=== PATIENT | male | born 1950 | race Caucasian/White ===

== ENCOUNTER → 2017-10-11 | Outpatient (CLI) | payer MEDICARE, OTHER ==
[2017-10-11 10:46] LABS: Basophils % (A) 0 %; Eosinophils # (A) 0.3 k/uL (0-0.7); Eosinophils % (A) 3 %; HCT 44.2 % (39.0-53.0); HGB 15.1 gm/dL (13.0-17.5); Lymphocytes # (A) 2.3 k/uL (1.0-4.8); Lymphocytes % (A) 25 %; MCH 33.8 pg (25.0-35.0); MCHC 34.1 g/dL (31.0-37.0); MCV 99.2 fL (80.0-100.0); Mean Platelet Volume 7.1; Monocytes # (A) 0.8 k/uL (0-1.0); Monocytes % (A) 9 %; Neutrophils # (A) 5.5 k/uL (1.3-7.7); Neutrophils % (A) 59 %; Platelet Count 243 k/uL (150-450); RBC 4.46 m/uL (4.30-5.90); RDW 13.4 % (11.5-15.5); WBC 9.3 k/uL (3.8-10.6)
[2017-10-11 11:55] LABS: Albumin 4.2 g/dL (3.5-5.0); Potassium 5.1 mmol/L (3.5-5.1); Total Protein 7.3 g/dL (6.3-8.2)
[2017-10-11 12:11] LABS: T4, Free (Free Thyroxine) 0.85 ng/dL (0.78-2.19)
[2017-10-11 12:25] LABS: PSA Annual Screen 0.86 ng/mL (0.00-4.00)
== END | disposition home or self-care (01) ==
LOC: LABWHC1 10:05
PROVIDERS: ATTEND Internal Medicine
DX: I10 Essential (primary) hypertension (principal); E78.5 Hyperlipidemia, unspecified
CPT/HCPCS: 84439; 80061; 80053; 84443; 85025; 36415; G0103

== ENCOUNTER 2020-06-27 09:07 | Emergency (ER) | payer MEDICARE, OTHER ==
[2020-06-27 09:24] VITALS: TEMP 99.4
--- NOTE | 2020-06-27 09:53 | ED ---
General Adult HPI - General Chief complaint: Fever Stated complaint: Fever,Weakness Time Seen by Provider: 06/27/20 09:20 Source: patient, RN notes reviewed, old records reviewed Mode of arrival: ambulatory Limitations: no limitations - History of Present Illness Initial comments: This is a 70-year-old male who presents emergency Department with a past medical history significant for COPD. Patient states he comes to the emergency department today because he has had a low-grade fever for 4 days and feeling very weak. Patient denies any shortness of breath more than normal. Patient denies a cough. Patient denies chest pain palpitations. Patient denies headache patient with numbness weakness. Patient denies lightheadedness or dizziness. Patient denies abdominal pain. Patient denies any nausea vomiting but does have diarrhea. Patient denies any swelling to the legs or calf tenderness. - Related Data Home Medications Medication Instructions Recorded Confirmed ALPRAZolam [Xanax] 0.25 tab PO DAILY PRN 02/19/14 06/27/20 Acetaminophen [Tylenol] 325 mg PO QID 02/19/14 06/27/20 Acetaminophen/Diphenhydramine 2 tab PO HS 02/19/14 06/27/20 [Tylenol Pm] Budesonide-Formot 160-4.5 Mcg 2 puff INHALATION RT-BID 02/19/14 06/27/20 [Symbicort 160-4.5 Mcg Inhaler] Cholecalciferol [Vitamin D3] 1,000 unit PO DAILY 02/19/14 06/27/20 Clopidogrel Bisulfate [Clopidogrel] 75 mg PO HS 02/19/14 06/27/20 Levalbuterol Hfa Inhaler [Xopenex 1 puff INHALATION RT-Q6H PRN 02/19/14 06/27/20 Hfa Inhaler] Multivitamin [Men's Multi-Vitamin] 1 tab PO BID 02/19/14 06/27/20 Nitroglycerin Sl Tabs [Nitrostat] 0.4 mg SUBLINGUAL Q5M PRN 02/19/14 06/27/20 Omeprazole 20 mg PO HS 02/19/14 06/27/20 Vitamin B Complex 1 cap PO DAILY 02/19/14 06/27/20 Fish Oil/Flaxseed Oil/Borage Oil 800 mg PO BID 11/16/16 12/26/20 Magnesium Oxide [Mag-Ox] 400 mg PO HS 05/18/16 06/27/20 Metoprolol Tartrate [Lopressor] 25 mg PO BID 05/18/16 06/27/20 Otc Prostate Supplement 700 mg PO TID 05/18/16 06/27/20 Simvastatin [Zocor] 20 mg PO HS 05/18/16 06/27/20 Tongkat Ali Supplement 900 mg PO TID 05/18/16 06/27/20 Ubidecarenone [Co Q-10] 200 mg PO BID 05/18/16 06/27/20 lisinopriL [Zestril] 5 mg PO HS 05/18/16 06/27/20 Previous Rx's Medication Instructions Recorded Dexamethasone [Decadron] 6 mg PO DAILY #10 tablet 06/27/20 Allergies Allergy/AdvReac Type Severity Reaction Status Date / Time No Known Allergies Allergy Verified 06/27/20 10:46 Review of Systems ROS Statement: Those systems with pertinent positive or pertinent negative responses have been documented in the HPI. ROS Other: All systems not noted in ROS Statement are negative. Past Medical History Past Medical History: Asthma, COPD, Hyperlipidemia, Hypertension, Myocardial Infarction ([place]) Additional Past Medical History / Comment(s): AAA History of Any Multi-Drug Resistant Organisms: None Reported Past Surgical History: Coronary Bypass/CABG, Heart Catheterization With Stent Additional Past Surgical History / Comment(s): carotid stent Past Psychological History: No Psychological Hx Reported Smoking Status: Former smoker Past Alcohol Use History: Daily Past Drug Use History: None Reported General Exam - General Exam Comments Initial Comments: GENERAL: Patient is well-developed and well-nourished. Patient is nontoxic and well- hydrated and is in mild distress. ENT: Neck is soft and supple. No significant lymphadenopathy is noted. Oropharynx is clear. Moist mucous membranes. Neck has full range of motion without eliciting any pain. EYES: The sclera were anicteric and conjunctiva were pink and moist. Extraocular movements were intact and pupils were equal round and reactive to light. Eyelids were unremarkable. PULMONARY: Unlabored respirations. Good breath sounds bilaterally. No audible rales rhonchi or wheezing was noted. CARDIOVASCULAR: There is a regular rate and rhythm without any murmurs gallops or rubs. ABDOMEN: Soft and nontender with normal bowel sounds. SKIN: Skin is clear with no lesions or rashes and otherwise unremarkable. NEUROLOGIC: Patient is alert and oriented x3. Cranial nerves II through XII are grossly intact. Motor and sensory are also intact. Normal speech, volume and content. Symmetrical smile. MUSCULOSKELETAL: Normal extremities with adequate strength and full range of motion. LYMPHATICS: No significant lymphadenopathy is noted PSYCHIATRIC: Normal psychiatric evaluation. Limitations: no limitations Course Vital Signs 06/27/20 09:20 Temperature 99.4 F Pulse Rate 102 H Respiratory 18 Rate Blood Pressure 143/80 O2 Sat by Pulse 94 L Oximetry Medical Decision Making - Medical Decision Making EKG shows normal sinus rhythm at [address] interval is on a 42 QRS is under 20 QT interval 348 QTC is 444. Patient's EKG shows no ST segment elevation or depression. Patient has some patchy infiltrates bilaterally. I went back into the room to reevaluate the patient he stated he did not feel any more short of breath. Patient did not want to stay in the hospital he wanted to go home and stated he would come back if he had any shortness of breath or worsening symptoms. - Lab Data Result diagrams: 06/27/20 09:57 06/27/20 09:57 Lab Results 06/27/20 06/27/20 06/27/20 Range/Units 09:57 09:57 09:57 WBC 7.1 (3.8-10.6) k/uL RBC 4.63 (4.30-5.90) m/uL Hgb 16.1 (13.0-17.5) gm/dL Hct 46.5 (39.0-53.0) % MCV 100.4 H (80.0-100.0) fL MCH 34.9 (25.0-35.0) pg MCHC 34.7 (31.0-37.0) g/dL RDW 13.5 (11.5-15.5) % Plt Count 143 L (150-450) k/uL MPV 7.6 Neutrophils % 71 % Lymphocytes % 13 % Monocytes % 9 % Eosinophils % 0 % Basophils % 3 % Neutrophils # 5.0 (1.3-7.7) k/uL Lymphocytes # 1.0 (1.0-4.8) k/uL Monocytes # 0.6 (0-1.0) k/uL Eosinophils # 0.0 (0-0.7) k/uL Basophils # 0.2 (0-0.2) k/uL PT 10.2 (9.0-12.0) sec INR 1.0 (<1.2) APTT 29.8 (22.0-30.0) sec D-Dimer 0.90 H (<0.60) mg/L FEU Sodium 134 L (137-145) mmol/L Potassium 4.5 (3.5-5.1) mmol/L Chloride 103 (98-107) mmol/L Carbon Dioxide 22 (22-30) mmol/L Anion Gap 9 mmol/L BUN 19 (9-20) mg/dL Creatinine 0.94 (0.66-1.25) mg/dL Est GFR (CKD-EPI)AfAm >90 (>60 ml/min/1.73 sqM) Est GFR (CKD-EPI)NonAf 81 (>60 ml/min/1.73 sqM) Glucose 119 H (74-99) mg/dL Plasma Lactic Acid Frederick (0.7-2.0) mmol/L Calcium 9.5 (8.4-10.2) mg/dL Magnesium 2.0 (1.6-2.3) mg/dL Total Bilirubin 0.7 (0.2-1.3) mg/dL AST 57 (17-59) U/L ALT 48 (4-49) U/L Alkaline Phosphatase 87 (38-126) U/L Lactate Dehydrogenase 643 H (313-618) U/L C-Reactive Protein 19.3 H (<10.0) mg/L Total Protein 7.5 (6.3-8.2) g/dL Albumin 4.1 (3.5-5.0) g/dL Urine Color Urine Appearance (Clear) Urine pH (5.0-8.0) Ur Specific [place] (1.001-1.035) Urine Protein (Negative) Urine Glucose (UA) (Negative) Urine Ketones (Negative) Urine Blood (Negative) Urine Nitrite (Negative) Urine Bilirubin (Negative) Urine Urobilinogen (<2.0) mg/dL Ur Leukocyte Esterase (Negative) Urine RBC (0-5) /hpf Urine WBC (0-5) /hpf Hyaline Casts (0-2) /lpf Urine Mucus (None) /hpf Coronavirus (PCR) (Not Detectd) 06/27/20 06/27/20 06/27/20 Range/Units 09:57 09:57 10:17 WBC (3.8-10.6) k/uL RBC (4.30-5.90) m/uL Hgb (13.0-17.5) gm/dL Hct (39.0-53.0) % MCV (80.0-100.0) fL MCH (25.0-35.0) pg MCHC (31.0-37.0) g/dL RDW (11.5-15.5) % Plt Count (150-450) k/uL MPV Neutrophils % % Lymphocytes % % Monocytes % % Eosinophils % % Basophils % % Neutrophils # (1.3-7.7) k/uL Lymphocytes # (1.0-4.8) k/uL Monocytes # (0-1.0) k/uL Eosinophils # (0-0.7) k/uL Basophils # (0-0.2) k/uL PT (9.0-12.0) sec INR (<1.2) APTT (22.0-30.0) sec D-Dimer (<0.60) mg/L FEU Sodium (137-145) mmol/L Potassium (3.5-5.1) mmol/L Chloride (98-107) mmol/L Carbon Dioxide (22-30) mmol/L Anion Gap mmol/L BUN (9-20) mg/dL Creatinine (0.66-1.25) mg/dL Est GFR (CKD-EPI)AfAm (>60 ml/min/1.73 sqM) Est GFR (CKD-EPI)NonAf (>60 ml/min/1.73 sqM) Glucose (74-99) mg/dL Plasma Lactic Acid Frederick 1.1 (0.7-2.0) mmol/L Calcium (8.4-10.2) mg/dL Magnesium (1.6-2.3) mg/dL Total Bilirubin (0.2-1.3) mg/dL AST (17-59) U/L ALT (4-49) U/L Alkaline Phosphatase (38-126) U/L Lactate Dehydrogenase (313-618) U/L C-Reactive Protein (<10.0) mg/L Total Protein (6.3-8.2) g/dL Albumin (3.5-5.0) g/dL Urine Color Yellow Urine Appearance Clear (Clear) Urine pH 6.0 (5.0-8.0) Ur Specific [place] 1.025 (1.001-1.035) Urine Protein 2+ H (Negative) Urine Glucose (UA) Negative (Negative) Urine Ketones 1+ H (Negative) Urine Blood Negative (Negative) Urine Nitrite Negative (Negative) Urine Bilirubin Negative (Negative) Urine Urobilinogen <2.0 (<2.0) mg/dL Ur Leukocyte Esterase Negative (Negative) Urine RBC 1 (0-5) /hpf Urine WBC 1 (0-5) /hpf Hyaline Casts 3 H (0-2) /lpf Urine Mucus Few H (None) /hpf Coronavirus (PCR) Detected A (Not Detectd) Disposition Clinical Impression: Pneumonia due to COVID-19 virus Disposition: HOME SELF-CARE Condition: Good Instructions (If sedation given, give patient instructions): Viral Pneumonia (ED) Prescriptions: Dexamethasone [Decadron] 6 mg PO DAILY #10 tablet Is patient prescribed a controlled substance at d/c from ED?: No Referrals: Alex Ty MD [Primary Care Provider] - 1-2 days Time of Disposition: 12:20
[2020-06-27 10:07] LABS: Basophils # (A) 0.2 k/uL (0-0.2); Basophils % (A) 3 %; Eosinophils % (A) 0 %; HCT 46.5 % (39.0-53.0); HGB 16.1 gm/dL (13.0-17.5); Lymphocytes % (A) 13 %; MCH 34.9 pg (25.0-35.0); MCHC 34.7 g/dL (31.0-37.0); MCV 100.4 fL (80.0-100.0); Mean Platelet Volume 7.6; Monocytes # (A) 0.6 k/uL (0-1.0); Monocytes % (A) 9 %; Neutrophils % (A) 71 %; Platelet Count 143 k/uL (150-450); RBC 4.63 m/uL (4.30-5.90); RDW 13.5 % (11.5-15.5); WBC 7.1 k/uL (3.8-10.6)
--- NOTE | 2020-06-27 10:12 | XR ---
EXAMINATION TYPE: XR chest 1V portable DATE OF EXAM: 06/27/2020 Comparison: 09/28/2011 Clinical History: 70-year-old male cough, Suspected COVID-19 pneumonia Findings: Median sternotomy wires and post-CABG clips. Heart borderline enlarged. Mild interstitial prominence. Patchy peripheral lung opacities on both sides. No sizable effusion. Impression: Patchy peripheral opacities on both sides. COVID pneumonia not excluded.
[2020-06-27 10:19] LABS: ALT 48 U/L (4-49); AST 57 U/L (17-59); African American GFR (CKD) >90 (>60 ml/min/1.73 sqM); Albumin 4.1 g/dL (3.5-5.0); Alkaline Phosphatase 87 U/L (38-126); Anion Gap 9 mmol/L; Blood Urea Nitrogen 19 mg/dL (9-20); C Reactive Protein 19.3 mg/L (<10.0); Calcium 9.5 mg/dL (8.4-10.2); Carbon Dioxide 22 mmol/L (22-30); Chloride 103 mmol/L (98-107); Glucose 119 mg/dL (74-99); LDH 643 U/L (313-618); Non-African American GFR(CKD) 81 (>60 ml/min/1.73 sqM); Potassium 4.5 mmol/L (3.5-5.1); Sodium 134 mmol/L (137-145); Total Bilirubin 0.7 mg/dL (0.2-1.3); Total Protein 7.5 g/dL (6.3-8.2)
[2020-06-27 10:21] LABS: Partial Thromboplastin Time 29.8 sec (22.0-30.0); Prothrombin Time 10.2 sec (9.0-12.0)
[2020-06-27] MEDS ORDERED: dexAMETHasone 2 MG TAB PO STA (10:21)
[2020-06-27 10:26] LABS: D-Dimer 0.9 mg/L FEU (<0.60)
[2020-06-27 10:31] LABS: Appearance,Urine Clear (Clear); Bilirubin,Urine Negative (Negative); Blood,Urine Negative (Negative); Color,Urine Yellow; Glucose,Urine (UA) Negative (Negative); Hyaline Casts,Urine 3 /lpf (0-2); Ketones,Urine 1+ (Negative); Leukocyte Esterase,Urine Negative (Negative); Mucus,Urine Few /hpf; Nitrite,Urine Negative (Negative); Protein,Urine 2+ (Negative); RBC,Urine 1 /hpf (0-5); Specific Gravity,Urine 1.025 (1.001-1.035); Urobilinogen,Urine <2.0 mg/dL (<2.0); WBC,Urine 1 /hpf (0-5)
[2020-06-27 12:35] VITALS: BP 144/70; PULSE 88; RESP 16
[2020-06-27 17:06] LABS: Ferritin 704.9 ng/mL (22.0-322.0)
== END 2020-06-27 12:34 | disposition home or self-care (01) ==
LOC: EC 09:07
DX: U07.1 COVID-19 (principal); J12.89 Other viral pneumonia; J44.9 Chronic obstructive pulmonary disease, unspecified; I10 Essential (primary) hypertension; E78.5 Hyperlipidemia, unspecified; I25.2 Old myocardial infarction; Z79.51 Long term (current) use of inhaled steroids; Z79.02 Long term (current) use of antithrombotics/antiplatelets; Z79.899 Other long term (current) drug therapy; Z95.1 Presence of aortocoronary bypass graft; Z95.5 Presence of coronary angioplasty implant and graft; Z87.891 Personal history of nicotine dependence
CPT/HCPCS: 36415; 93005; 85379; 80053; 82728; 83605; 83615; 83735; 85025; 85610; 85730; 86140; 81001; 87040; 84145; 87635; 71045; 99284; J8540

== ENCOUNTER 2020-10-02 09:02 | Inpatient (IN) | payer MEDICARE, OTHER ==
[2020-10-02] MEDS ORDERED: SODIUM CHLORIDE 0.9% 500 ML 500 ML IV STA (09:42)
--- NOTE | 2020-10-02 09:54 | ED ---
General Adult HPI - General Chief complaint: Shortness of Breath Stated complaint: Covid pneumonia Time Seen by Provider: 10/02/20 09:20 Source: patient, RN notes reviewed, old records reviewed Limitations: no limitations - History of Present Illness Initial comments: This is a 70-year-old male with past medical history significant for bypass surgery congestive heart failure and more recently in June COVID. Patient states since he had COVID he has had increasing weakness and today he was so weak he was finding it difficult to ambulate. Patient states that she generali zed weakness is not focal weakness. Patient denies any fever chills. Patient states he only coughs occasionally at night. Patient denies any shortness of breath or chest pain. Patient denies any palpitations. Patient denies abdominal pain patient denies nausea vomiting or diarrhea. Patient denies any recent injury or trauma. Patient has swelling to the legs or calf tenderness. - Related Data Home Medications Medication Instructions Recorded Confirmed Acetaminophen [Tylenol] 650 mg PO Q4H PRN 02/19/14 10/02/20 Acetaminophen/Diphenhydramine 1 tab PO HS 02/19/14 10/02/20 [Tylenol Pm] Nitroglycerin Sl Tabs [Nitrostat] 0.4 mg SUBLINGUAL Q5M PRN 02/19/14 10/02/20 Vitamin B Complex 1 cap PO DAILY 02/19/14 10/02/20 Metoprolol Tartrate [Lopressor] 25 mg PO BID 05/18/16 10/02/20 Otc Prostate Supplement 1 tab PO TID 05/18/16 10/02/20 Simvastatin [Zocor] 20 mg PO HS 05/18/16 10/02/20 Apixaban [Eliquis] 5 mg PO BID 10/02/20 10/02/20 Aspirin EC [Ecotrin Low Dose] 81 mg PO W/SUPPER 10/02/20 10/02/20 Ergocalciferol (Vitamin D2) 50 mcg PO DAILY 10/02/20 10/02/20 [Vitamin D2 (2000 Iu)] L.acidoph,Paracasei, B.lactis 1 cap PO DAILY 10/02/20 10/02/20 [Probiotic] Magnesium Unknown Dose 2 tab PO W/SUPPER 10/02/20 10/02/20 Allergies Allergy/AdvReac Type Severity Reaction Status Date / Time No Known Allergies Allergy Verified 10/02/20 10:55 Review of Systems ROS Statement: Those systems with pertinent positive or pertinent negative responses have been documented in the HPI. ROS Other: All systems not noted in ROS Statement are negative. Past Medical History Past Medical History: Asthma, COPD, Hyperlipidemia, Hypertension, Myocardial Infarction ([place]) Additional Past Medical History / Comment(s): AAA History of Any Multi-Drug Resistant Organisms: None Reported Past Surgical History: Coronary Bypass/CABG, Heart Catheterization With Stent Additional Past Surgical History / Comment(s): carotid stent Past Psychological History: No Psychological Hx Reported Smoking Status: Former smoker Past Alcohol Use History: None Reported, Daily Past Drug Use History: None Reported General Exam - General Exam Comments Initial Comments: GENERAL: Patient is well-developed and well-nourished. Patient is nontoxic and well- hydrated and is in mild distress. ENT: Neck is soft and supple. No significant lymphadenopathy is noted. Oropharynx is clear. Moist mucous membranes. Neck has full range of motion without sonya citing any pain. EYES: The sclera were anicteric and conjunctiva were pink and moist. Extraocular movements were intact and pupils were equal round and reactive to light. Eyelids were unremarkable. PULMONARY: Unlabored respirations. Good breath sounds bilaterally. No audible rales rhonchi or wheezing was noted. CARDIOVASCULAR: There is a regular rate and rhythm without any murmurs gallops or rubs. ABDOMEN: Soft and nontender with normal bowel sounds. SKIN: Skin is clear with no lesions or rashes and otherwise unremarkable. NEUROLOGIC: Patient is alert and oriented x3. Cranial nerves II through XII are grossly intact. Motor and sensory are also intact. Normal speech, volume and content. Symmetrical smile. MUSCULOSKELETAL: Normal extremities with adequate strength and full range of motion. LYMPHATICS: No significant lymphadenopathy is noted PSYCHIATRIC: Normal psychiatric evaluation. Limitations: no limitations Course Vital Signs 10/02/20 10/02/20 09:19 11:58 Temperature 98.6 F Pulse Rate 122 H 110 H Respiratory 18 20 Rate Blood Pressure 100/63 109/66 O2 Sat by Pulse 95 94 L Oximetry Medical Decision Making - Medical Decision Making EKG shows sinus tachycardia with occasional PVC at a rate of 118 beats a minute. Intervals 166 QRS is 118 QT interval is 328 QTC is 459. EKG shows no significant ST segment elevation. Patient's x-ray showed an infiltrate that had improved since last x-ray. Started the patient on Rocephin. I spoke with Dr. Brannon about the patient he agreed to admit the patient admitted the patient wrote admitting orders - Lab Data Result diagrams: 10/02/20 10:09 10/02/20 10:09 Lab Results 10/02/20 10/02/20 10/02/20 Range/Units 10:09 10:09 10:09 WBC 39.2 H (3.8-10.6) k/uL RBC 4.17 L (4.30-5.90) m/uL Hgb 13.9 (13.0-17.5) gm/dL Hct 40.8 (39.0-53.0) % MCV 97.9 (80.0-100.0) fL MCH 33.3 (25.0-35.0) pg MCHC 34.0 (31.0-37.0) g/dL RDW 13.4 (11.5-15.5) % Plt Count 263 (150-450) k/uL MPV 7.7 Neutrophils % (Manual) 78 % Band Neuts % (Manual) 12 % Lymphocytes % (Manual) 2 % Monocytes % (Manual) 7 % Eosinophils % (Manual) 1 % Neutrophils # (Manual) 35.20 H (1.3-7.7) k/uL Lymphocytes # (Manual) 0.78 L (1.0-4.8) k/uL Monocytes # (Manual) 2.74 H (0-1.0) k/uL Eosinophils # (Manual) 0.39 (0-0.7) k/uL Nucleated RBCs 0 (0-0) /100 WBC Manual Slide Review Performed Toxic Granulation Present Toxic Vacuolation Present PT 11.8 (9.0-12.0) sec INR 1.1 (<1.2) APTT 23.7 (22.0-30.0) sec Sodium 136 L (137-145) mmol/L Potassium 4.4 (3.5-5.1) mmol/L Chloride 102 (98-107) mmol/L Carbon Dioxide 25 (22-30) mmol/L Anion Gap 9 mmol/L BUN 19 (9-20) mg/dL Creatinine 0.91 (0.66-1.25) mg/dL Est GFR (CKD-EPI)AfAm >90 (>60 ml/min/1.73 sqM) Est GFR (CKD-EPI)NonAf 84 (>60 ml/min/1.73 sqM) Glucose 118 H (74-99) mg/dL Plasma Lactic Acid Frederick (0.7-2.0) mmol/L Calcium 12.4 H (8.4-10.2) mg/dL Magnesium 2.0 (1.6-2.3) mg/dL Total Bilirubin 1.0 (0.2-1.3) mg/dL AST 42 (17-59) U/L ALT 34 (4-49) U/L Alkaline Phosphatase 301 H (38-126) U/L Troponin I (0.000-0.034) ng/mL Total Protein 6.6 (6.3-8.2) g/dL Albumin 3.3 L (3.5-5.0) g/dL Urine Color Urine Appearance (Clear) Urine pH (5.0-8.0) Ur Specific [place] (1.001-1.035) Urine Protein (Negative) Urine Glucose (UA) (Negative) Urine Ketones (Negative) Urine Blood (Negative) Urine Nitrite (Negative) Urine Bilirubin (Negative) Urine Urobilinogen (<2.0) mg/dL Ur Leukocyte Esterase (Negative) 10/02/20 10/02/20 10/02/20 Range/Units 10:09 10:09 12:32 WBC (3.8-10.6) k/uL RBC (4.30-5.90) m/uL Hgb (13.0-17.5) gm/dL Hct (39.0-53.0) % MCV (80.0-100.0) fL MCH (25.0-35.0) pg MCHC (31.0-37.0) g/dL RDW (11.5-15.5) % Plt Count (150-450) k/uL MPV Neutrophils % (Manual) % Band Neuts % (Manual) % Lymphocytes % (Manual) % Monocytes % (Manual) % Eosinophils % (Manual) % Neutrophils # (Manual) (1.3-7.7) k/uL Lymphocytes # (Manual) (1.0-4.8) k/uL Monocytes # (Manual) (0-1.0) k/uL Eosinophils # (Manual) (0-0.7) k/uL Nucleated RBCs (0-0) /100 WBC Manual Slide Review Toxic Granulation Toxic Vacuolation PT (9.0-12.0) sec INR (<1.2) APTT (22.0-30.0) sec Sodium (137-145) mmol/L Potassium (3.5-5.1) mmol/L Chloride (98-107) mmol/L Carbon Dioxide (22-30) mmol/L Anion Gap mmol/L BUN (9-20) mg/dL Creatinine (0.66-1.25) mg/dL Est GFR (CKD-EPI)AfAm (>60 ml/min/1.73 sqM) Est GFR (CKD-EPI)NonAf (>60 ml/min/1.73 sqM) Glucose (74-99) mg/dL Plasma Lactic Acid Frederick 1.5 (0.7-2.0) mmol/L Calcium (8.4-10.2) mg/dL Magnesium (1.6-2.3) mg/dL Total Bilirubin (0.2-1.3) mg/dL AST (17-59) U/L ALT (4-49) U/L Alkaline Phosphatase (38-126) U/L Troponin I 0.109 H* (0.000-0.034) ng/mL Total Protein (6.3-8.2) g/dL Albumin (3.5-5.0) g/dL Urine Color Yellow Urine Appearance Clear (Clear) Urine pH 6.0 (5.0-8.0) Ur Specific [place] 1.014 (1.001-1.035) Urine Protein Trace H (Negative) Urine Glucose (UA) Negative (Negative) Urine Ketones Negative (Negative) Urine Blood Negative (Negative) Urine Nitrite Negative (Negative) Urine Bilirubin Negative (Negative) Urine Urobilinogen <2.0 (<2.0) mg/dL Ur Leukocyte Esterase Negative (Negative) Disposition Clinical Impression: Generalized weakness, Leukocytosis, Elevated troponin, Pneumonia Disposition: ADMITTED IP TO THIS [facility] Referrals: Alex Ty MD [Primary Care Provider] - 1-2 days Time of Disposition: 13:14
[2020-10-02 10:34] LABS: ALT 34 U/L (4-49); AST 42 U/L (17-59); African American GFR (CKD) >90 (>60 ml/min/1.73 sqM); Albumin 3.3 g/dL (3.5-5.0); Alkaline Phosphatase 301 U/L (38-126); Anion Gap 9 mmol/L; Blood Urea Nitrogen 19 mg/dL (9-20); Calcium 12.4 mg/dL (8.4-10.2); Carbon Dioxide 25 mmol/L (22-30); Chloride 102 mmol/L (98-107); Glucose 118 mg/dL (74-99); Non-African American GFR(CKD) 84 (>60 ml/min/1.73 sqM); Potassium 4.4 mmol/L (3.5-5.1); Sodium 136 mmol/L (137-145); Total Protein 6.6 g/dL (6.3-8.2)
[2020-10-02 10:35] LABS: HCT 40.8 % (39.0-53.0); HGB 13.9 gm/dL (13.0-17.5); MCH 33.3 pg (25.0-35.0); MCV 97.9 fL (80.0-100.0); Mean Platelet Volume 7.7; Platelet Count 263 k/uL (150-450); RBC 4.17 m/uL (4.30-5.90); RDW 13.4 % (11.5-15.5); WBC 39.2 k/uL (3.8-10.6)
[2020-10-02 10:46] LABS: INR 1.1 (<1.2); Partial Thromboplastin Time 23.7 sec (22.0-30.0); Prothrombin Time 11.8 sec (9.0-12.0)
[2020-10-02 10:49] LABS: Band Neutrophils % 12 %; Eosinophils # (M) 0.39 k/uL (0-0.7); Lymphocytes # (M) 0.78 k/uL (1.0-4.8); Monocytes # (M) 2.74 k/uL (0-1.0); Neutrophils % (M) 78 %; Nucleated Red Blood Cells 0 /100 WBC (0-0); Total Cells Counted 100
[2020-10-02 10:50] LABS: Toxic Granulation Present; Toxic Vacuolation Present
--- NOTE | 2020-10-02 11:01 | XR ---
EXAMINATION TYPE: XR chest 2V DATE OF EXAM: 10/02/2020 COMPARISON: 06/27/2020 HISTORY: 70-year-old male with weakness TECHNIQUE: AP and lateral views FINDINGS: Heart borderline in size. Median sternotomy wires and post-CABG clips. Some mild patchy peripheral de nsities on the right are similar. Some subtle underlying nodularity peripheral left mid to lower lung not clearly seen previously. Underlying edematous change. No pleural effusion. IMPRESSION: The densities previously seen appear better. Patchy change continues in the periphery of the right up per to midlung and may in part be chronic. Subtle infiltrate difficult to exclude. Underlying COPD. N odularity left mid to lower lung not as well-seen previously. There may be an underlying pulmonary no dule.
[2020-10-02] MEDS ORDERED: cefTRIAXone IN SWFI 1,000 MG/10 ML SYRINGE IVP STA ×2 (12:10→13:19)
[2020-10-02 12:43] LABS: Appearance,Urine Clear (Clear); Bilirubin,Urine Negative (Negative); Blood,Urine Negative (Negative); Color,Urine Yellow; Glucose,Urine (UA) Negative (Negative); Ketones,Urine Negative (Negative); Leukocyte Esterase,Urine Negative (Negative); Nitrite,Urine Negative (Negative); Protein,Urine Trace (Negative); Specific Gravity,Urine 1.014 (1.001-1.035); Urobilinogen,Urine <2.0 mg/dL (<2.0)
[2020-10-02] MEDS ORDERED: AZITHROMYCIN 500 MG in SODIUM CHLORIDE 0.9% 250 ML IVPB STA (13:19)
--- NOTE | 2020-10-02 15:10 | CT ---
CT CHEST FOR PULMONARY EMBOLISM. EXAMINATION TYPE: CT angio chest DATE OF EXAM: 10/02/2020 INDICATION: elevated dimer CT DLP: 557.8 mGycm, Automated exposure control for dose reduction was used. CONTRAST: Patient injected with 100 mL of Isovue 370. COMPARISON: 05/18/2016 TECHNIQUE: CT of the chest is performed on a spiral scan at 2 mm thick sections. Study is performed with intravenous contrast timed for evaluation for pulmonary embolism. This will limit additional po rtions of the evaluation. 3-D MIP images reconstructed by the technologist are reviewed on the compu ter in the coronal and sagittal planes. FINDINGS: No persistent filling defects are evident to suggest an acute pulmonary embolism. Marked enlargement of multiple lymph nodes are present through the mediastinum is included superior m ediastinum pretracheal space, right peribronchial, subcarinal regions and infrahilar regions. The ascending aorta diameter at the level of the main pulmonary artery is 3.8 cm. The main pulmonary artery diameter at the bifurcation is 2.7 cm. There appears to be some stable apical scarring. There is a small nodule in the posterior lateral rig ht lung base measuring 0.7 cm. Series 401 image 108.r there is masslike pleural-based density in the posterior right lung base measuring 2.3 x 1.5 cm. Series 401 image 94. There is an irregular masslike area within the right upper lobe measuring 1.7 x 2.5 cm. Series 401 image 33. There appears to be a cavitary area within the posterior medial right lung. This could be related to the extensive emphysematous blebs and bulla are also present through the bilateral lung coe. Limited CT section through the upper abdomen. There are multiple rounded hypodensities with periphera l enhancement within the liver compatible with multiple metastatic lesions. The largest is in the lat eral right superior lobe measuring 2.7 cm. Multiple additional lesions measure closer to 1.8 cm. IMPRESSIONS: 1. Right apical and posterior right lower lobe masses. Primary or metastatic disease could be conside red. 2. Extensive enlargement of multiple lymph nodes throughout the mediastinum and right hilar regions c ompatible with metastatic disease. 3. Multiple hypodense peripherally enhancing lesions within the liver compatible with metastasis. 4. No acute pulmonary embolism. Recommendations: 1. Recommend workup for primary neoplasm source.
[2020-10-02] MEDS ORDERED: IOPAMIDOL CONTRAST (ORAL USE) VIAL PO PRN (17:10)
[2020-10-02] MEDS ORDERED: IPRATROPIUM-ALBUTEROL 3 ML NEB INHALATION PRN (17:12)
[2020-10-02] MEDS ORDERED: NON FORMULARY DRUG (Aspirin Ec 81 MG Tablet.Dr) PO SCH (17:30)
[2020-10-02] MEDS ORDERED: [UNRECOGNIZED DRUG - OTHER] PO SCH (17:30)
[2020-10-02] MEDS: HYDROmorphone 0.5 MG/0.5 ML SYRINGE IVP PRN (18:12)
--- NOTE | 2020-10-02 18:27 | US ---
EXAMINATION TYPE: US venous doppler duplex LE DATE OF EXAM: 10/02/2020 6:03 PM COMPARISON: NONE CLINICAL HISTORY: dvt. R/O DVT. Patient is on eliquis. SIDE PERFORMED: Bilateral TECHNIQUE: The lower extremity deep venous system is examined utilizing real time linear array sonog ginger with graded compression, doppler sonography and color-flow sonography. VESSELS IMAGED: Common Femoral Vein Deep Femoral Vein Greater Saphenous Vein * Femoral Vein Popliteal Vein Small Saphenous Vein * Proximal Calf Veins (* superficial vessels) Right Leg: No evidence of DVT in veins imaged at this time from prox calf veins to CFV/GSV. Left Leg: Thrombus seen in calf veins at ankle level. These veins do not compress or show color mario w. Noncompressible vessel with no color flow seen posterior knee, superficial to the popliteal vein. IMPRESSION: There is limited deep vein thrombosis in the left lower leg. No evidence of deep vein thrombosis in the right leg.
[2020-10-02 18:43] LABS: ALT 32 U/L (4-49); AST 42 U/L (17-59); African American GFR (CKD) >90 (>60 ml/min/1.73 sqM); Albumin 3.2 g/dL (3.5-5.0); Alkaline Phosphatase 280 U/L (38-126); Anion Gap 8 mmol/L; Blood Urea Nitrogen 17 mg/dL (9-20); Calcium 11.9 mg/dL (8.4-10.2); Carbon Dioxide 25 mmol/L (22-30); Chloride 102 mmol/L (98-107); Glucose 101 mg/dL (74-99); LDH 1127 U/L (313-618); Non-African American GFR(CKD) >90 (>60 ml/min/1.73 sqM); Potassium 4.4 mmol/L (3.5-5.1); Sodium 135 mmol/L (137-145); Total Bilirubin 0.7 mg/dL (0.2-1.3); Total Protein 6.2 g/dL (6.3-8.2)
[2020-10-02 18:56] LABS: C Reactive Protein 263.5 mg/L (<10.0)
--- NOTE | 2020-10-02 19:53 | HP ---
HISTORY AND PHYSICAL DATE OF SERVICE: 10/02/2020 CHIEF COMPLAINT: Shortness of breath. HISTORY OF PRESENT ILLNESS: This 70-year-old gentleman with a past medical history of asthma, COPD, hypertension, hyperlipidemia, history of myocardial function, history of CAD, CABG, being followed by Dr. Ty in the outpatient setting, was complaining of shortness of breath. The patient apparently had COVID-19 in June 2019, and the patient had a slow recovery. Patient also had episodes of COVID pneumonia which were treated in the outpatient setting. Patient was never admitted. Currently the patient has multiple complaints, including shortness of breath and generalized weakness. The patient came to [facility] and was admitted for evaluation and treatment. Chest x-ray, report of which was reviewed at length, showed right apical and posterior right lower lobe masses; primary metastatic disease could not be ruled out; and extensive enlargement of multiple lymph nodes throughout the mediastinum and right hilar region also noted with multiple hypodensities in the liver also noted. Primary malignancy has to be ruled out. There is no history of fever or rigors. No history of headache, loss of consciousness, seizures at this time. PAST MEDICAL HISTORY: History of asthma, COPD, hypertension, hyperlipidemia, recent COVID infection, myocardial infarction, abdominal aortic aneurysm. MEDICATIONS: Vitamin B complex, Zocor, Nitrostat, Lopressor, vitamin D, aspirin, Eliquis, Tylenol. Doses are reviewed. ALLERGIES: NONE. FAMILY HISTORY: No history of heart disease or strokes in the family. SOCIAL HISTORY: Previous history of smoking. Occasional alcohol intake. REVIEW OF SYSTEMS: ENT: No diminished hearing. No diminished vision. CARDIOVASCULAR SYSTEM: As mentioned earlier. RESPIRATORY SYSTEM: As mentioned earlier. GI: No nausea, vomiting. : No dysuria or retention. NERVOUS SYSTEM: As mentioned earlier. ALLERGY/IMMUNOLOGY: No asthma, hayfever. MUSCULOSKELETAL: As mentioned earlier. HEMATOLOGY/ONCOLOGY: No history of anemia. ENDOCRINE: No history of diabetes, hypothyroidism. CONSTITUTIONAL: As mentioned earlier. DERMATOLOGY: Negative. RHEUMATOLOGY: Negative. PSYCHIATRY: As mentioned earlier. PHYSICAL EXAMINATION: Patient alert and oriented x3. Pulse is 110, blood pressure 109/66, respiration 20, temperature 98.6, pulse ox 94% on room air. HEENT: Conjunctivae normal. NECK: No jugular venous distention. CARDIOVASCULAR SYSTEM: S1, S2 muffled. RESPIRATORY SYSTEM: Breath sounds diminished at the bases. A few scattered rhonchi. ABDOMEN: Soft, obese, non-tender. NERVOUS SYSTEM: Higher functions as mentioned earlier. Moves all 4 limbs. No focal motor or sensory deficit. LYMPHATICS: No lymph node palpable in neck, axillae or groin. SKIN: No ulcer, rash, bleeding. JOINTS: No active deforming arthropathy. LABS: WBC 13.2 and D-dimer is 13.97. Sodium is 136. Troponin 0.109. ASSESSMENT: 1. Shortness of breath and weakness for evaluation. Rule out multiple pulmonary metastases or primary malignancy. 2. Right apical and posterior right lower lobe lung masses with extensive enlargement of multiple lymph nodes throughout the mediastinum and right hilar regions. 3. Multiple hypodense areas peripherally in the liver. 4. Recent COVID-19 infection. 5. Increased white count. 6. Increased D-dimer without any evidence of acute pulmonary embolism. 7. Hyponatremia. 8. Hypercalcemia. 9. Troponin 0.109. Rule out acute bwq-TI-siqbvao-elevation myocardial infarction. 10.Increased alkaline phosphatase. 11.Tachycardia and premature ventricular contractions. 12.History of asthma and chronic obstructive pulmonary disease. 13.Hypertension. 14.Hyperlipidemia. 15.Myocardial infarction. 16.History of abdominal aortic aneurysm. 17.History of coronary artery disease, coronary artery bypass grafting, stent. 18.Remote history of nicotine dependence. 19.Obesity with body mass index of 31.7. RECOMMENDATIONS AND DISCUSSION: In this 70-year-old gentleman who presented with multiple complex medical issues, we will monitor the patient closely, continue the current medical management, continue symptomatic treatment. I recommend CT scan of the abdomen and pelvis as well as CT of the brain to complete the workup. I would also recommend pulmonary consultation and hematology/oncology consultation as well. The patient might need either a fine-needle aspiration biopsy or bronchoscopic biopsy. Prognosis extremely guarded because of multiple complex medical issues. I would also recommend a 2D echo with Doppler and a cardiology evaluation to complete the workup. The home medications will be reconciled. Symptomatic treatment also will be provided. Further recommendations to follow. A copy of this dictation is being forwarded to Dr. Ty, who is the primary physician. MMODL / IJN: [id number] /
[2020-10-02] MEDS: IPRATROPIUM-ALBUTEROL 3 ML NEB INHALATION SCH (20:33)
--- NOTE | 2020-10-02 20:46 | CT ---
EXAMINATION TYPE: CT brain wo con DATE OF EXAM: 10/02/2020 COMPARISON: None HISTORY: weakness for 2+ months CT DLP: 1221.4 mGycm Automated exposure control for dose reduction was used. Images obtained of the brain without contrast. There is cerebral cortical atrophy. There is no mass effect or midline shift. There is no sign of int racranial hemorrhage. Calvarium is intact. Skull base is intact. There is normal aeration of the mast oid sinuses. IMPRESSION: Cerebral atrophy. No acute intracranial abnormality.
--- NOTE | 2020-10-02 20:59 | CT ---
EXAMINATION TYPE: CT abdomen pelvis wo con DATE OF EXAM: 10/02/2020 COMPARISON: 05/18/2016 HISTORY: Abnormal CTA chest. CT DLP: 1104.4 mGycm Automated exposure control for dose reduction was used. Images obtained without contrast from the diaphragm to the floor the pelvis. There are numerous variable-sized hypodense foci throughout the liver suggestive of metastatic diseas e. Heart size is normal. There is a 3 cm rounded infiltrate in the subpleural posterior right lower l obe. There is no pleural effusion. There is mild subsegmental atelectasis right lung base. Spleen is intact. There is no evidence of pancreatic mass. Gallbladder appears normal. The bile ducts are not dilated. The stomach is intact. There is deformed small left kidney with significant cortical thinning in the upper pole. There is co ntrast in the renal collecting systems from previous CT scan today. There is 2 cm cortical cyst later al right kidney. There is no retroperitoneal adenopathy. There is aortoiliac stent noted. There is 4 cm aneurysm of the lower abdominal aorta. Bladder distends smoothly without contrast. There is no ing uinal hernia. There is no free fluid in the pelvis. There is no evidence of a pelvic mass. There is no mesenteric edema. There is no ascites or free air. There is no bowel obstruction. Appendi x is not definitely seen. There is no sign of thickened appendix. IMPRESSION: Numerous liver lesions suggestive of metastatic disease. This appears new compared to old exam. Small left kidney similar to old exam. Abdominal aortic aneurysm is smaller than old exam. Rounded infiltrate in the subpleural posterior right lower lobe. Tumor not excluded.
[2020-10-02] MEDS: METOPROLOL TARTRATE 25 MG TAB PO SCH (22:02)
[2020-10-02] MEDS: ATORVASTATIN 10 MG TAB PO SCH (22:03)
[2020-10-02] MEDS: HYDROcodone/APAP 5-325MG 1 EACH TAB PO PRN (22:03)
[2020-10-02] MEDS ORDERED: HEPARIN SODIUM 1,000 UN/ML (10ML VL) IV PRN (23:57)
[2020-10-02] MEDS ORDERED: HEPARIN SODIUM 1,000 UN/ML (10ML VL) IV ONE (23:57)
[2020-10-03] MEDS: NON FORMULARY DRUG (Acetaminophen/Diphenhydramine [Tylenol Pm 500-25mg] 1 EACH Tablet) PO SCH ×2 (00:23→20:59)
[2020-10-03] MEDS: TEMAZEPAM 15 MG CAP PO PRN ×2 (00:28→21:18)
[2020-10-03] MEDS: HEPARIN SOD,PORK IN 0.45% NACL 25,000 UNIT in 0.45% NACL 1 250ML.BAG IV SCH ×2 (00:28→21:21)
[2020-10-03 03:45] LABS: Ferritin 1700.3 ng/mL (22.0-322.0)
[2020-10-03] MEDS: ACETAMINOPHEN TAB 325 MG TAB PO PRN (05:32)
--- NOTE | 2020-10-03 08:47 | ECHOF ---
Referral Reason:Elevated troponin MEASUREMENTS -------- HEIGHT: 185.4 cm WEIGHT: 108.9 kg BP: 109/66 RVIDd: 3.6 cm (< 3.3) IVSd: 1.4 cm (0.6 - 1.1) LVIDd: 5.4 cm (3.9 - 5.3) LVPWd: 1.3 cm (0.6 - 1.1) IVSs: 2.1 cm LVIDs: 4.1 cm LVPWs: 2.1 cm LA Diam: 4.5 cm (2.7 - 3.8) LAESV Index (A-L): 18.01 ml/m Ao Diam: 3.5 cm (2.0 - 3.7) AV Cusp: 2.4 cm (1.5 - 2.6) MV EXCURSION: 20.824 mm (> 18.000) MV EF SLOPE: 124 mm/s (70 - 150) EPSS: 1.0 cm MV E Archie: 0.91 m/s MV DecT: 149 ms MV A Archie: 1.03 m/s MV E/A Ratio: 0.89 FINDINGS -------- Resting tachycardia (HR>100bpm). Suboptimal image quality - poor subcostal views. The left ventricular size is normal. There is moderate concentric left ventricular hypertrophy. O verall left ventricular systolic function is low-normal with, an EF between 50 - 55 %. Basal inferi or LV wall motion is hypokinetic. Basal inferoseptal LV wall motion is hypokinetic. The right ventricle is mildly enlarged. The left atrium is normal in size. The right atrium is normal in size. 5.0mg of Lumason was utilized for enhancement of images The aortic valve is trileaflet and appears structurally normal. There is trace to mild mitral regurgitation. The tricuspid valve appears structurally normal. Unable to estimate RVSP due to inadequate TR jet s pectral doppler profile. There is no pulmonic regurgitation present. The aortic root size is normal. Normal inferior vena cava with normal inspiratory collapse consistent with estimated right atrial pre ssure of 5 mmHg. There is no pericardial effusion. CONCLUSIONS -------- 1. Resting tachycardia (HR>100bpm). 2. Suboptimal image quality - poor subcostal views. 3. The left ventricular size is normal. 4. There is moderate concentric left ventricular hypertrophy. 5. Basal inferior LV wall motion is hypokinetic. 6. Basal inferoseptal LV wall motion is hypokinetic. 7. The right ventricle is mildly enlarged. 8. 5.0mg of Lumason was utilized for enhancement of images 9. There is trace to mild mitral regurgitation. 10. There is no pericardial effusion. COMM[employer]CIAL LENDER: Caty De Los Santos RDCS
[2020-10-03] MEDS ORDERED: ASPIRIN 325 MG TAB PO SCH (09:00)
[2020-10-03] MEDS ORDERED: cefTRIAXone 1,000 MG VIAL (IM USE) IM SCH (09:00)
[2020-10-03] MEDS: IPRATROPIUM-ALBUTEROL 3 ML NEB INHALATION SCH ×3 (09:02→19:42)
[2020-10-03] MEDS: ASPIRIN 81 MG PO SCH (09:50)
[2020-10-03] MEDS: PANTOPRAZOLE 40 MG/10 ML VIAL IVP SCH (09:50)
[2020-10-03] MEDS: LACTOBACILLUS ACIDOPH & BULGAR 1 EACH PACKET PO SCH (09:51)
[2020-10-03] MEDS: AZITHROMYCIN 500 MG in SODIUM CHLORIDE 0.9% 250 ML IVPB SCH (09:51)
[2020-10-03] MEDS: METOPROLOL TARTRATE 25 MG TAB PO SCH ×2 (09:51→21:18)
[2020-10-03] MEDS: ERGOCALCIFEROL 1,250 MCG (50,000 IU) CAPSULE PO SCH (09:52)
[2020-10-03 10:14] LABS: HCT 40.8 % (39.0-53.0); HGB 13.6 gm/dL (13.0-17.5); MCH 33.1 pg (25.0-35.0); MCHC 33.3 g/dL (31.0-37.0); MCV 99.6 fL (80.0-100.0); Mean Platelet Volume 8.1; Platelet Count 262 k/uL (150-450); RDW 13.5 % (11.5-15.5)
[2020-10-03 10:18] LABS: Cholesterol 127 mg/dL (<200); HDL Cholesterol 36 mg/dL (40-60); LDL Cholesterol,Calculated 61 mg/dL (0-99); Triglycerides 150 mg/dL (<150)
[2020-10-03 10:27] LABS: WBC 44.4 k/uL (3.8-10.6)
--- NOTE | 2020-10-03 12:37 | P.CRDCN ---
History of Present Illness Consult date: 10/03/20 History of present illness: HISTORY OF PRESENT ILLNESS: This is a 70-year-old male with a past medical history significant for COPD, hypertension, hyperlipidemia, AAA, coronary artery disease with previous CABG and stenting, and former nicotine dependence. Patient follows in the office with Dr. Esteves. We have been asked to see the patient in consultation for elevated troponins. Patient examined at the bedside. Patient presented to the hospital secondary to increasing fatigue. Patient states him and his both had Covid in June 2020. He reports that she improved and got better but he states he has not. He reports extreme weakness and states his has been helping to take care of him at home. The patient currently denies any chest pain or pressure. He does report shortness of breath with exertion. He states he used to smoke 2 packs per day and quit in 2014. EKG reveals sinus mechanism with no signs of acute ischemia Chest xray patchy changes continuing the periphery of the right upper to mid lung and may be part and chronic. Subtle infiltrate difficult excluded. Underlying COPD. Chest CTA: Negative for pulmonary embolism. A right apical and posterior right lower lung mass. Abdomen CT and pelvis: Numerous liver lesions suggestive of metastatic disease. Laboratory data: WBC 44.4. Hemoglobin 13.6. Platelet count 262. Sodium 135. Potassium 4.4. BUN 17. Creatinine 0.76. Troponin 0.109. 0.115. 0.122. Current home cardiac medications include simvastatin 20 mg daily, metoprolol tartrate 25 mg twice a day, aspirin 81 mg daily, Eliquis 5 mg twice a day Most recent echocardiogram obtained reveals ejection fraction 50-55%. Basal inferior LV wall hypokinesis REVIEW OF SYSTEMS: At the time of my exam: CONSTITUTIONAL: Denies fever or chills. Reports weakness. HEENT: Denies blurred vision, vision changes, or eye pain. Denies hemoptysis CARDIOVASCULAR: Denies chest pain. Denies orthopnea. Denies PND. Denies palpitations RESPIRATORY: Denies shortness of breath. GASTROINTESTINAL: Denies abdominal pain. Denies nausea or vomiting. HEMATOLOGIC: Denies bleeding disorders. GENITOURINARY: Denies any blood in urine. SKIN: Denies pruitis. Denies rash. PHYSICAL EXAM: VITAL SIGNS: Reviewed. GENERAL: Well-developed in no acute distress. HEENT: Head is normocephalic. Pupils are equal, round. Sclerae anicteric. Mucous membranes of the mouth are moist. Neck supple. No JVD or thyromegaly LUNGS: Respirations even and unlabored. Lungs diminished bilaterally. HEART: Regular rate and rhythm. S1 and S2 heard. Soft systolic murmur noted. ABDOMEN: Soft. Nondistended. Nontender. EXTREMITIES: Normal range of motion. No clubbing or cyanosis. Peripheral pulses intact. No lower extremity edema NEUROLOGIC: Awake and alert. Oriented x 3. ASSESSMENT: Generalized weakness Right apical and posterior right lower lobe lung mass, per CTA Numerous liver lesions, suggestive of metastatic disease per CT History of CovJune 2020 Abnormal troponins, not indicative of myocardial injury Coronary artery disease with previous stenting and CABG 2011 Paroxysmal atrial fibrillation, on anticoagulation with Eliquis History of AAA, status post endovascular repair Hypertension Hyperlipidemia History of nicotine dependence, patient smoked 2 packs per day and quit in 2014 PLAN: Resume home cardiac medications Echo obtained and reviewed. LV wall hypokinesis likely secondary to previous NM. Pulmonary consulted for evaluation of lung masses Will continue IV heparin until patient is evaluated by pulmonary. If no plans for any procedures to be performed by pulmonary service, will discontinue IV hep justice and transition patient back to his Eliquis Further recommendations pending patient's course Nurse practitioner note has been reviewed by physician. Signing provider agrees with the documented findings, assessment, and plan of care. Past Medical History Past Medical History: Asthma, COPD, Hyperlipidemia, Hypertension, Myocardial Infarction (NM) Additional Past Medical History / Comment(s): AAA Last Myocardial Infarction Date:: 12/25/2006 History of Any Multi-Drug Resistant Organisms: None Reported Past Surgical History: Coronary Bypass/CABG, Heart Catheterization With Stent Additional Past Surgical History / Comment(s): carotid stent Past Anesthesia/Blood Transfusion Reactions: No Reported Reaction Date of Last Stent Placement:: 12/2006 Past Psychological History: No Psychological Hx Reported Smoking Status: Former smoker Past Alcohol Use History: None Reported, Daily Past Drug Use History: None Reported Medications and Allergies Home Medications Medication Instructions Recorded Confirmed Type Acetaminophen [Tylenol] 650 mg PO Q4H PRN 02/19/14 10/02/20 History Acetaminophen/Diphenhydramine 1 tab PO HS 02/19/14 10/02/20 History [Tylenol Pm] Nitroglycerin Sl Tabs [Nitrostat] 0.4 mg SUBLINGUAL Q5M PRN 02/19/14 10/02/20 History Vitamin B Complex 1 cap PO DAILY 02/19/14 10/02/20 History Metoprolol Tartrate [Lopressor] 25 mg PO BID 05/18/16 10/02/20 History Otc Prostate Supplement 1 tab PO TID 05/18/16 10/02/20 History Simvastatin [Zocor] 20 mg PO HS 05/18/16 10/02/20 History Apixaban [Eliquis] 5 mg PO BID 10/02/20 10/02/20 History Aspirin EC [Ecotrin Low Dose] 81 mg PO W/SUPPER 10/02/20 10/02/20 History Ergocalciferol (Vitamin D2) 50 mcg PO DAILY 10/02/20 10/02/20 History [Vitamin D2 (2000 Iu)] L.acidoph,Paracasei, B.lactis 1 cap PO DAILY 10/02/20 10/02/20 History [Probiotic] Magnesium Unknown Dose 2 tab PO W/SUPPER 10/02/20 10/02/20 History Allergies Allergy/AdvReac Type Severity Reaction Status Date / Time No Known Allergies Allergy Verified 10/02/20 10:55 Physical Exam Vitals: Vital Signs Temp Pulse Pulse Resp BP BP Pulse Ox 10/03/20 09:53 97.9 F 105 H 20 142/74 94 L 10/03/20 09:12 80 10/03/20 09:04 86 10/03/20 04:00 97 18 125/80 97 10/03/20 01:03 108 H 18 10/02/20 22:07 97.6 F 108 H 18 121/68 96 10/02/20 22:00 108 H 18 10/02/20 20:43 97.4 F L 115 H 18 135/79 97 10/02/20 18:13 102 H 18 109/66 99 10/02/20 11:58 110 H 20 109/66 94 L Intake and Output 10/02/20 10/03/20 10/03/20 22:59 06:59 14:59 Intake Total 660 450 540 Output Total 100 Balance 560 450 540 Intake: Oral 660 450 540 Output: Urine 100 Other: # Voids 1 Weight 108.862 kg 103 kg Results 10/03/20 09:09 10/02/20 18:06 Cardiac Enzymes 10/02/20 10/02/20 10/02/20 Range/Units 13:31 17:05 18:06 AST 42 (17-59) U/L Lactate Dehydrogenase 1127 H (313-618) U/L Troponin I 0.115 H* 0.122 H* (0.000-0.034) ng/mL Coagulation 10/03/20 Range/Units 09:09 APTT 36.8 H (22.0-30.0) sec Lipids 10/03/20 Range/Units 09:09 Triglycerides 150 H (<150) mg/dL Cholesterol 127 (<200) mg/dL HDL Cholesterol 36 L (40-60) mg/dL CBC 10/03/20 Range/Units 09:09 WBC 44.4 H (3.8-10.6) k/uL RBC 4.10 L (4.30-5.90) m/uL Hgb 13.6 (13.0-17.5) gm/dL Hct 40.8 (39.0-53.0) % Plt Count 262 (150-450) k/uL Comprehensive Metabolic Panel 10/02/20 Range/Units 18:06 Sodium 135 L (137-145) mmol/L Potassium 4.4 (3.5-5.1) mmol/L Chloride 102 (98-107) mmol/L Carbon Dioxide 25 (22-30) mmol/L BUN 17 (9-20) mg/dL Creatinine 0.76 (0.66-1.25) mg/dL Glucose 101 H (74-99) mg/dL Calcium 11.9 H (8.4-10.2) mg/dL AST 42 (17-59) U/L ALT 32 (4-49) U/L Alkaline Phosphatase 280 H (38-126) U/L Total Protein 6.2 L (6.3-8.2) g/dL Albumin 3.2 L (3.5-5.0) g/dL Current Medications Generic Name Dose Route Start Last Admin Trade Name Freq PRN Reason Stop Dose Admin Acetaminophen 650 mg 10/02/20 17:08 10/03/20 05:32 Acetaminophen Tab 325 Mg Tab PO 650 mg Q4H PRN Administration Pain or Fever > 100.5 Hydrocodone Bitart/Acetaminophen 1 each 10/02/20 17:13 10/02/20 22:03 Hydrocodone/Apap 5-325mg 1 Each Tab PO 1 each Q6HR PRN Administration Pain Albuterol/Ipratropium 3 ml 10/02/20 20:00 10/03/20 09:02 Ipratropium-Albuterol 3 Ml Neb INHALATION 3 ml RT-TID ARMANDO Administration Albuterol/Ipratropium 3 ml 10/02/20 17:12 Ipratropium-Albuterol 3 Ml Neb INHALATION RT-TID PRN Shortness Of Breath Or Wheezing Alprazolam 0.25 mg 10/02/20 17:13 Alprazolam 0.25 Mg Tab PO TID PRN Anxiety Aspirin 81 mg 10/03/20 09:00 10/03/20 09:50 Aspirin 81 Mg PO 81 mg DAILY ARMANDO Administration Atorvastatin Calcium 10 mg 10/02/20 21:00 10/02/20 22:03 Atorvastatin 10 Mg Tab PO 10 mg HS ARMANDO Administration Ergocalciferol 1,250 mcg 10/03/20 09:00 10/03/20 09:52 Ergocalciferol 1,250 Mcg (50,000 Iu) Capsule PO 1,250 mcg DAILY ARMANDO Administration Heparin Sodium (Porcine) 0 unit 10/02/20 23:57 Heparin Sodium 1,000 Un/Ml (10ml Vl) IV PER PROTOCOL PRN Low PTT Protocol Hydromorphone HCl 0.5 mg 10/02/20 17:13 10/02/20 18:12 Hydromorphone 0.5 Mg/0.5 Ml Syringe IVP 0.5 mg Q6HR PRN Administration Severe Pain Azithromycin 500 mg/ Sodium 250 mls @ 250 mls/hr 10/03/20 09:00 10/03/20 09:51 Chloride IVPB 250 mls/hr DAILY ARMANDO Administration Ceftriaxone Sodium 1 gm/ 50 mls @ 100 mls/hr 10/03/20 09:00 10/03/20 09:52 Sodium Chloride IVPB 100 mls/hr Q24HR ARMANDO Administration Heparin Sodium/Sodium Chloride 250 mls @ 10.004 mls/hr 10/02/20 23:45 10/03/20 00:28 25,000 unit/ Sodium Chloride IV 9.19 units/kg/hr .Q24H ARMANDO 10.004 mls/hr Administration Protocol 9.19 UNITS/KG/HR Iopamidol 30 ml 10/02/20 17:10 Iopamidol Contrast (Oral Use) Vial PO 10/03/20 17:[address] Scan Lactobacillus Acidoph/Bulgaricus 1 each 10/03/20 09:00 10/03/20 09:51 Lactobacillus Acidoph & Bulgar 1 Each Packet PO 1 each DAILY ARMANDO Administration Metoprolol Tartrate 25 mg 10/02/20 21:00 10/03/20 09:51 Metoprolol Tartrate 25 Mg Tab PO 25 mg BID ARMANDO Administration Nitroglycerin 0.4 mg 10/02/20 13:14 Nitroglycerin Sl Tabs 0.4 Mg Tab SUBLINGUAL Q5M PRN Chest Pain Non-Formulary Medication 1 cap 10/03/20 09:00 Vitamin B Complex [Vitamin B Complex] PO DAILY ARMANDO Non-Formulary Medication 1 tab 10/02/20 21:00 10/03/20 00:23 Acetaminophen/Diphenhydramine [Tylenol Pm 500-25mg] PO Not Given HS ARMANDO Pantoprazole Sodium 40 mg 10/03/20 09:00 10/03/20 09:50 Pantoprazole 40 Mg/10 Ml Vial IVP 40 mg DAILY ARMANDO Administration Temazepam 15 mg 10/02/20 17:13 10/03/20 00:28 Temazepam 15 Mg Cap PO 15 mg HS PRN Administration Insomnia Intake and Output 10/02/20 10/03/20 10/03/20 22:59 06:59 14:59 Intake Total 660 450 540 Output Total 100 Balance 560 450 540 Intake: Oral 660 450 540 Output: Urine 100 Other: # Voids 1 Weight 108.862 kg 103 kg 10/03/20 09:09 10/02/20 18:06
[2020-10-03] MEDS: HYDROmorphone 0.5 MG/0.5 ML SYRINGE IVP PRN (13:05)
[2020-10-03 13:25] LABS: Band Neutrophils % 4 %; Eosinophils # (M) 0.44 k/uL (0-0.7); Lymphocytes # (M) 2.66 k/uL (1.0-4.8); Metamyelocytes # (M) 0.44 k/uL (0); Metamyelocytes % 1 %; Monocytes # (M) 1.33 k/uL (0-1.0); Myelocytes # (M) 0.44 k/uL (0); Myelocytes % 1 %; Neutrophils % (M) 87 %; Nucleated Red Blood Cells 0 /100 WBC (0-0); Total Cells Counted 200
[2020-10-03 14:40] LABS: ALT 32 U/L (4-49); AST 44 U/L (17-59); African American GFR (CKD) >90 (>60 ml/min/1.73 sqM); Albumin 3.2 g/dL (3.5-5.0); Alkaline Phosphatase 300 U/L (38-126); Anion Gap 8 mmol/L; Blood Urea Nitrogen 18 mg/dL (9-20); Calcium 12.6 mg/dL (8.4-10.2); Carbon Dioxide 27 mmol/L (22-30); Chloride 102 mmol/L (98-107); Glucose 110 mg/dL (74-99); Non-African American GFR(CKD) 85 (>60 ml/min/1.73 sqM); Potassium 5.1 mmol/L (3.5-5.1); Sodium 137 mmol/L (137-145); Total Bilirubin 0.7 mg/dL (0.2-1.3); Total Protein 6.5 g/dL (6.3-8.2)
--- NOTE | 2020-10-03 15:17 | PN ---
PROGRESS NOTE DATE OF SERVICE: 10/03/2020 This 70-year-old gentleman who was admitted with shortness of breath is being evaluated for the possibility of multiple metastases. There are metastatic lesions of the lung and liver also. Interventional radiology biopsy is being arranged at this time. The patient also had abdominal and pelvis CT scan and brain CT scan which was reviewed personally by me. CT scan of the brain showed some cerebral atrophy. The CT abdomen showed multiple metastatic lesions. The patient is also being evaluated for CHF. A 2D echo with Doppler which was done yesterday showed ejection fraction about 50-55% and LV wall motion is hypokinetic. Cardiology has seen the patient. Recommend continue IV heparin. Pulmonary consultation ongoing at this time. The inflammatory markers are still elevated including D-dimer. Troponin 0.122. PAST MEDICAL HISTORY: Reviewed. REVIEW OF SYSTEM: CARDIOVASCULAR As mentioned earlier. RESPIRATORY As mentioned earlier. GI As mentioned earlier. No dysuria. NERVOUS SYSTEM No numbness or weakness. CURRENT MEDICATIONS: Reviewed include Tylenol, [place], DuoNeb, Xanax, aspirin. Doses reviewed. PHYSICAL EXAM: Patient is alert, oriented x2. Pulse 92, blood pressure 120/60, respirations 16, temperature 97.2, pulse ox 94% on room air. HEENT: Conjunctivae normal. Oral mucosa moist. NECK: No jugular venous distention. No lymph node enlargement. CARDIOVASCULAR: S1, S2, muffled. No S3, no S4, RESPIRATORY: Diminished breath sounds at the bases. Scattered rhonchi and crackles. ABDOMEN: Soft, nontender. LEGS: No edema, no swelling. NERVOUS SYSTEM: No focal motor or sensory deficits. LAB STUDIES: WBC 44.4, monocytes: 1.33. The procalcitonin is not available yet. COVID-19 is negative. ASSESSMENT: 1. Shortness of breath and weakness possibly secondary to multiple lung metastases and pulmonary malignancy. 2. Right apical and posterior right lower lobe lung masses with extensive enlargement of the multiple lymph nodes throughout the mediastinum and right hilar region. 3. Multiple hypodensities peripherally in the liver. 4. Limited deep venous thrombosis in the left lower leg. 5. Recent COVID-19 infection. 6. Troponin 0.10. Rule out acute kxj-CS-iwgajvt-elevation myocardial infarction. 7. Increased WBC. 8. Increased D-dimer without any evidence of acute pulmonary embolism. 9. Hyponatremia. 10.Hypercalcemia. 11.Increased alkaline phosphatase. 12.Tachycardia with PVCs. 13.History of asthma, chronic obstructive pulmonary disease. 14.Hypertension. 15.Hyperlipidemia. 16.History of myocardial infarction. 17.History of abdominal aortic aneurysm. 18.History of coronary artery disease, coronary artery bypass graft, stent. 19.Remote history of nicotine dependence. 20.Obesity with body mass index of 31.7. RECOMMENDATIONS: Recommend to continue current management and symptomatic treatment. The patient will require further workup to rule out the possibility of malignancy. Interventional Radiology biopsy is an option. Follow closely with multiple consultants. Overall prognosis is extremely guarded. The WBCs are also elevated. I would also recommend course of empiric antibiotics also. Cultures are being requested. The repeat labs will be ordered. Closely follow with multiple consultants. Guarded prognosis. Further recommendations to follow. Hematology/Oncology consultation is also pending. Venous Doppler was done which showed thrombus in calf and the left ankle level. Overall prognosis is extremely guarded because of multiple complex medical issues as suggested above and further recommendations to follow. MMODL / IJN: [id number] /
--- NOTE | 2020-10-03 15:41 | P.CNPUL ---
History of Present Illness Consult date: 10/03/20 Requesting physician: Dane Brannon Reason for consult: other (Abnormal CT of the chest) Chief complaint: Weakness and weight loss. History of present illness: This is a 70-year-old white male familiar to my service. with history of multiple medical problems including coronary artery disease and previous CABG and stent placement. History of abdominal aortic aneurysm and previous stent placement, history of hypertension, mild asymptomatic COPD, remote smoking history quit smoking over 20 years ago. Patient normally sees me on a regular basis in the office, and I saw this patient basically about a month ago. Patient was recovering from Covid 19 infection which she had in June, and d id not require any hospitalization. When I saw him about a month ago, follow-up chest x-ray was done in the office, and it was basically unremarkable. The chest x-ray was dated 09/03/2020, and it showed peripheral increased lung markings, chronic changes stable and it was compared to the chest x-ray that was done on 06/27/2020. On that specific chest x-ray, there was no suspicion of any findings to suggest malignancy. On 10/02/2020, patient was seen in the ER, and he had multiple constitutional symptoms including weakness, unable to ambulate, patient has been losing weight over the last month or so. A chest x-ray was done questioned some nodularity in the left lung, and after I reviewed the chest x-ray I recommended a CT angiogram of the chest. This came back quite abnormal showing extensive enlargement of lymph nodes throughout the mediastinum and right hilar region it also showed right apical and posterior right lower nodules. It also showed extensive multiple hypodense lesions within the liver compatible with metastasis. Patient had no previous history of malignancy. And over the years he declined having colonoscopy. Patient smoked until about 20 years ago, and he had family history of lung cancer./Father. Considering the findings on the CT of the chest and on the chest x-ray, I was asked to see this patient on consultation. Venous Doppler on this admission showed limited deep vein thromboses in the left lower extremity. CT of the abdomen and pelvis showed mostly numerous liver lesions suggestive of metastatic disease. Review of Systems CONSTITUTIONAL: Chronic weakness, fatigue, and weight loss. HEENT: Denies blurred vision, vision changes, or eye pain. Denies hemoptysis SKIN: Denies pruitis. Denies rash. Psychiatric: Denies any symptoms of depression. Hematologic: Denies any clotting bleeding or bruising Neurologic: Denies any headache blurred vision or dizziness. Skin: Denies any rashes. Genitourinary: Denies any dysuria hematuria or frequency or urgency. GI: Denies any nausea vomiting abdominal pain melena or hematemesis. Pulmonary: Denies any significant shortness of breath cough or wheezing. Cardiovascular denies chest pain or orthopnea PND. Past Medical History Past Medical History: Asthma, COPD, Hyperlipidemia, Hypertension, Myocardial Infarction ([place]) Additional Past Medical History / Comment(s): AAA Last Myocardial Infarction Date:: 12/25/2006 History of Any Multi-Drug Resistant Organisms: None Reported Past Surgical History: Coronary Bypass/CABG, Heart Catheterization With Stent Additional Past Surgical History / Comment(s): carotid stent Past Anesthesia/Blood Transfusion Reactions: No Reported Reaction Date of Last Stent Placement:: 12/2006 Past Psychological History: No Psychological Hx Reported Smoking Status: Former smoker Past Alcohol Use History: None Reported, Daily Past Drug Use History: None Reported Medications and Allergies Home Medications Medication Instructions Recorded Confirmed Type Acetaminophen [Tylenol] 650 mg PO Q4H PRN 02/19/14 10/02/20 History Acetaminophen/Diphenhydramine 1 tab PO HS 02/19/14 10/02/20 History [Tylenol Pm] Nitroglycerin Sl Tabs [Nitrostat] 0.4 mg SUBLINGUAL Q5M PRN 02/19/14 10/02/20 History Vitamin B Complex 1 cap PO DAILY 02/19/14 10/02/20 History Metoprolol Tartrate [Lopressor] 25 mg PO BID 05/18/16 10/02/20 History Otc Prostate Supplement 1 tab PO TID 05/18/16 10/02/20 History Simvastatin [Zocor] 20 mg PO HS 05/18/16 10/02/20 History Apixaban [Eliquis] 5 mg PO BID 10/02/20 10/02/20 History Aspirin EC [Ecotrin Low Dose] 81 mg PO W/SUPPER 10/02/20 10/02/20 History Ergocalciferol (Vitamin D2) 50 mcg PO DAILY 10/02/20 10/02/20 History [Vitamin D2 (2000 Iu)] L.acidoph,Paracasei, B.lactis 1 cap PO DAILY 10/02/20 10/02/20 History [Probiotic] Magnesium Unknown Dose 2 tab PO W/SUPPER 10/02/20 10/02/20 History Allergies Allergy/AdvReac Type Severity Reaction Status Date / Time No Known Allergies Allergy Verified 10/02/20 10:55 Physical Exam Vitals: Vital Signs Temp Pulse Pulse Resp BP BP Pulse Ox 10/03/20 12:45 76 10/03/20 12:36 76 10/03/20 12:00 97.6 F 92 16 124/63 95 10/03/20 09:53 97.9 F 105 H 20 142/74 94 L 10/03/20 09:12 80 10/03/20 09:04 86 10/03/20 04:00 97 18 125/80 97 10/03/20 01:03 108 H 18 10/02/20 22:07 97.6 F 108 H 18 121/68 96 10/02/20 22:00 108 H 18 10/02/20 20:43 97.4 F L 115 H 18 135/79 97 10/02/20 18:13 102 H 18 109/66 99 Intake and Output 10/03/20 10/03/20 10/03/20 06:59 14:59 22:59 Intake Total 450 660.215 Output Total 150 Balance 450 510.215 Intake: Intake, IV Titration 120.215 Amount Heparin Sod,Pork in 0.45% 120.215 NaCl 25,000 unit In 0.45 % NaCl 1 250ml.bag @ 9.19 UNITS/KG/HR 10.004 mls/ hr IV .Q24H [facility] Rx#: [id number] Oral 450 540 Output: Urine 150 Other: Weight 103 kg Physical Exam: Revealed 70-year-old white male, pleasant, in no distress. Head: Atraumatic, normocephalic. HEENT:[Neck is supple.] [No neck masses.] [No thyromegaly.] [No JVD.] Chest: [Clear throughout, no crackles, no rhonchi, no wheezes.] Cardiac Exam: [Normal S1 and S2, no S3 gallop, no murmur.] Abdomen: [Soft, nontender, no megaly, no rebound, no guarding, normal bowel sounds.] Extremities: [No clubbing, no edema, no cyanosis.] Neurological Exam: [No focal neurologic deficit.] Alert and oriented 3. Psychiatric: Normal mood affect and normal mental status examination. Skin: No rashes. Results - Laboratory Findings CBC and BMP: 10/03/20 09:09 10/03/20 09:09 PT/INR, D-dimer PT 11.8 sec (9.0-12.0) 10/02/20 10:09 INR 1.1 (<1.2) 10/02/20 10:09 D-Dimer 13.97 mg/L FEU (<0.60) H 10/02/20 10:09 Abnormal lab findings: Abnormal Labs 10/02/20 10/02/20 10/02/20 10:09 10:09 10:09 WBC 39.2 H RBC 4.17 L Neutrophils # (Manual) 35.20 H Lymphocytes # (Manual) 0.78 L Monocytes # (Manual) 2.74 H Metamyelocytes # (Man) Myelocytes # (Manual) ESR APTT D-Dimer Sodium 136 L Glucose 118 H Calcium 12.4 H Ferritin Alkaline Phosphatase 301 H Lactate Dehydrogenase Troponin I 0.109 H* C-Reactive Protein Total Protein Albumin 3.3 L Triglycerides HDL Cholesterol Urine Protein 10/02/20 10/02/20 10/02/20 10:09 12:32 13:31 WBC RBC Neutrophils # (Manual) Lymphocytes # (Manual) Monocytes # (Manual) Metamyelocytes # (Man) Myelocytes # (Manual) ESR APTT D-Dimer 13.97 H Sodium Glucose Calcium Ferritin Alkaline Phosphatase Lactate Dehydrogenase Troponin I 0.115 H* C-Reactive Protein Total Protein Albumin Triglycerides HDL Cholesterol Urine Protein Trace H 10/02/20 10/02/20 10/02/20 17:05 18:06 18:06 WBC RBC Neutrophils # (Manual) Lymphocytes # (Manual) Monocytes # (Manual) Metamyelocytes # (Man) Myelocytes # (Manual) ESR 62 H APTT D-Dimer Sodium 135 L Glucose 101 H Calcium 11.9 H Ferritin 1700.3 H Alkaline Phosphatase 280 H Lactate Dehydrogenase 1127 H Troponin I 0.122 H* C-Reactive Protein 263.5 H Total Protein 6.2 L Albumin 3.2 L Triglycerides HDL Cholesterol Urine Protein 10/03/20 10/03/20 10/03/20 09:09 09:09 09:09 WBC 44.4 H RBC 4.10 L Neutrophils # (Manual) 40.40 H Lymphocytes # (Manual) Monocytes # (Manual) 1.33 H Metamyelocytes # (Man) 0.44 H Myelocytes # (Manual) 0.44 H ESR APTT 36.8 H D-Dimer Sodium Glucose Calcium Ferritin Alkaline Phosphatase Lactate Dehydrogenase Troponin I C-Reactive Protein Total Protein Albumin Triglycerides 150 H HDL Cholesterol 36 L Urine Protein 10/03/20 09:09 WBC RBC Neutrophils # (Manual) Lymphocytes # (Manual) Monocytes # (Manual) Metamyelocytes # (Man) Myelocytes # (Manual) ESR APTT D-Dimer Sodium Glucose 110 H Calcium 12.6 H Ferritin Alkaline Phosphatase 300 H Lactate Dehydrogenase Troponin I C-Reactive Protein Total Protein Albumin 3.2 L Triglycerides HDL Cholesterol Urine Protein - Diagnostic Findings Chest x-ray: image reviewed (As noted in HPI.) CT scan - chest: image reviewed Assessment and Plan Assessment: Impression: Multiple constitutional symptoms mostly likely secondary to metastatic disease, strongly suspect small cell lung cancer, however other primary sources of ma lignancy would have to be considered. 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 Limited the vein thromboses in the left lower extremity. History of covid 19 infection in June. History of COPD. Ex-smoker. History of coronary artery disease and previous CABG and stent. History of abdominal aortic aneurysm. History of cardiac arrest in my office requiring brief CPR. Elevated sed rate most likely secondary to malignancy. Hypercalcemia most likely secondary to underlying malignancy. Recommendation: Continue present supportive care measures. Resume home meds. We will arrange for ultrasound or CT-guided needle biopsy of the liver lesions however if nondiagnostic, we'll consider bronchoscopy and trans-carinal biopsy. Continue anticoagulation therapy with heparin and could hold the heparin hours before the liver biopsy. Hydration and correct hypercalcemia. May consider steroids. Had a long discussion with the patient regarding his differential diagnoses, and we'll continue to follow Prognosis is definitely guarded. Time with Patient: Greater than 30
[2020-10-03] MEDS: methylPREDNISolone SOD SUCCI 40 MG/ML 1 ML VIAL IV SCH ×2 (16:31→23:59)
[2020-10-03] MEDS: SODIUM CHLORIDE 0.9% 1,000 ML IV SCH ×2 (16:32→21:22)
[2020-10-03] MEDS: NON FORMULARY DRUG (Vitamin B Complex [Vitamin B Complex] 1 EACH Capsule) PO SCH (18:59)
--- NOTE | 2020-10-03 21:06 | P.CONS ---
History of Present Illness - Reason for Consult Consult date: 10/03/20 Malignancy Requesting physician: Dane Brannon - Chief Complaint Fatigue - History of Present Illness Mr. Guan is a 70 year old male patient who was recovering from COVID infection and just not feeling well. He presented to emergency and CT Chest revealed multiple liver lesions concerning for a metastatic presentation. There was also a 3cm mass Lower lobe right lung identified. Calcium is 12.6, LDH increased, WBC increased, ALk phos increased. Review of Systems All systems: negative Constitutional: Reports as per HPI Past Medical History Past Medical History: Asthma, COPD, Hyperlipidemia, Hypertension, Myocardial Infarction ([place]) Additional Past Medical History / Comment(s): AAA Last Myocardial Infarction Date:: 12/25/2006 History of Any Multi-Drug Resistant Organisms: None Reported Past Surgical History: Coronary Bypass/CABG, Heart Catheterization With Stent Additional Past Surgical History / Comment(s): carotid stent Past Anesthesia/Blood Transfusion Reactions: No Reported Reaction Date of Last Stent Placement:: 12/2006 Past Psychological History: No Psychological Hx Reported Smoking Status: Former smoker Past Alcohol Use History: None Reported, Daily Past Drug Use History: None Reported Medications and Allergies Home Medications Medication Instructions Recorded Confirmed Type Acetaminophen [Tylenol] 650 mg PO Q4H PRN 02/19/14 10/02/20 History Acetaminophen/Diphenhydramine 1 tab PO HS 02/19/14 10/02/20 History [Tylenol Pm] Nitroglycerin Sl Tabs [Nitrostat] 0.4 mg SUBLINGUAL Q5M PRN 02/19/14 10/02/20 History Vitamin B Complex 1 cap PO DAILY 02/19/14 10/02/20 History Metoprolol Tartrate [Lopressor] 25 mg PO BID 05/18/16 10/02/20 History Otc Prostate Supplement 1 tab PO TID 05/18/16 10/02/20 History Simvastatin [Zocor] 20 mg PO HS 05/18/16 10/02/20 History Apixaban [Eliquis] 5 mg PO BID 10/02/20 10/02/20 History Aspirin EC [Ecotrin Low Dose] 81 mg PO W/SUPPER 10/02/20 10/02/20 History Ergocalciferol (Vitamin D2) 50 mcg PO DAILY 10/02/20 10/02/20 History [Vitamin D2 (2000 Iu)] L.acidoph,Paracasei, B.lactis 1 cap PO DAILY 10/02/20 10/02/20 History [Probiotic] Magnesium Unknown Dose 2 tab PO W/SUPPER 10/02/20 10/02/20 History Allergies Allergy/AdvReac Type Severity Reaction Status Date / Time No Known Allergies Allergy Verified 10/02/20 10:55 Physical Exam Vitals: Vital Signs Temp Pulse Pulse Resp BP BP Pulse Ox 10/03/20 12:45 76 10/03/20 12:36 76 10/03/20 12:00 97.6 F 92 16 124/63 95 10/03/20 09:53 97.9 F 105 H 20 142/74 94 L 10/03/20 09:12 80 10/03/20 09:04 86 10/03/20 04:00 97 18 125/80 97 10/03/20 01:03 108 H 18 10/02/20 22:07 97.6 F 108 H 18 121/68 96 10/02/20 22:00 108 H 18 10/02/20 20:43 97.4 F L 115 H 18 135/79 97 10/02/20 18:13 102 H 18 109/66 99 Intake and Output 10/02/20 10/03/20 10/03/20 22:59 06:59 14:59 Intake Total 660 450 660.215 Output Total 100 Balance 560 450 660.215 Intake: Intake, IV Titration 120.215 Amount Heparin Sod,Pork in 0.45% 120.215 NaCl 25,000 unit In 0.45 % NaCl 1 250ml.bag @ 9.19 UNITS/KG/HR 10.004 mls/ hr IV .Q24H [facility] Rx#: [id number] Oral 660 450 540 Output: Urine 100 Other: # Voids 1 Weight 108.862 kg 103 kg - Constitutional General appearance: cooperative, no acute distress - EENT Eyes: EOMI, PERRLA ENT: hard of hearing, NA/AT - Neck Neck: normal ROM - Respiratory Respiratory: bilateral: diminished - Cardiovascular Rhythm: regularly irregular - Gastrointestinal General gastrointestinal: soft, tenderness - Integumentary Integumentary: pale - Neurologic Neurologic: CNII-XII intact - Musculoskeletal Musculoskeletal: generalized weakness - Psychiatric Psychiatric: A&O x's 3 Results CBC & Chem 7: 10/03/20 09:09 10/03/20 09:09 Labs: Abnormal Lab Results - Last 24 Hours (Table) 10/02/20 10/02/20 10/02/20 Range/Units 10:09 13:31 17:05 WBC (3.8-10.6) k/uL RBC (4.30-5.90) m/uL ESR (0-15) mm/hr APTT (22.0-30.0) sec D-Dimer 13.97 H (<0.60) mg/L FEU Sodium (137-145) mmol/L Glucose (74-99) mg/dL Calcium (8.4-10.2) mg/dL Ferritin (22.0-322.0) ng/mL Alkaline Phosphatase (38-126) U/L Lactate Dehydrogenase (313-618) U/L Troponin I 0.115 H* 0.122 H* (0.000-0.034) ng/mL C-Reactive Protein (<10.0) mg/L Total Protein (6.3-8.2) g/dL Albumin (3.5-5.0) g/dL Triglycerides (<150) mg/dL HDL Cholesterol (40-60) mg/dL 10/02/20 10/02/20 10/03/20 Range/Units 18:06 18:06 09:09 WBC 44.4 H (3.8-10.6) k/uL RBC 4.10 L (4.30-5.90) m/uL ESR 62 H (0-15) mm/hr APTT (22.0-30.0) sec D-Dimer (<0.60) mg/L FEU Sodium 135 L (137-145) mmol/L Glucose 101 H (74-99) mg/dL Calcium 11.9 H (8.4-10.2) mg/dL Ferritin 1700.3 H (22.0-322.0) ng/mL Alkaline Phosphatase 280 H (38-126) U/L Lactate Dehydrogenase 1127 H (313-618) U/L Troponin I (0.000-0.034) ng/mL C-Reactive Protein 263.5 H (<10.0) mg/L Total Protein 6.2 L (6.3-8.2) g/dL Albumin 3.2 L (3.5-5.0) g/dL Triglycerides (<150) mg/dL HDL Cholesterol (40-60) mg/dL 10/03/20 10/03/20 Range/Units 09:09 09:09 WBC (3.8-10.6) k/uL RBC (4.30-5.90) m/uL ESR (0-15) mm/hr APTT 36.8 H (22.0-30.0) sec D-Dimer (<0.60) mg/L FEU Sodium (137-145) mmol/L Glucose (74-99) mg/dL Calcium (8.4-10.2) mg/dL Ferritin (22.0-322.0) ng/mL Alkaline Phosphatase (38-126) U/L Lactate Dehydrogenase (313-618) U/L Troponin I (0.000-0.034) ng/mL C-Reactive Protein (<10.0) mg/L Total Protein (6.3-8.2) g/dL Albumin (3.5-5.0) g/dL Triglycerides 150 H (<150) mg/dL HDL Cholesterol 36 L (40-60) mg/dL CT scan - abdomen: report reviewed CT scan - chest: report reviewed CT Scan - head: report reviewed CT scan - pelvis: report reviewed Venous US: report reviewed Assessment and Plan Plan: Assessment and Recommendations: Leukocytosis: - Reactive Hypercalcemia: - Ionized, Uric, Phos, Mag, PTH - POssibly related to tumor burden versus further disease Liver Masses: - Biopsy IR ordered - Await path Pulmonary Nodules: RLL - Extensive adenopathy Hilar and Mediastinal
[2020-10-03] MEDS: ATORVASTATIN 10 MG TAB PO SCH (21:18)
[2020-10-03 22:26] LABS: Magnesium 2.1 mg/dL (1.6-2.3); Phosphorus 3.4 mg/dL (2.5-4.5); Uric Acid 7.6 mg/dL (3.5-8.5)
[2020-10-03 23:02] LABS: Ionized Calcium 6.7 mg/dL (4.5-5.3)
[2020-10-04] MEDS: SODIUM CHLORIDE 0.9% 1,000 ML IV SCH ×3 (07:08→18:30)
[2020-10-04 08:17] LABS: ALT 26 U/L (4-49); AST 36 U/L (17-59); African American GFR (CKD) >90 (>60 ml/min/1.73 sqM); Albumin 2.8 g/dL (3.5-5.0); Alkaline Phosphatase 273 U/L (38-126); Anion Gap 5 mmol/L; Blood Urea Nitrogen 18 mg/dL (9-20); Calcium 11.2 mg/dL (8.4-10.2); Carbon Dioxide 25 mmol/L (22-30); Chloride 107 mmol/L (98-107); Glucose 140 mg/dL (74-99); Magnesium 2.1 mg/dL (1.6-2.3); Non-African American GFR(CKD) >90 (>60 ml/min/1.73 sqM); Phosphorus 3.7 mg/dL (2.5-4.5); Potassium 4.2 mmol/L (3.5-5.1); Sodium 137 mmol/L (137-145); Total Bilirubin 0.4 mg/dL (0.2-1.3); Total Protein 5.9 g/dL (6.3-8.2)
[2020-10-04] MEDS: PANTOPRAZOLE 40 MG/10 ML VIAL IVP SCH (08:23)
[2020-10-04] MEDS: methylPREDNISolone SOD SUCCI 40 MG/ML 1 ML VIAL IV SCH ×3 (08:23→23:43)
[2020-10-04] MEDS: ERGOCALCIFEROL 1,250 MCG (50,000 IU) CAPSULE PO SCH (08:23)
[2020-10-04] MEDS: METOPROLOL TARTRATE 25 MG TAB PO SCH ×2 (08:24→20:19)
[2020-10-04] MEDS: AZITHROMYCIN 500 MG in SODIUM CHLORIDE 0.9% 250 ML IVPB SCH (08:24)
[2020-10-04] MEDS: LACTOBACILLUS ACIDOPH & BULGAR 1 EACH PACKET PO SCH (08:24)
[2020-10-04] MEDS: ASPIRIN 81 MG PO SCH (08:24)
[2020-10-04 08:28] LABS: HCT 38.4 % (39.0-53.0); HGB 12.1 gm/dL (13.0-17.5); MCH 31.6 pg (25.0-35.0); MCHC 31.6 g/dL (31.0-37.0); MCV 99.9 fL (80.0-100.0); Mean Platelet Volume 8.2; Platelet Count 267 k/uL (150-450); RBC 3.84 m/uL (4.30-5.90); RDW 13.9 % (11.5-15.5)
[2020-10-04] MEDS: HYDROmorphone 0.5 MG/0.5 ML SYRINGE IVP PRN ×2 (08:29→20:21)
[2020-10-04 08:36] LABS: WBC 48.2 k/uL (3.8-10.6)
[2020-10-04] MEDS: IPRATROPIUM-ALBUTEROL 3 ML NEB INHALATION SCH ×3 (08:55→19:49)
[2020-10-04] MEDS: NON FORMULARY DRUG (Vitamin B Complex [Vitamin B Complex] 1 EACH Capsule) PO SCH (10:09)
--- NOTE | 2020-10-04 11:39 | P.PN ---
Subjective Progress Note Date: 10/04/20 HISTORY OF PRESENT ILLNESS: 10/03/2020 This is a 70-year-old male with a past medical history significant for COPD, hypertension, hyperlipidemia, AAA, coronary artery disease with previous CABG and stenting, and former nicotine dependence. Patient follows in the office with Dr. Esteves. We have been asked to see the patient in consultation for elevated troponins. Patient examined at the bedside. Patient presented to the hospital secondary to increasing fatigue. Patient states him and his both had Covid in June 2020. He reports that she improved and got better but he states he has not. He reports extreme weakness and states his has been helping to take care of him at home. The patient currently denies any chest pain or pressure. He does report shortness of breath with exertion. He states he used to smoke 2 packs per day and quit in 2014. EKG reveals sinus mechanism with no signs of acute ischemia Chest xray patchy changes continuing the periphery of the right upper to mid lung and may be part and chronic. Subtle infiltrate difficult excluded. Under lying COPD. Chest CTA: Negative for pulmonary embolism. A right apical and posterior right lower lung mass. Abdomen CT and pelvis: Numerous liver lesions suggestive of metastatic disease. Laboratory data: WBC 44.4. Hemoglobin 13.6. Platelet count 262. Sodium 135. Potassium 4.4. BUN 17. Creatinine 0.76. Troponin 0.109. 0.115. 0.122. Current home cardiac medications include simvastatin 20 mg daily, metoprolol tartrate 25 mg twice a day, aspirin 81 mg daily, Eliquis 5 mg twice a day Most recent echocardiogram obtained reveals ejection fraction 50-55%. Basal inferior LV wall hypokinesis 10/04/2020 Patient examined this morning at the bedside. Patient denies chest pain or pressure. He reports minimal shortness of breath. He continues to feel weak. He remains on IV heparin. Blood pressure 122/59. Heart rate in the 80s. PHYSICAL EXAM: VITAL SIGNS: Reviewed. GENERAL: Well-developed in no acute distress. HEENT: Head is normocephalic. Pupils are equal, round. Sclerae anicteric. Mucous membranes of the mouth are moist. Neck supple. No JVD or thyromegaly LUNGS: Respirations even and unlabored. Lungs diminished bilaterally. HEART: Regular rate and rhythm. S1 and S2 heard. Soft systolic murmur noted. ABDOMEN: Soft. Nondistended. Nontender. EXTREMITIES: Normal range of motion. No clubbing or cyanosis. Peripheral pulses intact. No lower extremity edema NEUROLOGIC: Awake and alert. Oriented x 3. ASSESSMENT: Generalized weakness Right apical and posterior right lower lobe lung mass, per CTA Numerous liver lesions, suggestive of metastatic disease per CT History of CovidJune 2020 Abnormal troponins, not indicative of myocardial injury Coronary artery disease with previous stenting and CABG 2011 Paroxysmal atrial fibrillation, on anticoagulation with Eliquis History of AAA, status post endovascular repair Hypertension Hyperlipidemia History of nicotine dependence, patient smoked 2 packs per day and quit in 2014 PLAN: Continue current cardiac medications Continue telemetry monitoring Patient scheduled for liver biopsy tomorrow. Continue IV heparin. May transition back to [facility] after biopsy is completed if okay with pulmonary. Further recommendations pending patient's course Nurse practitioner note has been reviewed by physician. Signing provider agrees with the documented findings, assessment, and plan of care. Objective - Vital Signs Vital signs: Vital Signs Temp 97 F L 10/04/20 11:30 Pulse 82 10/04/20 11:30 Resp 20 10/04/20 11:30 BP 122/59 10/04/20 11:30 Pulse Ox 94 L 10/04/20 11:30 Intake & Output 10/03/20 10/04/20 10/04/20 18:59 06:59 18:59 Intake Total 999.498 8486.014 115 Output Total 150 200 Balance 979.853 6479.014 115 Weight 104 kg Intake: Intake, IV Titration 142.292 3544.014 Amount Heparin Sod,Pork in 0.45% 120.215 108.014 NaCl 25,000 unit In 0.45 % NaCl 1 250ml.bag @ 9.19 UNITS/KG/HR 10.004 mls/ hr IV .Q24H [facility] Rx#: [id number] Sodium Chloride 0.9% 1, 1500 000 ml @ 150 mls/hr IV . Q6H40M [facility] Rx#:[id number] Oral 780 115 Output: Urine 150 200 Other: # Voids 1 - Labs CBC & Chem 7: 10/04/20 07:18 10/04/20 07:18 Labs: Abnormal Lab Results - Last 24 Hours (Table) 10/03/20 10/03/20 10/03/20 Range/Units 09:09 09:09 09:09 RBC (4.30-5.90) m/uL Hgb (13.0-17.5) gm/dL Hct (39.0-53.0) % Neutrophils # (Manual) 40.40 H (1.3-7.7) k/uL Monocytes # (Manual) 1.33 H (0-1.0) k/uL Metamyelocytes # (Man) 0.44 H (0) k/uL Myelocytes # (Manual) 0.44 H (0) k/uL APTT (22.0-30.0) sec Glucose 110 H (74-99) mg/dL Calcium 12.6 H (8.4-10.2) mg/dL Ionized Calcium Derick (4.5-5.3) mg/dL Alkaline Phosphatase 300 H (38-126) U/L Total Protein (6.3-8.2) g/dL Albumin 3.2 L (3.5-5.0) g/dL Vitamin D 25-Hydroxy (30.0-100.0) ng/mL Procalcitonin 0.55 H (0.02-0.09) ng/mL 10/03/20 10/03/20 10/04/20 Range/Units 18:22 21:59 07:18 RBC 3.84 L (4.30-5.90) m/uL Hgb 12.1 L (13.0-17.5) gm/dL Hct 38.4 L (39.0-53.0) % Neutrophils # (Manual) (1.3-7.7) k/uL Monocytes # (Manual) (0-1.0) k/uL Metamyelocytes # (Man) (0) k/uL Myelocytes # (Manual) (0) k/uL APTT 49.2 H (22.0-30.0) sec Glucose (74-99) mg/dL Calcium (8.4-10.2) mg/dL Ionized Calcium Derick 6.7 H* (4.5-5.3) mg/dL Alkaline Phosphatase (38-126) U/L Total Protein (6.3-8.2) g/dL Albumin (3.5-5.0) g/dL Vitamin D 25-Hydroxy 121.7 H (30.0-100.0) ng/mL Procalcitonin (0.02-0.09) ng/mL 10/04/20 10/04/20 Range/Units 07:18 07:18 RBC (4.30-5.90) m/uL Hgb (13.0-17.5) gm/dL Hct (39.0-53.0) % Neutrophils # (Manual) (1.3-7.7) k/uL Monocytes # (Manual) (0-1.0) k/uL Metamyelocytes # (Man) (0) k/uL Myelocytes # (Manual) (0) k/uL APTT 53.9 H (22.0-30.0) sec Glucose 140 H (74-99) mg/dL Calcium 11.2 H (8.4-10.2) mg/dL Ionized Calcium Derick (4.5-5.3) mg/dL Alkaline Phosphatase 273 H (38-126) U/L Total Protein 5.9 L (6.3-8.2) g/dL Albumin 2.8 L (3.5-5.0) g/dL Vitamin D 25-Hydroxy (30.0-100.0) ng/mL Procalcitonin (0.02-0.09) ng/mL Microbiology - Last 24 Hours (Table) 10/03/20 17:05 Gram Stain - Preliminary Sputum Sputum Culture - Preliminary 10/02/20 18:06 Blood Culture - Preliminary Blood No Growth after 24 hours
[2020-10-04 12:06] LABS: Band Neutrophils % 4 %; Lymphocytes # (M) 2.41 k/uL (1.0-4.8); Monocytes # (M) 0.96 k/uL (0-1.0); Myelocytes # (M) 0.48 k/uL (0); Myelocytes % 1 %; Neutrophils % (M) 90 %; Nucleated Red Blood Cells 0 /100 WBC (0-0); Total Cells Counted 200
--- NOTE | 2020-10-04 15:53 | PN ---
PROGRESS NOTE DATE OF SERVICE: 10/04/2020 This 70-year-old gentleman with a prolonged Covid 19 infection, has shortness of breath, thought to be multifactorial possibly secondary to pulmonary malignancy. The possibility of pneumonia is also a possibility with early sepsis. Patient started on broad spectrum IV antibiotics. Liver biopsy is being planned tomorrow. Multiple consultants are following the patient closely. The patient has complained of generalized weakness and tiredness. The patient has significant difficulties even getting to the bedside commode. Patient was sick for the last several months, according to the family. Dr. Ty and multiple consultants are following the patient closely. PAST MEDICAL HISTORY: Reviewed. REVIEW OF SYSTEMS: CARDIOVASCULAR SYSTEM: No angina or palpitations. RESPIRATION as mentioned earlier. GI: As mentioned earlier. : As mentioned earlier. Nervous system: Mild diffuse weakness. CURRENT MEDICATIONS: Reviewed and include: Tylenol. [place]. DuoNeb, Xanax, aspirin, Zithromax, doses and other medications reviewed. PHYSICAL EXAM: Patient is alert, oriented x3. Pulse is 82, blood pressure 122/59, respiration 20, temperature 97 degrees, pulse ox 94% on 2 L. HEENT: Conjunctivae normal. NECK: No JVD. CARDIOVASCULAR: S1, S2 muffled. RESPIRATIONS: Breath sounds diminished in the bases. A few scattered rhonchi. ABDOMEN: Soft, nontender. LEGS: No edema. No swelling. NERVOUS SYSTEM: Diffusely weak. LAB STUDIES: WBC 14.8, hemoglobin 12.1 and APTT 53.9 and calcium is 11.2 and ionized calcium 6.7, and the procalcitonin 0.52. Vitamin D is high. Intact PTH is low. ASSESSMENT: 1. Shortness of breath and weakness, possibly secondary to multiple lung metastasis and pulmonary malignancy. 2. Right apical posterior right lower lobe masses with extensive enlargement of the mediastinal lymph nodes and the right hilar region. 3. Possible pneumonia with early sepsis, present on admission. 4. Mild hypodensities in the periphery in the liver. 5. Limited DVT of the left lower leg. 6. Recent Covid 19 infection. 7. Gait dysfunction. 8. Troponin 0.10, rule out acute gzg-EL-hslbrio-elevation myocardial infarction. 9. Increased WBC. 10.Increased D-dimer without any evidence of acute pulmonary embolism. 11.Hyponatremia. 12.Hypercalcemia. 13.Increased alkaline phosphatase. 14.Tachycardia with PVCs. 15.History of asthma, chronic obstructive pulmonary disease. 16.Hypertension. 17.Hyperlipidemia. 18.History of myocardial infarction. 19.History of abdominal aortic aneurysm. 20.History of coronary artery disease, coronary artery bypass grafting/stent. 21.Remote history of nicotine dependence. 22.Obesity with body mass index of 31.7. RECOMMENDATIONS AND DISCUSSION: Recommend to continue current medications, monitor and symptomatic treatment. Otherwise, at this time, I recommend continue the broad-spectrum IV antibiotics. Continue the rest of the medications and follow closely with multiple consultants. PT/OT evaluation, possible ECF rehab and I would also recommend intervention radiology consultation. Guarded prognosis. Discussed with the patient's at length. Further recommendations to follow. MMNIRALIL / IJN: [id number] /
--- NOTE | 2020-10-04 15:59 | P.PN ---
Subjective Progress Note Date: 10/04/20 Principal diagnosis: Suspect metastatic disease This is a 70-year-old white male familiar to my service. with history of multiple medical problems including coronary artery disease and previous CABG and stent placement. History of abdominal aortic aneurysm and previous stent p lacement, history of hypertension, mild asymptomatic COPD, remote smoking history quit smoking over 20 years ago. Patient normally sees me on a regular basis in the office, and I saw this patient basically about a month ago. Patient was recovering from Covid 19 infection which she had in June, and did not require any hospitalization. When I saw him about a month ago, follow- up chest x-ray was done in the office, and it was basically unremarkable. The chest x-ray was dated 09/03/2020, and it showed peripheral increased lung markings, chronic changes stable and it was compared to the chest x-ray that was done on 06/27/2020. On that specific chest x-ray, there was no suspicion of any findings to suggest malignancy. On 10/02/2020, patient was seen in the ER, and he had multiple constitutional symptoms including weakness, unable to ambulate, patient has been losing weight over the last month or so. A chest x-ray was done questioned some nodularity in the left lung, and after I reviewed the chest x-ray I recommended a CT angiogram of the chest. This came back quite abnormal showing extensive enlargement of lymph nodes throughout the mediastinum and right hilar region it also showed right apical and posterior right lower nodules. It also showed extensive multiple hypodense lesions within the liver compatible with metastasis. Patient had no previous history of malignancy. And over the years he declined having colonoscopy. Patient smoked until about 20 years ago, and he had family history of lung cancer./Father. Considering the findings on the CT of the chest and on the chest x-ray, I was asked to see this patient on consultation. Venous Doppler on this admission showed limited deep vein thromboses in the left lower extremity. CT of the abdomen and pelvis showed mostly numerous liver lesions suggestive of metastatic disease. Reevaluated today on 10/04/2020, patient continues to feel weakness. Denies any cough, no fever, no chills, no hemoptysis. Continues to have leukocytosis with WBC count of 48.2 hemoglobin is 12.1. Remains on heparin for his deep vein t hrombosis, calcium is down to 11.2 from 12.6 yesterday. Ionized calcium yesterday was 6.7. Pro-calcitonin is 0.55, patient remains empirically on antibiotics in the form of Rocephin and Zithromax. Blood cultures and sputum cultures are negative so far since admission. Patient is supposedly scheduled to have CT guided liver biopsy or ultrasound guided liver biopsy tomorrow however he is on heparin and that has to be put on hold for 2 hours prior to the procedure. today is at bedside, and I discussed his condition with the at bedside. And explained to her that we are working him up for possible metastatic disease. Primary remains unknown, but I'm suspecting that we may be dealing with small cell lung cancer. Objective - Vital Signs Vital signs: Vital Signs Temp 97 F L 10/04/20 11:30 Pulse 88 10/04/20 12:12 Resp 20 10/04/20 11:30 BP 122/59 10/04/20 11:30 Pulse Ox 94 L 10/04/20 11:30 Intake & Output 10/03/20 10/04/20 10/04/20 18:59 06:59 18:59 Intake Total 481.303 7338.014 1265 Output Total 150 200 Balance 208.743 2342.014 1265 Weight 104 kg Intake: Intake, IV Titration 475.823 2636.014 800 Amount Azithromycin 500 mg In 250 Sodium Chloride 0.9% 250 ml @ 250 mls/hr IVPB DAILY [facility] Rx#:[id number] Heparin Sod,Pork in 0.45% 120.215 108.014 NaCl 25,000 unit In 0.45 % NaCl 1 250ml.bag @ 9.19 UNITS/KG/HR 10.004 mls/ hr IV .Q24H [facility] Rx#: [id number] Sodium Chloride 0.9% 1, 1500 500 000 ml @ 150 mls/hr IV . Q6H40M [facility] Rx#:[id number] cefTRIAXone 1 gm In 50 Sodium Chloride 0.9% 50 ml @ 100 mls/hr IVPB Q24HR [facility] Rx#:[id number] Oral 780 465 Output: Urine 150 200 Other: # Voids 1 1 - Exam Physical Exam: Revealed 70-year-old white male, pleasant, in no distress. Head: Atraumatic, normocephalic. HEENT:[Neck is supple.] [No neck masses.] [No thyromegaly.] [No JVD.] Chest: [Clear throughout, no crackles, no rhonchi, no wheezes.] Cardiac Exam: [Normal S1 and S2, no S3 gallop, no murmur.] Abdomen: [Soft, nontender, no megaly, no rebound, no guarding, normal bowel sounds.] Extremities: [No clubbing, no edema, no cyanosis.] Neurological Exam: [No focal neurologic deficit.] Alert and oriented 3. Psychiatric: Normal mood affect and normal mental status examination. Skin: No rashes. - Labs CBC & Chem 7: 10/04/20 07:18 10/04/20 07:18 Labs: Abnormal Lab Results - Last 24 Hours (Table) 10/03/20 10/03/20 10/03/20 Range/Units 09:09 18:22 21:59 WBC (3.8-10.6) k/uL RBC (4.30-5.90) m/uL Hgb (13.0-17.5) gm/dL Hct (39.0-53.0) % Neutrophils # (Manual) (1.3-7.7) k/uL Myelocytes # (Manual) (0) k/uL APTT 49.2 H (22.0-30.0) sec Glucose (74-99) mg/dL Calcium (8.4-10.2) mg/dL Ionized Calcium Derick 6.7 H* (4.5-5.3) mg/dL Alkaline Phosphatase (38-126) U/L Total Protein (6.3-8.2) g/dL Albumin (3.5-5.0) g/dL Vitamin D 25-Hydroxy 121.7 H (30.0-100.0) ng/mL Procalcitonin 0.55 H (0.02-0.09) ng/mL PTH Intact (14.0-72.0) pg/mL 10/04/20 10/04/20 10/04/20 Range/Units 07:18 07:18 07:18 WBC 48.2 H (3.8-10.6) k/uL RBC 3.84 L (4.30-5.90) m/uL Hgb 12.1 L (13.0-17.5) gm/dL Hct 38.4 L (39.0-53.0) % Neutrophils # (Manual) 45.30 H (1.3-7.7) k/uL Myelocytes # (Manual) 0.48 H (0) k/uL APTT (22.0-30.0) sec Glucose 140 H (74-99) mg/dL Calcium 11.2 H (8.4-10.2) mg/dL Ionized Calcium Derick (4.5-5.3) mg/dL Alkaline Phosphatase 273 H (38-126) U/L Total Protein 5.9 L (6.3-8.2) g/dL Albumin 2.8 L (3.5-5.0) g/dL Vitamin D 25-Hydroxy (30.0-100.0) ng/mL Procalcitonin (0.02-0.09) ng/mL PTH Intact 6.1 L (14.0-72.0) pg/mL 10/04/20 Range/Units 07:18 WBC (3.8-10.6) k/uL RBC (4.30-5.90) m/uL Hgb (13.0-17.5) gm/dL Hct (39.0-53.0) % Neutrophils # (Manual) (1.3-7.7) k/uL Myelocytes # (Manual) (0) k/uL APTT 53.9 H (22.0-30.0) sec Glucose (74-99) mg/dL Calcium (8.4-10.2) mg/dL Ionized Calcium Derick (4.5-5.3) mg/dL Alkaline Phosphatase (38-126) U/L Total Protein (6.3-8.2) g/dL Albumin (3.5-5.0) g/dL Vitamin D 25-Hydroxy (30.0-100.0) ng/mL Procalcitonin (0.02-0.09) ng/mL PTH Intact (14.0-72.0) pg/mL Microbiology - Last 24 Hours (Table) 10/03/20 17:05 Gram Stain - Preliminary Sputum Sputum Culture - Preliminary 10/02/20 18:06 Blood Culture - Preliminary Blood No Growth after 24 hours Assessment and Plan Assessment: Impression: Multiple constitutional symptoms mostly likely secondary to metastatic disease, strongly suspect small cell lung cancer, however other primary sources of malignancy would have to be considered. 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 Limited the vein thromboses in the left lower extremity. History of covid 19 infection in June. History of COPD. Ex-smoker. History of coronary artery disease and previous CABG and stent. History of abdominal aortic aneurysm. History of cardiac arrest in my office requiring brief CPR. Elevated sed rate most likely secondary to malignancy. Hypercalcemia most likely secondary to underlying malignancy. Recommendation: Continue empiric antibiotics, cultures remain negative so far. Continue present supportive care measures. ultrasound or CT-guided needle biopsy of the liver lesions however if nondiagnostic, we'll consider bronchoscopy and trans-carinal biopsy. Continue anticoagulation therapy with heparin and could hold the heparin hours before the liver biopsy. Hydration and correct hypercalcemia. Continue methylprednisolone Discussed his condition again with his at bedside, and explained to her that we may be dealing with some underlying malignancy hopefully the liver biopsy would give us more information in the next couple of days. Prognosis is definitely guarded. Time with Patient: Less than 30
[2020-10-04] MEDS: HEPARIN SOD,PORK IN 0.45% NACL 25,000 UNIT in 0.45% NACL 1 250ML.BAG IV SCH (16:24)
[2020-10-04] MEDS: ACETAMINOPHEN TAB 325 MG TAB PO PRN ×2 (17:12→23:43)
[2020-10-04] MEDS: ALPRAZolam 0.25 MG TAB PO PRN (17:12)
[2020-10-04] MEDS: NON FORMULARY DRUG (Acetaminophen/Diphenhydramine [Tylenol Pm 500-25mg] 1 EACH Tablet) PO SCH (20:12)
[2020-10-04] MEDS: ATORVASTATIN 10 MG TAB PO SCH (20:19)
[2020-10-04] MEDS: TEMAZEPAM 15 MG CAP PO PRN (23:43)
[2020-10-05] MEDS: SODIUM CHLORIDE 0.9% 1,000 ML IV SCH ×4 (05:57→20:05)
[2020-10-05] MEDS: HYDROmorphone 0.5 MG/0.5 ML SYRINGE IVP PRN ×2 (06:05→12:37)
[2020-10-05] MEDS: IPRATROPIUM-ALBUTEROL 3 ML NEB INHALATION SCH ×3 (07:47→20:39)
[2020-10-05 08:35] LABS: INR 1.1 (<1.2); Partial Thromboplastin Time 44.2 sec (22.0-30.0); Prothrombin Time 11.7 sec (9.0-12.0)
[2020-10-05] MEDS: ASPIRIN 81 MG PO SCH (08:43)
[2020-10-05] MEDS: methylPREDNISolone SOD SUCCI 40 MG/ML 1 ML VIAL IV SCH ×3 (08:51→23:22)
[2020-10-05] MEDS: PANTOPRAZOLE 40 MG/10 ML VIAL IVP SCH (08:53)
[2020-10-05] MEDS: LACTOBACILLUS ACIDOPH & BULGAR 1 EACH PACKET PO SCH (08:54)
[2020-10-05] MEDS: METOPROLOL TARTRATE 25 MG TAB PO SCH ×2 (08:54→20:04)
[2020-10-05] MEDS: NON FORMULARY DRUG (Vitamin B Complex [Vitamin B Complex] 1 EACH Capsule) PO SCH (08:54)
[2020-10-05] MEDS: ERGOCALCIFEROL 1,250 MCG (50,000 IU) CAPSULE PO SCH (08:54)
[2020-10-05] MEDS: AZITHROMYCIN 500 MG in SODIUM CHLORIDE 0.9% 250 ML IVPB SCH (09:52)
[2020-10-05] MEDS ORDERED: SODIUM CHLORIDE 0.9% 250 ML with PAMIDRONATE 30 MG IV ONE ×2 (11:03)
--- NOTE | 2020-10-05 14:00 | P.PN ---
Subjective Progress Note Date: 10/05/20 Principal diagnosis: Liver lesions, hilar and mediastinal lymphadenopathy In follow-up today patient's is at the bedside. Patient is mild to moderately confused. Over the last 2 weeks his activity level has decreased substantially. He has pain on his back from the bed. In general he is agitated Objective - Vital Signs Vital signs: Vital Signs Temp 97.6 F 10/05/20 11:26 Pulse 83 10/05/20 11:26 Resp 20 10/05/20 11:26 BP 152/79 10/05/20 11:26 Pulse Ox 93 L 10/05/20 11:26 Intake & Output 10/04/20 10/05/20 10/05/20 18:59 06:59 18:59 Intake Total 1757.067 Output Total 300 Balance 1757.067 -300 Weight 104 kg 107 kg Intake: Intake, IV Titration 1032.067 Amount Azithromycin 500 mg In 250 Sodium Chloride 0.9% 250 ml @ 250 mls/hr IVPB DAILY [facility] Rx#:[id number] Heparin Sod,Pork in 0.45% 232.067 NaCl 25,000 unit In 0.45 % NaCl 1 250ml.bag @ 9.19 UNITS/KG/HR 10.004 mls/ hr IV .Q24H [facility] Rx#: [id number] Sodium Chloride 0.9% 1, 500 000 ml @ 150 mls/hr IV . Q6H40M [facility] Rx#:[id number] cefTRIAXone 1 gm In 50 Sodium Chloride 0.9% 50 ml @ 100 mls/hr IVPB Q24HR [facility] Rx#:[id number] Oral 725 Output: Urine 300 Other: Voiding Method Urinal # Voids 1 0 - Constitutional General appearance: Present: cooperative, mild distress, obese - EENT Eyes: Present: anicteric sclerae, EOMI ENT: Present: hearing grossly normal, thrush - Respiratory Respiratory: bilateral: CTA, diminished - Cardiovascular Rhythm: regular Heart sounds: normal: S1, S2 Abnormal Heart Sounds: Absent: systolic murmur, diastolic murmur, rub, S3 Gallop, S4 Gallop, click, other - Peripheral edema leg Peripheral Edema: bilateral: Trace - Gastrointestinal General gastrointestinal: Present: normal bowel sounds, soft - Integumentary Integumentary: Present: pale - Neurologic Neurologic: Present: CNII-XII intact - Musculoskeletal Musculoskeletal: Present: generalized weakness - Psychiatric Psychiatric Comment(s): A&O 2 Psychiatric: Present: appropriate affect - Labs CBC & Chem 7: 10/04/20 07:18 10/04/20 07:18 Labs: Abnormal Lab Results - Last 24 Hours (Table) 10/05/20 Range/Units 07:36 APTT 44.2 H (22.0-30.0) sec Microbiology - Last 24 Hours (Table) 10/03/20 17:05 Gram Stain - Final Sputum Sputum Culture - Final Kayla albicans 10/02/20 18:06 Blood Culture - Preliminary Blood No Growth after 48 hours - Imaging and Cardiology CT scan - abdomen: report reviewed CT scan - chest: report reviewed CT scan - pelvis: report reviewed Assessment and Plan (1) Hypercalcemia Narrative/Plan: Calcium noted to be down slightly today. Single dose of Aredia ordered. Calcium level in the a.m. Nuclear medicine bone scan today. Did let patient and his know that symptoms of hypercalcemia can be confusion, muscle cramping and constipation. Hopefully, some of patient's confusion will subside/decrease with treatment Current Visit: Yes Status: Acute Priority: High Code(s): E83.52 - HYPERCALCEMIA SNOMED Code(s): 21777144 (2) Liver lesion Current Visit: Yes Status: Acute Priority: High Code(s): K76.9 - LIVER DISEASE, UNSPECIFIED SNOMED Code(s): 904189769 (3) Pulmonary nodule Current Visit: Yes Status: Acute Priority: High Code(s): R91.1 - SOLITARY PULMONARY NODULE SNOMED Code(s): 601592289 (4) Thrush Narrative/Plan: Likely from respiratory treatments and possibly to a degree immune system from recent infection. Treatment ordered. Current Visit: Yes Status: Acute Priority: Medium Code(s): B37.0 - CANDIDAL STOMATITIS SNOMED Code(s): 10268187 Plan: Patient received aspirin for/3. This is on hold. Plan is for outpatient liver biopsy. I explained to patient and his that follow-up with Oncology would be 5-7 days after biopsy for diagnosis based on pathology results. Also, Oncologist would be able to offer prognosis and treatment options. After discussion with patient and his , patient has had progressively declining performance status over the last 2-3 weeks. They unable to recall any recent scans that the pt may have had which, I was hoping, may be available to compare. Not sure f findings are related to recent Covid diagnosis or not. We'll follow through with liver biopsy and pathology results. All of the patient and his 's questions were answered to the best of my ability.
--- NOTE | 2020-10-05 14:11 | P.PN ---
Subjective HISTORY OF PRESENT ILLNESS: 10/03/2020 This is a 70-year-old male with a past medical history significant for COPD, hypertension, hyperlipidemia, AAA, coronary artery disease with previous CABG and stenting, and former nicotine dependence. Patient follows in the office with Dr. Esteves. We have been asked to see the patient in consultation for elevated troponins. Patient examined at the bedside. Patient presented to the hospital secondary to increasing fatigue. Patient states him and his both had Covid in June 2020. He reports that she improved and got better but he states he has not. He reports extreme weakness and states his has been helping to take care of him at home. The patient currently denies any chest pain or pressure. He does report shortness of breath with exertion. He states he used to smoke 2 packs per day and quit in 2014. EKG reveals sinus mechanism with no signs of acute ischemia. Chest xray patchy changes continuing the periphery of the right upper to mid lung and may be part and chronic. Subtle infiltrate difficult excluded. Underlying COPD. Chest CTA: Negative for pulmonary emboli sm. A right apical and posterior right lower lung mass. Abdomen CT and pelvis: Numerous liver lesions suggestive of metastatic disease. Laboratory data: WBC 44.4. Hemoglobin 13.6. Platelet count 262. Sodium 135. Potassium 4.4. BUN 17. Creatinine 0.76. Troponin 0.109. 0.115. 0.122. Current home cardiac medications include simvastatin 20 mg daily, metoprolol tartrate 25 mg twice a day, aspirin 81 mg daily, Eliquis 5 mg twice a day Most recent echocardiogram obtained reveals ejection fraction 50-55%. Basal inferior LV wall hypokinesis 10/05/2020 Patient examined this morning at the bedside. Patient denies chest pain or pressure. He reports minimal shortness of breath. States he has had shortness of breath for a year and this is not new to him. He continues to feel weak. Blood pressure 152/79, HR 70s, afebrile, on 2L nasal cannula. States his plan is to have a liver biopsy today. Currently being maintained on IV heparin, atorvastatin 10 mg daily, metoprolol tartrate 25 mg twice a day. Laboratory data reviewed, WBC 48.2, hemoglobin 12.1, platelets 267, sodium 137, potassium 4.2, serum creatinine 0.76, AST 36, ALT 26, alk phos 273, TSH 0.7. Telemetry reviewed patient in sinus mechanism HR 80s-100. PHYSICAL EXAM: VITAL SIGNS: Reviewed. GENERAL: No acute distress HEENT: Head is normocephalic. Pupils are equal, round. Sclerae anicteric. Mucous membranes of the mouth are moist. Neck supple. No JVD or thyromegaly LUNGS: Respirations even and unlabored. Lungs diminished bilaterally. HEART: Regular rate and rhythm. S1 and S2 heard. Soft systolic murmur noted. ABDOMEN: Soft. Nondistended. Nontender. EXTREMITIES: Normal range of motion. No clubbing or cyanosis. Peripheral pulses intact. No lower extremity edema NEUROLOGIC: Awake and alert. Oriented x 3. ASSESSMENT: Generalized weakness Right apical and posterior right lower lobe lung mass, per CTA Numerous liver lesions, suggestive of metastatic disease per CT History of CovidJune 2020 Abnormal troponins, not indicative of myocardial injury Coronary artery disease with previous stenting and CABG 2011 Paroxysmal atrial fibrillation, on anticoagulation with Eliquis History of AAA, status post endovascular repair Hypertension Hyperlipidemia History of nicotine dependence, patient smoked 2 packs per day and quit in 2014 PLAN: Due to patient being on aspirin, liver biopsy is now on hold, plan is for outpatient liver biopsy in about 7 days Recommend transition back to [facility] when okay with pulmonary. Further recommendations pending patient's course Nurse practitioner note has been reviewed by physician. Signing provider agrees with the documented findings, assessment, and plan of care. Objective - Vital Signs Vital signs: Vital Signs Temp 97.5 F L 10/05/20 04:00 Pulse 76 10/05/20 07:58 Resp 18 10/05/20 04:00 BP 135/79 10/05/20 04:00 Pulse Ox 95 10/05/20 04:00 Intake & Output 10/04/20 10/05/20 10/05/20 18:59 06:59 18:59 Intake Total 1757.067 Output Total 300 Balance 1757.067 -300 Weight 104 kg 107 kg Intake: Intake, IV Titration 1032.067 Amount Azithromycin 500 mg In 250 Sodium Chloride 0.9% 250 ml @ 250 mls/hr IVPB DAILY [facility] Rx#:[id number] Heparin Sod,Pork in 0.45% 232.067 NaCl 25,000 unit In 0.45 % NaCl 1 250ml.bag @ 9.19 UNITS/KG/HR 10.004 mls/ hr IV .Q24H [facility] Rx#: [id number] Sodium Chloride 0.9% 1, 500 000 ml @ 150 mls/hr IV . Q6H40M [facility] Rx#:[id number] cefTRIAXone 1 gm In 50 Sodium Chloride 0.9% 50 ml @ 100 mls/hr IVPB Q24HR [facility] Rx#:[id number] Oral 725 Output: Urine 300 Other: # Voids 1 0 - Labs CBC & Chem 7: 10/04/20 07:18 10/04/20 07:18 Labs: Abnormal Lab Results - Last 24 Hours (Table) 10/03/20 10/04/20 10/04/20 Range/Units 21:59 07:18 07:18 WBC 48.2 H (3.8-10.6) k/uL Neutrophils # (Manual) 45.30 H (1.3-7.7) k/uL Myelocytes # (Manual) 0.48 H (0) k/uL APTT (22.0-30.0) sec Vitamin D 25-Hydroxy 121.7 H (30.0-100.0) ng/mL PTH Intact 6.1 L (14.0-72.0) pg/mL 10/05/20 Range/Units 07:36 WBC (3.8-10.6) k/uL Neutrophils # (Manual) (1.3-7.7) k/uL Myelocytes # (Manual) (0) k/uL APTT 44.2 H (22.0-30.0) sec Vitamin D 25-Hydroxy (30.0-100.0) ng/mL PTH Intact (14.0-72.0) pg/mL Microbiology - Last 24 Hours (Table) 10/03/20 17:05 Gram Stain - Final Sputum Sputum Culture - Final Kayla albicans 10/02/20 18:06 Blood Culture - Preliminary Blood No Growth after 48 hours
--- NOTE | 2020-10-05 14:33 | NM ---
EXAMINATION TYPE: NM bone scan whole body DATE OF EXAM: 10/05/2020 COMPARISON: Correlation CT 10/02/2020 HISTORY: 70-year-old male hypercalcemia. Technique: Delayed whole-body scanning was performed following the injection of 25.4 mCi Tc 99m MDP. Anterior and posterior whole-body images acquired 4 hours post injection. FINDINGS: Some patchy increased tracer is present along the calvarium. Small focus of increased tracer activity left posterior 10th rib. Small focus of increased activity along the inferior medial margin of the right scapula. Increased activity subtrochanteric proximal right femur. Degenerative activity involving the left lateral femoral condyle probably degenerative. Degenerative activity at the first MTP joints and left hindfoot. IMPRESSION: 1. Given findings on patient's recent CT concerning for neoplasm and metastatic disease, scintigraphi c findings involving the left posterior 10th rib, inferior right scapula, and subtrochanteric right f emur are compatible with osseous metastases. 2. Patchy increased signal change involving the calvarium is nonspecific and could represent addition al osseous metastases. 3. Increased signal left lateral femoral condyle likely on a degenerative basis. Consider radiographi c correlation.
[2020-10-05] MEDS: NYSTATIN 100,000 UNIT/ML SUSP 500,000 UNIT/5 ML CUP PO SCH ×3 (15:01→20:04)
[2020-10-05] MEDS: ACETAMINOPHEN TAB 325 MG TAB PO PRN ×2 (16:12→23:30)
--- NOTE | 2020-10-05 18:01 | P.PN ---
Subjective Progress Note Date: 10/05/20 Principal diagnosis: Elevated troponin. This is a 70-year-old white male familiar to my service. with history of multiple medical problems including coronary artery disease and previous CABG and stent placement. History of abdominal aortic aneurysm and previous stent placement, history of hypertension, mild asymptomatic COPD, remote smoking history quit smoking over 20 years ago. Patient normally sees me on a regular basis in the office, and I saw this patient basically about a month ago. Patient was recovering from Covid 19 infection which she had in June, and did not require any hospitalization. When I saw him about a month ago, follow- up chest x-ray was done in the office, and it was basically unremarkable. The chest x-ray was dated 09/03/2020, and it showed peripheral increased lung markings, chronic changes stable and it was compared to the chest x-ray that was done on 06/27/2020. On that specific chest x-ray, there was no suspicion of any findings to suggest malignancy. On 10/02/2020, patient was seen in the ER, and he had multiple constitutional symptoms including weakness, unable to ambulate, patient has been losing weight over the last month or so. A chest x-ray was done questioned some nodularity in the left lung, and after I reviewed the chest x-ray I recommended a CT angiogram of the chest. This came back quite abnormal showing extensive enlargement of lymph nodes throughout the mediastinum and right hilar region it also showed right apical and posterior right lower nodules. It also showed extensive multiple hypodense lesions within the liver compatible with metastasis. Patient had no previous history of malignancy. And over the years he declined having colonoscopy. Patient smoked until about 20 years ago, and he had family history of lung cancer./Father. Considering the findings on the CT of the chest and on the chest x-ray, I was asked to see this patient on consultation. Venous Doppler on this admission showed limited deep vein thromboses in the left lower extremity. CT of the abdomen and pelvis showed mostly numerous liver lesions suggestive of metastatic disease. Reevaluated today on 10/04/2020, patient continues to feel weakness. Denies any cough, no fever, no chills, no hemoptysis. Continues to have leukocytosis with WBC count of 48.2 hemoglobin is 12.1. Remains on heparin for his deep vein thrombosis, calcium is down to 11.2 from 12.6 yesterday. Ionized calcium yesterday was 6.7. Pro-calcitonin is 0.55, patient remains empirically on antibiotics in the form of Rocephin and Zithromax. Blood cultures and sputum cultures are negative so far since admission. Patient is supposedly scheduled to have CT guided liver biopsy or ultrasound guided liver biopsy tomorrow however he is on heparin and that has to be put on hold for 2 hours prior to the procedure. today is at bedside, and I discu ssed his condition with the at bedside. And explained to her that we are working him up for possible metastatic disease. Primary remains unknown, but I'm suspecting that we may be dealing with small cell lung cancer. Progress note dated 10/05/2020. This is a 70-year-old male, who sees my partner as a primary. He has a history of multiple medical problems including coronary artery disease, with previous bypass grafting, and stent placement, abdominal aortic aneurysm, with previous stent placement, hypertension, mild asymptomatic COPD, and a remote history of tobacco use. The patient did have COVID 19 infection in June. More recently, he is currently being evaluated for possible malignancy, may be lung cancer. The CT that was done showed extensive enlargement of lymph nodes throughout the mediastinum and right hilar region, and, it was discovered that he had metastatic deposits and multiple bony areas, and in the liver. Dr. Heck was concerned about small cell lung cancer. The only new labs today or a PT of 11.7, INR 1.1, PTT of 44.2. The patient had recently been on a factor X a inhibitor. The bone scan showed potential metastatic deposits in the left posterior 10th rib, inferior right scapula, and subtrochanteric right femur. In addition, there is an abnormal signal in the calvarium. Objective - Vital Signs Vital signs: Vital Signs Temp 97.4 F L 10/05/20 15:42 Pulse 77 10/05/20 15:42 Resp 18 10/05/20 15:42 BP 139/72 10/05/20 15:42 Pulse Ox 95 10/05/20 15:42 Intake & Output 10/04/20 10/05/20 10/05/20 18:59 06:59 18:59 Intake Total 1757.067 Output Total 300 200 Balance 1757.067 -300 -200 Weight 104 kg 107 kg Intake: Intake, IV Titration 1032.067 Amount Azithromycin 500 mg In 250 Sodium Chloride 0.9% 250 ml @ 250 mls/hr IVPB DAILY [facility] Rx#:[id number] Heparin Sod,Pork in 0.45% 232.067 NaCl 25,000 unit In 0.45 % NaCl 1 250ml.bag @ 9.19 UNITS/KG/HR 10.004 mls/ hr IV .Q24H [facility] Rx#: [id number] Sodium Chloride 0.9% 1, 500 000 ml @ 150 mls/hr IV . Q6H40M [facility] Rx#:[id number] cefTRIAXone 1 gm In 50 Sodium Chloride 0.9% 50 ml @ 100 mls/hr IVPB Q24HR [facility] Rx#:[id number] Oral 725 Output: Urine 300 200 Other: Voiding Method Urinal # Voids 1 0 - Exam No acute distress, oriented 3. Saturations are 95% on 2 L nasal O2. HEENT examination is grossly unremarkable. Mucous membranes are moist. No oral lesions. Neck supple. Full range of motion. No adenopathy thyromegaly or neck vein distention. Cardiovascular examination reveals regular rhythm rate. S1-S2 normal. No S3 or S4. No discernible murmur noted. Lungs reveal clear breath sounds. Her sounds are equal bilaterally. No adventitious lung sounds including wheezes rhonchi or crackles. Abdomen soft bowel sounds are heard. No masses or tenderness. Extremities are intact. No cyanosis clubbing or edema. Skin is without rash or lesion. Neurologic examination is brief but nonfocal. 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 Multiple metastatic deposits noted in the liver and bony structures. Deep vein thrombosis, left lower extremity. Prior history of COVID 19 infection, June 2020. History of mild asymptomatic COPD. Prior history of tobacco use. History of CAD, with previous bypass grafting, and stent. Status post stenting of abdominal aortic aneurysm. Prior history of cardiac arrest in our office, requiring brief CPR. Hypercalcemia, thought to be related to underlying malignancy. Plan: Plan dated 10/05/2020. The patient will eventually need a liver biopsy to be performed by interventional radiology. If nondiagnostic, we might consider bronchoscopy and transbronchial needle aspiration of the thoracic nodes. The patient is being treated for his hypercalcemia. He understands the seriousness of the problem. Interventional radiology is waiting a couple days because the patient was on a factor X a inhibitor. We will continue to follow. Prognosis is guarded. Time with Patient: Less than 30
[2020-10-05 19:49] LABS: Glucose,Whole Blood 136 mg/dL (75-99)
[2020-10-05] MEDS: NON FORMULARY DRUG (Acetaminophen/Diphenhydramine [Tylenol Pm 500-25mg] 1 EACH Tablet) PO SCH (19:57)
[2020-10-05] MEDS: ATORVASTATIN 10 MG TAB PO SCH (20:05)
[2020-10-05] MEDS: INSULIN ASPART (NovoLOG) 100 UNIT/ML VIAL SQ SCH (20:05)
[2020-10-05] MEDS: FLUCONAZOLE IN NACL,ISO-OSM 100 MG in SALINE 1 50ML.BAG IVPB SCH (20:05)
[2020-10-05] MEDS: HEPARIN SOD,PORK IN 0.45% NACL 25,000 UNIT in 0.45% NACL 1 250ML.BAG IV SCH (20:06)
[2020-10-05 20:21] LABS: ALT 33 U/L (4-49); AST 34 U/L (17-59); African American GFR (CKD) >90 (>60 ml/min/1.73 sqM); Albumin 2.8 g/dL (3.5-5.0); Alkaline Phosphatase 239 U/L (38-126); Anion Gap 6 mmol/L; Blood Urea Nitrogen 21 mg/dL (9-20); Calcium 10.9 mg/dL (8.4-10.2); Carbon Dioxide 24 mmol/L (22-30); Chloride 109 mmol/L (98-107); Glucose 148 mg/dL (74-99); Non-African American GFR(CKD) 90 (>60 ml/min/1.73 sqM); Potassium 4.5 mmol/L (3.5-5.1); Sodium 139 mmol/L (137-145); Total Bilirubin 0.4 mg/dL (0.2-1.3); Total Protein 5.8 g/dL (6.3-8.2)
--- NOTE | 2020-10-05 22:55 | PN ---
PROGRESS NOTE DATE OF SERVICE: 10/05/2020 This 70-year-old gentleman who was admitted with shortness of breath and weakness also had multiple lung METS. The patient apparently taking aspirin, because of the recent liver biopsy for one week. The patient is being closely monitored. Patient extremely unstable and difficulty speaking weakness. A bone scan has been ordered and bone scan reviewed personally by me showed possible involvement of the left posterior 10th rib inferior right scapula and patchy increased signal involving the calvarium also was nonspecific. The patient being closely monitored at this time. Past medical history reviewed. REVIEW OF SYSTEMS: CARDIOVASCULAR SYSTEM: No angina or palpitations. RESPIRATION: As mentioned earlier. GI as mentioned earlier. no dysuria. NERVOUS SYSTEM: Diffusely weak. CURRENT MEDICATIONS: Reviewed and include: Tylenol, [place], DuoNeb, Xanax, Lipitor, Zithromax, Rocephin. PHYSICAL EXAM: Patient is alert, oriented x2. Pulse 77, blood pressure 139/72, respiration 18, temperature 97.4, pulse ox 94% on 2 L. HEENT: Conjunctivae normal. Oral mucosa moist. NECK is no jugular venous distention. No carotid bruit. No lymph node enlargement. Cardiovascular system: S1, S2 muffled. RESPIRATORY: Breath sounds diminished in the bases. A few scattered rhonchi and crackles. ABDOMEN: Soft, nontender. LEGS are no edema. No swelling. NERVOUS SYSTEM: Diffusely weak. LAB STUDIES: WBC 48.2. Cultures are Kayla albicans in the sputum. ASSESSMENT: 1. Shortness of breath and weakness possibly secondary to multiple lung METS and pulmonary malignancy. 2. Right apical posterior right lower lobe mass with extensive enlargement of the mediastinum, lymph nodes and right hilar region, possibly non-small cell carcinoma with METS per Dr. Ty. 3. Possible pneumonia with early sepsis, present on admission. 4. Kayla albicans from the sputum. 5. Mild hyperdensities in the periphery of the liver. 6. Limited deep vein thrombosis of the left lower leg. 7. Recent Covid 19 infection. 8. Gait dysfunction. 9. Troponin 0.10, rule out acute [id number]-[id number]-cfeteqo-elevation myocardial infarction. 10.Increased WBC. 11.Elevated D-dimer without any evidence of acute pulmonary embolism. 12.Hypertension. 13.Hypercalcemia. 14.Increased alkaline phosphatase. 15.Tachycardia with PVCs. 16.History of asthma/chronic obstructive pulmonary disease. 17.Hypertension. 18.Hyperlipidemia. 19.History of myocardial infarction. 20.History of abdominal aortic aneurysm. 21.History of coronary artery disease, coronary artery bypass grafting/stent. 22.Remote history of nicotine dependence. 23.Obesity with body mass index of 31.7. RECOMMENDATIONS AND DISCUSSION: Recommend to continue current medications, symptomatic treatment. Otherwise, we have to wait for at least 1 week for the liver biopsy. Would add Diflucan to the current regimen. Otherwise EKG to rule out the possibility of any QT prolongation. Other than that, I would recommend continue the antibiotics and continue the rest of medications. We will also evaluate for PT/OT evaluation and possible ECF rehab because of the extreme weakness which was observed at the bedside. Other than that, overall prognosis extremely guarded, which I discussed at length with the at the bedside. Understands and agrees. Further recommendations to follow. Closely follow with pulmonary, Hematology, Oncology. ALEXA / LUIS: [id number] / MTDD
[2020-10-05] MEDS: TEMAZEPAM 15 MG CAP PO PRN (23:30)
[2020-10-06] MEDS: SODIUM CHLORIDE 0.9% 1,000 ML IV SCH ×4 (03:19→20:46)
[2020-10-06 04:07] LABS: Basophils # (A) 0.5 k/uL (0-0.2); Basophils % (A) 1 %; Eosinophils # (A) 0.3 k/uL (0-0.7); Eosinophils % (A) 1 %; HCT 38.5 % (39.0-53.0); HGB 12.5 gm/dL (13.0-17.5); Lymphocytes # (A) 0.6 k/uL (1.0-4.8); Lymphocytes % (A) 1 %; MCH 32.6 pg (25.0-35.0); MCHC 32.5 g/dL (31.0-37.0); MCV 100.2 fL (80.0-100.0); Mean Platelet Volume 8.5; Monocytes # (A) 1.3 k/uL (0-1.0); Monocytes % (A) 2 %; Neutrophils # (A) 55.8 k/uL (1.3-7.7); Platelet Count 263 k/uL (150-450); RBC 3.84 m/uL (4.30-5.90); RDW 13.8 % (11.5-15.5)
[2020-10-06 04:14] LABS: ALT 41 U/L (4-49); AST 44 U/L (17-59); African American GFR (CKD) >90 (>60 ml/min/1.73 sqM); Albumin 2.9 g/dL (3.5-5.0); Alkaline Phosphatase 273 U/L (38-126); Anion Gap 9 mmol/L; Blood Urea Nitrogen 20 mg/dL (9-20); Calcium 10.7 mg/dL (8.4-10.2); Carbon Dioxide 20 mmol/L (22-30); Chloride 110 mmol/L (98-107); Glucose 149 mg/dL (74-99); Non-African American GFR(CKD) >90 (>60 ml/min/1.73 sqM); Potassium 3.9 mmol/L (3.5-5.1); Sodium 139 mmol/L (137-145); Total Bilirubin 0.6 mg/dL (0.2-1.3); Total Protein 5.9 g/dL (6.3-8.2)
[2020-10-06 05:00] LABS: WBC 58.5 k/uL (3.8-10.6)
[2020-10-06 06:05] LABS: Glucose,Whole Blood 141 mg/dL (75-99)
[2020-10-06] MEDS: INSULIN ASPART (NovoLOG) 100 UNIT/ML VIAL SQ SCH ×4 (06:30→20:46)
[2020-10-06] MEDS: HYDROmorphone 0.5 MG/0.5 ML SYRINGE IVP PRN ×2 (07:02→20:46)
[2020-10-06] MEDS: IPRATROPIUM-ALBUTEROL 3 ML NEB INHALATION SCH ×3 (08:09→20:13)
[2020-10-06] MEDS: PANTOPRAZOLE 40 MG/10 ML VIAL IVP SCH (08:48)
[2020-10-06] MEDS: FLUCONAZOLE IN NACL,ISO-OSM 100 MG in SALINE 1 50ML.BAG IVPB SCH (08:49)
[2020-10-06] MEDS: methylPREDNISolone SOD SUCCI 40 MG/ML 1 ML VIAL IV SCH ×3 (08:49→22:53)
[2020-10-06] MEDS: LACTOBACILLUS ACIDOPH & BULGAR 1 EACH PACKET PO SCH ×2 (08:49→09:06)
[2020-10-06] MEDS: NYSTATIN 100,000 UNIT/ML SUSP 500,000 UNIT/5 ML CUP PO SCH ×4 (08:49→20:46)
[2020-10-06] MEDS: NON FORMULARY DRUG (Vitamin B Complex [Vitamin B Complex] 1 EACH Capsule) PO SCH (08:50)
[2020-10-06] MEDS: METOPROLOL TARTRATE 25 MG TAB PO SCH (08:50)
[2020-10-06] MEDS: AZITHROMYCIN 500 MG TAB PO SCH (08:50)
[2020-10-06] MEDS: ERGOCALCIFEROL 1,250 MCG (50,000 IU) CAPSULE PO SCH (08:50)
[2020-10-06 11:44] LABS: Glucose,Whole Blood 171 mg/dL (75-99)
[2020-10-06] MEDS ORDERED: SODIUM CHLORIDE 0.9% 250 ML with PAMIDRONATE 30 MG IV ONE ×2 (12:00)
[2020-10-06] MEDS: THIAMINE 100 MG TAB PO SCH (12:42)
[2020-10-06] MEDS: MULTIVITAMINS, THERA 1 EACH TAB PO SCH (12:42)
[2020-10-06] MEDS: FOLIC ACID 1 MG TAB PO SCH (12:42)
--- NOTE | 2020-10-06 13:36 | P.PN ---
Subjective Progress Note Date: 10/06/20 Principal diagnosis: Liver lesions, hilar and mediastinal lymphadenopathy, bone lesions In follow-up today patient's is at the bedside. Patient continues to be mild to moderately confused. He required 2 person assist to get from commode and back laying down in bed. He is on heparin drip for a-fib. Denies any bleeding. His back hurts from the bed. He is tolerating oral intake Objective - Vital Signs Vital signs: Vital Signs Temp 97.6 F 10/06/20 08:00 Pulse 81 10/06/20 12:00 Resp 18 10/06/20 12:00 BP 137/78 10/06/20 12:00 Pulse Ox 95 10/06/20 12:00 Intake & Output 10/05/20 10/06/20 10/06/20 18:59 06:59 18:59 Intake Total 790 248.933 Output Total 800 225 Balance -10 248.933 -225 Weight 107.5 kg Intake: Intake, IV Titration 250 8.933 Amount Heparin Sod,Pork in 0.45% 250 8.933 NaCl 25,000 unit In 0.45 % NaCl 1 250ml.bag @ 9.19 UNITS/KG/HR 10.004 mls/ hr IV .Q24H [facility] Rx#: [id number] Oral 540 240 Output: Urine 800 225 Other: Voiding Method Urinal Bedside Commode Urinal # Voids 1 1 - Constitutional General appearance: Present: cooperative, no acute distress, obese - EENT Eyes: Present: anicteric sclerae, EOMI ENT: Present: hearing grossly normal, thrush (scant) - Respiratory Respiratory: bilateral: CTA, diminished (bases) - Cardiovascular Rhythm: irregularly irregular Heart sounds: normal: S1, S2 Abnormal Heart Sounds: Absent: systolic murmur, diastolic murmur, rub, S3 Gallop, S4 Gallop, click, other - Peripheral edema leg Peripheral Edema: bilateral: Trace - Gastrointestinal General gastrointestinal: Present: normal bowel sounds, soft - Neurologic Neurologic: Present: CNII-XII intact - Musculoskeletal Musculoskeletal: Present: generalized weakness - Psychiatric Psychiatric Comment(s): inconsistent in his understanding of his situation Psychiatric: Present: A&O x's 3 - Labs CBC & Chem 7: 10/06/20 03:11 10/06/20 03:11 Labs: Abnormal Lab Results - Last 24 Hours (Table) 10/05/20 10/05/20 10/05/20 Range/Units 19:44 19:44 19:48 WBC (3.8-10.6) k/uL RBC (4.30-5.90) m/uL Hgb (13.0-17.5) gm/dL Hct (39.0-53.0) % MCV (80.0-100.0) fL Neutrophils # (1.3-7.7) k/uL Lymphocytes # (1.0-4.8) k/uL Monocytes # (0-1.0) k/uL Basophils # (0-0.2) k/uL APTT 37.7 H (22.0-30.0) sec Chloride 109 H (98-107) mmol/L Carbon Dioxide (22-30) mmol/L BUN 21 H (9-20) mg/dL Glucose 148 H (74-99) mg/dL POC Glucose (mg/dL) 136 H (75-99) mg/dL Calcium 10.9 H (8.4-10.2) mg/dL Alkaline Phosphatase 239 H (38-126) U/L Total Protein 5.8 L (6.3-8.2) g/dL Albumin 2.8 L (3.5-5.0) g/dL 10/06/20 10/06/20 10/06/20 Range/Units 03:11 03:11 03:11 WBC 58.5 H* (3.8-10.6) k/uL RBC 3.84 L (4.30-5.90) m/uL Hgb 12.5 L (13.0-17.5) gm/dL Hct 38.5 L (39.0-53.0) % MCV 100.2 H (80.0-100.0) fL Neutrophils # 55.8 H (1.3-7.7) k/uL Lymphocytes # 0.6 L (1.0-4.8) k/uL Monocytes # 1.3 H (0-1.0) k/uL Basophils # 0.5 H (0-0.2) k/uL APTT 47.7 H (22.0-30.0) sec Chloride 110 H (98-107) mmol/L Carbon Dioxide 20 L (22-30) mmol/L BUN (9-20) mg/dL Glucose 149 H (74-99) mg/dL POC Glucose (mg/dL) (75-99) mg/dL Calcium 10.7 H (8.4-10.2) mg/dL Alkaline Phosphatase 273 H (38-126) U/L Total Protein 5.9 L (6.3-8.2) g/dL Albumin 2.9 L (3.5-5.0) g/dL 10/06/20 10/06/20 Range/Units 06:03 11:43 WBC (3.8-10.6) k/uL RBC (4.30-5.90) m/uL Hgb (13.0-17.5) gm/dL Hct (39.0-53.0) % MCV (80.0-100.0) fL Neutrophils # (1.3-7.7) k/uL Lymphocytes # (1.0-4.8) k/uL Monocytes # (0-1.0) k/uL Basophils # (0-0.2) k/uL APTT (22.0-30.0) sec Chloride (98-107) mmol/L Carbon Dioxide (22-30) mmol/L BUN (9-20) mg/dL Glucose (74-99) mg/dL POC Glucose (mg/dL) 141 H 171 H (75-99) mg/dL Calcium (8.4-10.2) mg/dL Alkaline Phosphatase (38-126) U/L Total Protein (6.3-8.2) g/dL Albumin (3.5-5.0) g/dL Microbiology - Last 24 Hours (Table) 10/02/20 18:06 Blood Culture - Preliminary Blood No Growth after 72 hours - Imaging and Cardiology Nuclear medicine bone scan showing suspicious lesions correlating with computed tomography scan of the left 10th rib, right inferior scapula, right femur and questionable skull. Assessment and Plan (1) Hypercalcemia Narrative/Plan: Calcium noted to be down slightly today. Aredia given yesterday, no dose for today. Calcium level in the a.m. Nuclear medicine bone scan report reviewed. Current Visit: Yes Status: Acute Priority: High Code(s): E83.52 - HYPERCALCEMIA SNOMED Code(s): 10161676 (2) Liver lesion Current Visit: Yes Status: Acute Priority: High Code(s): K76.9 - LIVER DISEASE, UNSPECIFIED SNOMED Code(s): 048875941 (3) Pulmonary nodule Current Visit: Yes Status: Acute Priority: High Code(s): R91.1 - SOLITARY PULMONARY NODULE SNOMED Code(s): 302518039 (4) Thrush Narrative/Plan: Likely from respiratory treatments and possibly to a degree immune system from recent infection. Treatment ordered. Slightly better today. Current Visit: Yes Status: Acute Priority: Medium Code(s): B37.0 - CANDIDAL STOMATITIS SNOMED Code(s): 01008568 Plan: Patient received aspirin 10/03. This is on hold. Plan is for outpatient liver biopsy. I explained to patient and his that follow-up with Oncology would be 5-7 days after biopsy for diagnosis based on pathology results. Also, Oncologist would be able to offer prognosis and treatment options. Reviewed the nonspecific lesions found on the nuclear medicine bone scan. Reviewed all recent imaging including negative CT without contrast of the brain, CT of the chest abdomen and pelvis. Patient has mediastinal lymphadenopathy, liver lesions. We do need biopsy to determine the origin of these lesions. Explained to them that his presentation is highly suspicious for malignancy. All their questions were answered to the best of my ability and to their satisfaction. No documented BM, pt has narcotics on med list, added senna BID
[2020-10-06] MEDS ORDERED: METOPROLOL TARTRATE 25 MG TAB PO STA (14:13)
--- NOTE | 2020-10-06 14:17 | P.PN ---
Subjective HISTORY OF PRESENT ILLNESS: 10/03/2020 This is a 70-year-old male with a past medical history significant for COPD, hypertension, hyperlipidemia, AAA, coronary artery disease with previous CABG and stenting, and former nicotine dependence. Patient follows in the office with Dr. Esteves. We have been asked to see the patient in consultation for elevated troponins. Patient examined at the bedside. Patient presented to the hospital secondary to increasing fatigue. Patient states him and his both had Covid in June 2020. He reports that she improved and got better but he states he has not. He reports extreme weakness and states his has been helping to take care of him at home. The patient currently denies any chest pain or pressure. He does report shortness of breath with exertion. He states he used to smoke 2 packs per day and quit in 2014. EKG reveals sinus mechanism with no signs of acute ischemia. Chest xray patchy changes continuing the periphery of the right upper to mid lung and may be part and chronic. Subtle infiltrate difficult excluded. Underlying COPD. Chest CTA: Negative for pulmonary emboli sm. A right apical and posterior right lower lung mass. Abdomen CT and pelvis: Numerous liver lesions suggestive of metastatic disease. Laboratory data: WBC 44.4. Hemoglobin 13.6. Platelet count 262. Sodium 135. Potassium 4.4. BUN 17. Creatinine 0.76. Troponin 0.109. 0.115. 0.122. Current home cardiac medications include simvastatin 20 mg daily, metoprolol tartrate 25 mg twice a day, aspirin 81 mg daily, Eliquis 5 mg twice a day Most recent echocardiogram obtained reveals ejection fraction 50-55%. Basal inferior LV wall hypokinesis 10/06/2020 Patient examined this morning at the bedside. Patient denies chest pain or pressure. He reports shortness of breath and palpitations. He continues to feel weak, but feels more weak today. He does feel down due to his current health state. Blood pressure 137/78, HR 81, afebrile, on 2L nasal cannula. Currently being maintained on IV heparin, atorvastatin 10 mg daily, metoprolol tartrate 25 mg twice a day. Laboratory data reviewed, WBC increasing 58.5, hemoglobin stable at 12.5, platelets 263, sodium 139, potassium 3.9, serum creatinine 0.68, AST 44, ALT 41, alk phos 273, TSH 0.7. Telemetry reviewed patient was in sinus mechanism yesterday, but today is now back in atrial fibrillation with RVR HR 120s-130s. Patient also complaining of constipation, no bowel movement for 5 days. PHYSICAL EXAM: VITAL SIGNS: Reviewed. GENERAL: No acute distress, appears fatigued. HEENT: Head is normocephalic. Pupils are equal, round. Sclerae anicteric. Mucous membranes of the mouth are moist. Neck supple. No JVD or thyromegaly LUNGS: Respirations even and unlabored. Lungs diminished bilaterally. HEART: Regular rate and rhythm. S1 and S2 heard. Soft systolic murmur noted. ABDOMEN: Soft. Nondistended. Nontender. EXTREMITIES: Normal range of motion. No clubbing or cyanosis. Peripheral pulses intact. No lower extremity edema NEUROLOGIC: Awake and alert. Oriented x 3. ASSESSMENT: Generalized weakness Right apical and posterior right lower lobe lung mass, per CTA Numerous liver lesions, suggestive of metastatic disease per CT History of June 2020 Abnormal troponins, not indicative of myocardial injury Coronary artery disease with previous stenting and CABG 2011 Paroxysmal atrial fibrillation, on anticoagulation with Eliquis History of AAA, status post endovascular repair Hypertension Hyperlipidemia History of nicotine dependence, patient smoked 2 packs per day and quit in 2014 PLAN: Will increase metoprolol tartrate to 50mg BID Continue cardiac telemetry. Patient started on senna BID for constipation Recommend transition back to [facility] when okay with Pulmonary and Oncology Further recommendations pending patient's course Nurse practitioner note has been reviewed by physician. Signing provider agrees with the documented findings, assessment, and plan of care. Objective - Vital Signs Vital signs: Vital Signs Temp 97.4 F L 10/06/20 03:32 Pulse 84 10/06/20 08:20 Resp 20 10/06/20 03:32 BP 146/91 10/06/20 03:32 Pulse Ox 96 10/06/20 03:32 Intake & Output 10/05/20 10/06/20 10/06/20 18:59 06:59 18:59 Intake Total 790 248.933 Output Total 800 Balance -10 248.933 Weight 107.5 kg Intake: Intake, IV Titration 250 8.933 Amount Heparin Sod,Pork in 0.45% 250 8.933 NaCl 25,000 unit In 0.45 % NaCl 1 250ml.bag @ 9.19 UNITS/KG/HR 10.004 mls/ hr IV .Q24H [facility] Rx#: [id number] Oral 540 240 Output: Urine 800 Other: Voiding Method Urinal Bedside Commode Urinal # Voids 1 - Labs CBC & Chem 7: 10/06/20 03:11 10/06/20 03:11 Labs: Abnormal Lab Results - Last 24 Hours (Table) 10/05/20 10/05/20 10/05/20 Range/Units 19:44 19:44 19:48 WBC (3.8-10.6) k/uL RBC (4.30-5.90) m/uL Hgb (13.0-17.5) gm/dL Hct (39.0-53.0) % MCV (80.0-100.0) fL Neutrophils # (1.3-7.7) k/uL Lymphocytes # (1.0-4.8) k/uL Monocytes # (0-1.0) k/uL Basophils # (0-0.2) k/uL APTT 37.7 H (22.0-30.0) sec Chloride 109 H (98-107) mmol/L Carbon Dioxide (22-30) mmol/L BUN 21 H (9-20) mg/dL Glucose 148 H (74-99) mg/dL POC Glucose (mg/dL) 136 H (75-99) mg/dL Calcium 10.9 H (8.4-10.2) mg/dL Alkaline Phosphatase 239 H (38-126) U/L Total Protein 5.8 L (6.3-8.2) g/dL Albumin 2.8 L (3.5-5.0) g/dL 10/06/20 10/06/20 10/06/20 Range/Units 03:11 03:11 03:11 WBC 58.5 H* (3.8-10.6) k/uL RBC 3.84 L (4.30-5.90) m/uL Hgb 12.5 L (13.0-17.5) gm/dL Hct 38.5 L (39.0-53.0) % MCV 100.2 H (80.0-100.0) fL Neutrophils # 55.8 H (1.3-7.7) k/uL Lymphocytes # 0.6 L (1.0-4.8) k/uL Monocytes # 1.3 H (0-1.0) k/uL Basophils # 0.5 H (0-0.2) k/uL APTT 47.7 H (22.0-30.0) sec Chloride 110 H (98-107) mmol/L Carbon Dioxide 20 L (22-30) mmol/L BUN (9-20) mg/dL Glucose 149 H (74-99) mg/dL POC Glucose (mg/dL) (75-99) mg/dL Calcium 10.7 H (8.4-10.2) mg/dL Alkaline Phosphatase 273 H (38-126) U/L Total Protein 5.9 L (6.3-8.2) g/dL Albumin 2.9 L (3.5-5.0) g/dL 10/06/20 Range/Units 06:03 WBC (3.8-10.6) k/uL RBC (4.30-5.90) m/uL Hgb (13.0-17.5) gm/dL Hct (39.0-53.0) % MCV (80.0-100.0) fL Neutrophils # (1.3-7.7) k/uL Lymphocytes # (1.0-4.8) k/uL Monocytes # (0-1.0) k/uL Basophils # (0-0.2) k/uL APTT (22.0-30.0) sec Chloride (98-107) mmol/L Carbon Dioxide (22-30) mmol/L BUN (9-20) mg/dL Glucose (74-99) mg/dL POC Glucose (mg/dL) 141 H (75-99) mg/dL Calcium (8.4-10.2) mg/dL Alkaline Phosphatase (38-126) U/L Total Protein (6.3-8.2) g/dL Albumin (3.5-5.0) g/dL Microbiology - Last 24 Hours (Table) 10/02/20 18:06 Blood Culture - Preliminary Blood No Growth after 72 hours 10/03/20 17:05 Gram Stain - Final Sputum Sputum Culture - Final Kayla albicans
[2020-10-06] MEDS: SENNOSIDES 8.6 MG TAB PO SCH ×2 (15:46→20:46)
--- NOTE | 2020-10-06 16:04 | PN ---
PROGRESS NOTE DATE OF SERVICE: 10/06/2020 This 70-year-old gentleman was admitted with shortness of breath, multiple medical problems, being closely monitored at this time. The patient had significant mets. Biopsy could not be taken because of the reason the patient is on aspirin. Chest pain stopped at this time. The patient had recent COVID infection. A bone scan showed suspicious metastatic lesions also. PAST MEDICAL HISTORY: Reviewed. REVIEW OF SYSTEMS: CARDIOVASCULAR SYSTEM: No angina. RESPIRATORY SYSTEM: As mentioned earlier. GI: As mentioned earlier. NERVOUS SYSTEM: Diffusely weak. CURRENT MEDICATIONS: Current medications are reviewed and include Tylenol, [place], DuoNeb, Xanax, Lipitor, Zithromax. Doses are reviewed. PHYSICAL EXAMINATION: The patient is alert and oriented x3. Pulse is 79, blood pressure 137/78, respiration 18, temperature normal, pulse ox 94% on 2 L. HEENT: Conjunctivae normal. NECK: No jugular venous distention. CARDIOVASCULAR: S1, S2 muffled. RESPIRATORY: Breath sounds diminished at the bases. A few scattered rhonchi and crackles. ABDOMEN: Soft, nontender. LEGS: No edema. NERVOUS SYSTEM: No focal deficits. LABS: WBC 58.5. Sodium 139, potassium 3.9. Sputum culture showed Kayla albicans. ASSESSMENT: 1. Shortness of breath, weakness, possibly secondary to multiple lung metastasis and pulmonary malignancy. 2. Right apical posterior right lower lobe mass with extensive enlarged mediastinal lymph nodes, right hilar region, possibly non-small cell carcinoma with metastasis by Dr. Ty. 3. Kayla albicans from the sputum. 4. Possible pneumonia, possibly gram-negative with early sepsis, present on admission. 5. Mild hyperdensities in the periphery of the liver. 6. Limited deep vein thrombosis acute of the left lower leg. 7. Recent COVID-19 infection. 8. Gait dysfunction. 9. Troponin 0.10, rule out acute ucm-MG-bdcwesi-elevation myocardial infarction. 10.Increased WBC. 11.Elevated D-dimer without any evidence of acute pulmonary embolism. 12.Hypertension. 13.Hypercalcemia. 14.Increased alkaline phosphatase. 15.Tachycardia with PVCs. 16.History of asthma, chronic obstructive pulmonary disease. 17.Hypertension. 18.Hyperlipidemia. 19.History of myocardial infarction. 20.History of abdominal aortic aneurysm. 21.History of coronary artery disease, coronary artery bypass grafting, stent. 22.Remote history of nicotine dependence. 23.Obesity with body mass index of 31.7. RECOMMENDATIONS AND DISCUSSION: Recommend to continue current medications, continue symptomatic treatment. Continue bronchodilators, continue the antibiotics, continue the antifungals. Otherwise PT, OT evaluation. At this time, the patient has to wait for at least a week before the biopsy is done. Closely follow with multiple consultants. Continue with bronchodilators. Continue with IV heparin. Guarded prognosis. Further recommendations to follow. MMODL / IJN: [id number] /
[2020-10-06 16:39] LABS: Glucose,Whole Blood 194 mg/dL (75-99)
--- NOTE | 2020-10-06 17:22 | P.PN ---
Subjective Progress Note Date: 10/06/20 Principal diagnosis: Elevated troponin. This is a 70-year-old white male familiar to my service. with history of multiple medical problems including coronary artery disease and previous CABG and stent placement. History of abdominal aortic aneurysm and previous stent placement, history of hypertension, mild asymptomatic COPD, remote smoking history quit smoking over 20 years ago. Patient normally sees me on a regular basis in the office, and I saw this patient basically about a month ago. Patient was recovering from Covid 19 infection which she had in June, and did not require any hospitalization. When I saw him about a month ago, follow- up chest x-ray was done in the office, and it was basically unremarkable. The chest x-ray was dated 09/03/2020, and it showed peripheral increased lung markings, chronic changes stable and it was compared to the chest x-ray that was done on 06/27/2020. On that specific chest x-ray, there was no suspicion of any findings to suggest malignancy. On 10/02/2020, patient was seen in the ER, and he had multiple constitutional symptoms including weakness, unable to ambulate, patient has been losing weight over the last month or so. A chest x-ray was done questioned some nodularity in the left lung, and after I reviewed the chest x-ray I recommended a CT angiogram of the chest. This came back quite abnormal showing extensive enlargement of lymph nodes throughout the mediastinum and right hilar region it also showed right apical and posterior right lower nodules. It also showed extensive multiple hypodense lesions within the liver compatible with metastasis. Patient had no previous history of malignancy. And over the years he declined having colonoscopy. Patient smoked until about 20 years ago, and he had family history of lung cancer./Father. Considering the findings on the CT of the chest and on the chest x-ray, I was asked to see this patient on consultation. Venous Doppler on this admission showed limited deep vein thromboses in the left lower extremity. CT of the abdomen and pelvis showed mostly numerous liver lesions suggestive of metastatic disease. Reevaluated today on 10/04/2020, patient continues to feel weakness. Denies any cough, no fever, no chills, no hemoptysis. Continues to have leukocytosis with WBC count of 48.2 hemoglobin is 12.1. Remains on heparin for his deep vein thrombosis, calcium is down to 11.2 from 12.6 yesterday. Ionized calcium yesterday was 6.7. Pro-calcitonin is 0.55, patient remains empirically on antibiotics in the form of Rocephin and Zithromax. Blood cultures and sputum cultures are negative so far since admission. Patient is supposedly scheduled to have CT guided liver biopsy or ultrasound guided liver biopsy tomorrow however he is on heparin and that has to be put on hold for 2 hours prior to the procedure. today is at bedside, and I discu ssed his condition with the at bedside. And explained to her that we are working him up for possible metastatic disease. Primary remains unknown, but I'm suspecting that we may be dealing with small cell lung cancer. Progress note dated 10/05/2020. This is a 70-year-old male, who sees my partner as a primary. He has a history of multiple medical problems including coronary artery disease, with previous bypass grafting, and stent placement, abdominal aortic aneurysm, with previous stent placement, hypertension, mild asymptomatic COPD, and a remote history of tobacco use. The patient did have COVID 19 infection in June. More recently, he is currently being evaluated for possible malignancy, may be lung cancer. The CT that was done showed extensive enlargement of lymph nodes throughout the mediastinum and right hilar region, and, it was discovered that he had metastatic deposits and multiple bony areas, and in the liver. Dr. Heck was concerned about small cell lung cancer. The only new labs today or a PT of 11.7, INR 1.1, PTT of 44.2. The patient had recently been on a factor X a inhibitor. The bone scan showed potential metastatic deposits in the left posterior 10th rib, inferior right scapula, and subtrochanteric right femur. In addition, there is an abnormal signal in the calvarium. Progress note dated 10/06/2020. 70-year-old gentleman, currently being evaluated for possible metastatic colon cancer. Currently, the patient's awaiting a liver biopsy. Currently, he has no major complaints. He denies any shortness of breath, chest pain or chest discomfort, fever, chills, cough, or phlegm production. The results of the computed tomography scan and bone scan were shared with the patient. I did mention to him that the determination of treatment options depend on the type of cancer that is proven. This can only be done with a biopsy. Interventional radiology is planning to biopsy one of the liver lesions. White count 58.5, hemoglobin 12.5, hematocrit 38.5, and platelet count 263,000. PTT is 47.7. Sodium 139, potassium 3.9, chlorides 110, CO2 20, BUN is 20, and creatinine is 0.68. Calcium is 10.7. Albumin 2.9. Objective - Vital Signs Vital signs: Vital Signs Temp 97.6 F 10/06/20 08:00 Pulse 77 10/06/20 13:29 Resp 18 10/06/20 14:00 BP 137/78 10/06/20 12:00 Pulse Ox 93 L 10/06/20 13:00 Intake & Output 10/05/20 10/06/20 10/06/20 18:59 06:59 18:59 Intake Total 790 248.933 Output Total 800 225 Balance -10 248.933 -225 Weight 107.5 kg Intake: Intake, IV Titration 250 8.933 Amount Heparin Sod,Pork in 0.45% 250 8.933 NaCl 25,000 unit In 0.45 % NaCl 1 250ml.bag @ 9.19 UNITS/KG/HR 10.004 mls/ hr IV .Q24H [facility] Rx#: [id number] Oral 540 240 Output: Urine 800 225 Other: Voiding Method Urinal Bedside Commode Urinal # Voids 1 1 - Exam No acute distress, oriented 3. Saturations are 95% on 2 L nasal O2. HEENT examination is grossly unremarkable. Mucous membranes are moist. No oral lesions. Neck supple. Full range of motion. No adenopathy thyromegaly or neck vein d istention. Cardiovascular examination reveals regular rhythm rate. S1-S2 normal. No S3 or S4. No discernible murmur noted. Heart rate 77 bpm. Lungs reveal clear breath sounds. Her sounds are equal bilaterally. No adventitious lung sounds including wheezes rhonchi or crackles. Abdomen soft bowel sounds are heard. No masses or tenderness. Extremities are intact. No cyanosis clubbing or edema. Skin is without rash or lesion. Neurologic examination is brief but nonfocal. - Labs CBC & Chem 7: 10/06/20 03:11 10/06/20 03:11 Labs: Abnormal Lab Results - Last 24 Hours (Table) 10/05/20 10/05/2010/05/21 Range/Units 19:44 19:44 19:48 WBC (3.8-10.6) k/uL RBC (4.30-5.90) m/uL Hgb (13.0-17.5) gm/dL Hct (39.0-53.0) % MCV (80.0-100.0) fL Neutrophils # (1.3-7.7) k/uL Lymphocytes # (1.0-4.8) k/uL Monocytes # (0-1.0) k/uL Basophils # (0-0.2) k/uL APTT 37.7 H (22.0-30.0) sec Chloride 109 H (98-107) mmol/L Carbon Dioxide (22-30) mmol/L BUN 21 H (9-20) mg/dL Glucose 148 H (74-99) mg/dL POC Glucose (mg/dL) 136 H (75-99) mg/dL Calcium 10.9 H (8.4-10.2) mg/dL Alkaline Phosphatase 239 H (38-126) U/L Total Protein 5.8 L (6.3-8.2) g/dL Albumin 2.8 L (3.5-5.0) g/dL 10/06/20 10/06/20 10/06/20 Range/Units 03:11 03:11 03:11 WBC 58.5 H* (3.8-10.6) k/uL RBC 3.84 L (4.30-5.90) m/uL Hgb 12.5 L (13.0-17.5) gm/dL Hct 38.5 L (39.0-53.0) % MCV 100.2 H (80.0-100.0) fL Neutrophils # 55.8 H (1.3-7.7) k/uL Lymphocytes # 0.6 L (1.0-4.8) k/uL Monocytes # 1.3 H (0-1.0) k/uL Basophils # 0.5 H (0-0.2) k/uL APTT 47.7 H (22.0-30.0) sec Chloride 110 H (98-107) mmol/L Carbon Dioxide 20 L (22-30) mmol/L BUN (9-20) mg/dL Glucose 149 H (74-99) mg/dL POC Glucose (mg/dL) (75-99) mg/dL Calcium 10.7 H (8.4-10.2) mg/dL Alkaline Phosphatase 273 H (38-126) U/L Total Protein 5.9 L (6.3-8.2) g/dL Albumin 2.9 L (3.5-5.0) g/dL 10/06/20 10/06/20 10/06/20 Range/Units 06:03 11:43 16:37 WBC (3.8-10.6) k/uL RBC (4.30-5.90) m/uL Hgb (13.0-17.5) gm/dL Hct (39.0-53.0) % MCV (80.0-100.0) fL Neutrophils # (1.3-7.7) k/uL Lymphocytes # (1.0-4.8) k/uL Monocytes # (0-1.0) k/uL Basophils # (0-0.2) k/uL APTT (22.0-30.0) sec Chloride (98-107) mmol/L Carbon Dioxide (22-30) mmol/L BUN (9-20) mg/dL Glucose (74-99) mg/dL POC Glucose (mg/dL) 141 H 171 H 194 H (75-99) mg/dL Calcium (8.4-10.2) mg/dL Alkaline Phosphatase (38-126) U/L Total Protein (6.3-8.2) g/dL Albumin (3.5-5.0) g/dL Microbiology - Last 24 Hours (Table) 10/02/20 18:06 Blood Culture - Preliminary Blood No Growth after 72 hours Assessment and Plan Assessment: Diffuse thoracic/mediastinal adenopathy, 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 Multiple metastatic deposits noted in the liver and bony structures. Deep vein thrombosis, left lower extremity. Prior history of COVID 19 infection, June 2020. History of mild asymptomatic COPD. Prior history of tobacco use. History of CAD, with previous bypass grafting, and stent. Status post stenting of abdominal aortic aneurysm. Prior history of cardiac arrest in our office, requiring brief CPR. Hypercalcemia, thought to be related to underlying malignancy. Plan: Plan dated 10/05/2020. The patient will eventually need a liver biopsy to be performed by [facility]. If nondiagnostic, we might consider bronchoscopy and transbronchial needle aspiration of the thoracic nodes. The patient is being treated for his hypercalcemia. He understands the seriousness of the problem. Interventional radiology is waiting a couple days because the patient was on a factor X a inhibitor. We will continue to follow. Prognosis is guarded. Plan dated 10/06/2020. The patient's calcium is down to 10.7. The patient is to have a liver biopsy performed by intervention[facility] radiology. I believe is going to be done on . Additional recommendations and suggestions are forthcoming. Currently, the patient stable. Patient currently is on a heparin drip. Patient was previously on a factor X a inhibitor. Prognosis is guarded. All questions are answered. Time with Patient: Less than 30
[2020-10-06] MEDS: ACETAMINOPHEN TAB 325 MG TAB PO PRN (17:49)
[2020-10-06 20:35] LABS: Glucose,Whole Blood 146 mg/dL (75-99)
[2020-10-06] MEDS: NON FORMULARY DRUG (Acetaminophen/Diphenhydramine [Tylenol Pm 500-25mg] 1 EACH Tablet) PO SCH (20:40)
[2020-10-06] MEDS: ATORVASTATIN 10 MG TAB PO SCH (20:46)
[2020-10-06] MEDS: METOPROLOL TARTRATE 50 MG TAB PO SCH (20:46)
[2020-10-06] MEDS: TEMAZEPAM 15 MG CAP PO PRN (22:53)
[2020-10-06] MEDS: HEPARIN SOD,PORK IN 0.45% NACL 25,000 UNIT in 0.45% NACL 1 250ML.BAG IV SCH (22:53)
[2020-10-07] MEDS: HEPARIN SOD,PORK IN 0.45% NACL 25,000 UNIT in 0.45% NACL 1 250ML.BAG IV SCH (03:09)
[2020-10-07] MEDS: SODIUM CHLORIDE 0.9% 1,000 ML IV SCH ×3 (03:09→15:29)
[2020-10-07] MEDS: ACETAMINOPHEN TAB 325 MG TAB PO PRN ×2 (03:12→13:28)
[2020-10-07] MEDS: ALPRAZolam 0.25 MG TAB PO PRN (04:06)
[2020-10-07 06:17] LABS: Glucose,Whole Blood 152 mg/dL (75-99)
[2020-10-07] MEDS: INSULIN ASPART (NovoLOG) 100 UNIT/ML VIAL SQ SCH ×4 (06:25→21:20)
[2020-10-07] MEDS: SENNOSIDES 8.6 MG TAB PO SCH ×2 (08:13→21:15)
[2020-10-07] MEDS: methylPREDNISolone SOD SUCCI 40 MG/ML 1 ML VIAL IV SCH ×2 (08:13→17:42)
[2020-10-07] MEDS: PANTOPRAZOLE 40 MG/10 ML VIAL IVP SCH (08:13)
[2020-10-07] MEDS: MULTIVITAMINS, THERA 1 EACH TAB PO SCH (08:13)
[2020-10-07] MEDS: FLUCONAZOLE IN NACL,ISO-OSM 100 MG in SALINE 1 50ML.BAG IVPB SCH (08:13)
[2020-10-07] MEDS: FOLIC ACID 1 MG TAB PO SCH (08:14)
[2020-10-07] MEDS: ERGOCALCIFEROL 1,250 MCG (50,000 IU) CAPSULE PO SCH (08:14)
[2020-10-07] MEDS: LACTOBACILLUS ACIDOPH & BULGAR 1 EACH PACKET PO SCH (08:14)
[2020-10-07] MEDS: METOPROLOL TARTRATE 50 MG TAB PO SCH ×2 (08:14→21:15)
[2020-10-07] MEDS: THIAMINE 100 MG TAB PO SCH (08:14)
[2020-10-07] MEDS: AZITHROMYCIN 500 MG TAB PO SCH (08:14)
[2020-10-07] MEDS: NYSTATIN 100,000 UNIT/ML SUSP 500,000 UNIT/5 ML CUP PO SCH ×4 (08:14→21:35)
[2020-10-07] MEDS: NON FORMULARY DRUG (Vitamin B Complex [Vitamin B Complex] 1 EACH Capsule) PO SCH (08:15)
[2020-10-07] MEDS: HYDROcodone/APAP 5-325MG 1 EACH TAB PO PRN (08:27)
[2020-10-07] MEDS: IPRATROPIUM-ALBUTEROL 3 ML NEB INHALATION SCH ×3 (08:31→20:32)
[2020-10-07 10:46] LABS: HCT 36.5 % (39.0-53.0); HGB 12.2 gm/dL (13.0-17.5); MCH 33.2 pg (25.0-35.0); MCHC 33.4 g/dL (31.0-37.0); MCV 99.4 fL (80.0-100.0); Mean Platelet Volume 7.8; Platelet Count 284 k/uL (150-450); RBC 3.68 m/uL (4.30-5.90); RDW 13.8 % (11.5-15.5)
[2020-10-07 10:57] LABS: WBC 65.5 k/uL (3.8-10.6)
[2020-10-07 11:27] LABS: Band Neutrophils % 3 %; Lymphocytes # (M) 1.31 k/uL (1.0-4.8); Monocytes # (M) 1.97 k/uL (0-1.0); Neutrophils % (M) 92 %; Nucleated Red Blood Cells 0 /100 WBC (0-0); Total Cells Counted 100
[2020-10-07 11:28] LABS: Anisocytosis (M) Present; Poikilocytosis (M) Present; Toxic Granulation Present; Toxic Vacuolation Present
[2020-10-07 11:51] LABS: Glucose,Whole Blood 166 mg/dL (75-99)
[2020-10-07] MEDS ORDERED: MAGNESIUM HYDROXIDE 2,400 MG/10 ML CUP PO PRN (12:20)
--- NOTE | 2020-10-07 12:20 | P.PN ---
Subjective Progress Note Date: 10/07/20 Principal diagnosis: Liver lesions, hilar and mediastinal lymphadenopathy, bone lesions In follow-up today patient's is at the bedside. Patient was getting up with physical therapy, he required some assistance to get sitting up out of bed, he was able to stand the bedside with a walker and he did ambulate. No acute complaints. Persistent generalized weakness. No fevers, oral irritation, nausea, vomiting, difficulty in breathing, he does get short of breath with exer tion, no acute changes in bowel or bladder habits. Objective - Vital Signs Vital signs: Vital Signs Temp 97.8 F 10/07/20 08:00 Pulse 78 10/07/20 08:43 Resp 18 10/07/20 08:00 BP 162/92 10/07/20 08:00 Pulse Ox 94 L 10/07/20 08:00 Intake & Output 10/06/20 10/07/20 10/07/20 18:59 06:59 18:59 Intake Total 241.067 480 Output Total 225 400 300 Balance 16.067 80 -300 Weight 108.2 kg Intake: Intake, IV Titration 241.067 Amount Heparin Sod,Pork in 0.45% 241.067 NaCl 25,000 unit In 0.45 % NaCl 1 250ml.bag @ 9.19 UNITS/KG/HR 10.004 mls/ hr IV .Q24H [facility] Rx#: [id number] Oral 480 Output: Urine 225 400 300 Other: Voiding Method Bedside Commode Urinal # Voids 1 1 - Constitutional General appearance: Present: cooperative, morbidly obese, no acute distress - EENT Eyes: Present: anicteric sclerae, edentulous ENT: Present: hearing grossly normal - Respiratory Respiratory: bilateral: CTA - Cardiovascular Heart sounds: normal: S1, S2 - Peripheral edema leg Peripheral Edema: bilateral: 1+ - Gastrointestinal General gastrointestinal: Present: soft - Neurologic Neurologic: Present: CNII-XII intact - Musculoskeletal Musculoskeletal: Present: generalized weakness - Psychiatric Psychiatric: Present: A&O x's 3 - Labs CBC & Chem 7: 10/07/20 10:07 10/06/20 03:11 Labs: Abnormal Lab Results - Last 24 Hours (Table) 10/06/20 10/06/20 10/07/20 Range/Units 16:37 20:33 03:45 WBC (3.8-10.6) k/uL RBC (4.30-5.90) m/uL Hgb (13.0-17.5) gm/dL Hct (39.0-53.0) % Neutrophils # (Manual) (1.3-7.7) k/uL Monocytes # (Manual) (0-1.0) k/uL APTT 50.0 H (22.0-30.0) sec POC Glucose (mg/dL) 194 H 146 H (75-99) mg/dL 10/07/20 10/07/20 10/07/20 Range/Units 06:16 10:07 11:49 WBC 65.5 H* (3.8-10.6) k/uL RBC 3.68 L (4.30-5.90) m/uL Hgb 12.2 L (13.0-17.5) gm/dL Hct 36.5 L (39.0-53.0) % Neutrophils # (Manual) 62.20 H (1.3-7.7) k/uL Monocytes # (Manual) 1.97 H (0-1.0) k/uL APTT (22.0-30.0) sec POC Glucose (mg/dL) 152 H 166 H (75-99) mg/dL Microbiology - Last 24 Hours (Table) 10/02/20 18:06 Blood Culture - Preliminary Blood No Growth after 96 hours Assessment and Plan (1) Hypercalcemia Narrative/Plan: Calcium ordered for this morning. Aredia 2 doses given. Highly suspicious for hypercalcemia secondary to malignancy. Current Visit: Yes Status: Acute Priority: High Code(s): E83.52 - HYPERCALCEMIA SNOMED Code(s): 09033172 (2) Liver lesion Current Visit: Yes Status: Acute Priority: High Code(s): K76.9 - LIVER DISEASE, UNSPECIFIED SNOMED Code(s): 144786616 (3) Pulmonary nodule Current Visit: Yes Status: Acute Priority: High Code(s): R91.1 - SOLITARY PULMONARY NODULE SNOMED Code(s): 587658411 (4) Thrush Narrative/Plan: Patient continues on treatment for the same. Current Visit: Yes Status: Acute Priority: Medium Code(s): B37.0 - CANDIDAL STOMATITIS SNOMED Code(s): 43136248 Plan: Patient received aspirin 10/03. This is on hold. Plan is for liver biopsy, I see a date documented of Monday10/12/20. I explained to patient and his that follow-up with Oncology would be 5-7 days after biopsy for diagnosis based on pathology results. Also, Oncologist would be able to offer prognosis and treatment options. Review the case with the Attending. Patient is on a heparin drip for a right lower extremity DVT found on admission. She was on eliquis at that time. Antic oagulation recommendations will follow Still no documented BM, continue senna BID. Would recommend possibly a dose of local bank. This is been added to be used when necessary
--- NOTE | 2020-10-07 15:42 | P.PN ---
Subjective HISTORY OF PRESENT ILLNESS: 10/03/2020 This is a 70-year-old male with a past medical history significant for COPD, hypertension, hyperlipidemia, AAA, coronary artery disease with previous CABG and stenting, and former nicotine dependence. Patient follows in the office with Dr. Esteves. We have been asked to see the patient in consultation for elevated troponins. Patient examined at the bedside. Patient presented to the hospital secondary to increasing fatigue. Patient states him and his both had Covid in June 2020. He reports that she improved and got better but he states he has not. He reports extreme weakness and states his has been helping to take care of him at home. The patient currently denies any chest pain or pressure. He does report shortness of breath with exertion. He states he used to smoke 2 packs per day and quit in 2014. EKG reveals sinus mechanism with no signs of acute ischemia. Chest xray patchy changes continuing the periphery of the right upper to mid lung and may be part and chronic. Subtle infiltrate difficult excluded. Underlying COPD. Chest CTA: Negative for pulmonary emboli sm. A right apical and posterior right lower lung mass. Abdomen CT and pelvis: Numerous liver lesions suggestive of metastatic disease. Laboratory data: WBC 44.4. Hemoglobin 13.6. Platelet count 262. Sodium 135. Potassium 4.4. BUN 17. Creatinine 0.76. Troponin 0.109. 0.115. 0.122. Current home cardiac medications include simvastatin 20 mg daily, metoprolol tartrate 25 mg twice a day, aspirin 81 mg daily, Eliquis 5 mg twice a day Most recent echocardiogram obtained reveals ejection fraction 50-55%. Basal inferior LV wall hypokinesis Venous Dopplers- 10/02/20: Limited DVT in the left lower leg 10/06/2020 Patient examined this morning at the bedside. Patient denies chest pain or pres sure. He reports shortness of breath and palpitations. He continues to feel weak, but feels more weak today. He does feel down due to his current health state. Blood pressure 137/78, HR 81, afebrile, on 2L nasal cannula. Currently being maintained on IV heparin, atorvastatin 10 mg daily, metoprolol tartrate 25 mg twice a day. Laboratory data reviewed, WBC increasing 58.5, hemoglobin stable at 12.5, platelets 263, sodium 139, potassium 3.9, serum creatinine 0.68, AST 44, ALT 41, alk phos 273, TSH 0.7. Telemetry reviewed patient was in sinus mechanism yesterday, but today is now back in atrial fibrillation with RVR HR 120s-130s. Patient also complaining of constipation, no bowel movement for 5 days. 10/07/20; Patient seen and examined this morning. Sitting up and touch no acute distress, states he feels much better shortness of breath has improved. Blood pressure 143/81, heart rate 70s, maintaining oxygen saturations on 3 L nasal cannula, afebrile. Patient went into atrial fibrillation RVR yesterday metoprolol titrate was increased to 50 mg twice a day. Telemetry reviewed patient in atrial fibrillation HR 80s-90s, low 100s occasionally. PHYSICAL EXAM: VITAL SIGNS: Reviewed. GENERAL: No acute distress, appears fatigued. HEENT: No JVD or thyromegaly LUNGS: Respirations even and unlabored. Lungs diminished bilaterally. HEART: Regular rate and rhythm. S1 and S2 heard. Soft systolic murmur noted. ABDOMEN: Soft. Nondistended. Nontender. EXTREMITIES: Normal range of motion. No clubbing or cyanosis. Peripheral pulses intact. No lower extremity edema NEUROLOGIC: Awake and alert. Oriented x 3. ASSESSMENT: Generalized weakness DVT Left lower leg Right apical and posterior right lower lobe lung mass, per CTA Numerous liver lesions, suggestive of metastatic disease per CT History of CovJune 2020 Abnormal troponins, not indicative of myocardial injury Coronary artery disease with previous stenting and CABG 2011 Paroxysmal atrial fibrillation, on anticoagulation with Eliquis - currently on hold and patient on heparin drip for DVT History of AAA, status post endovascular repair Hypertension Hyperlipidemia History of nicotine dependence, patient smoked 2 packs per day and quit in 2014 PLAN: Will continue metoprolol tartrate 50mg BID- will increase as tolerated Continue cardiac telemetry. Patient started on senna BID for constipation Patient on heparin drip for DVT Oncology following Pulmonary Following Further recommendations pending patient's course Nurse practitioner note has been reviewed by physician. Signing provider agrees with the documented findings, assessment, and plan of care. Objective - Vital Signs Vital signs: Vital Signs Temp 97.8 F 10/07/20 12:00 Pulse 79 10/07/20 14:00 Resp 18 10/07/20 14:00 BP 143/81 10/07/20 12:00 Pulse Ox 97 10/07/20 12:00 Intake & Output 10/06/20 10/07/20 10/07/20 18:59 06:59 18:59 Intake Total 241.067 480 240 Output Total 225 400 300 Balance 16.067 80 -60 Weight 108.2 kg Intake: Intake, IV Titration 241.067 Amount Heparin Sod,Pork in 0.45% 241.067 NaCl 25,000 unit In 0.45 % NaCl 1 250ml.bag @ 9.19 UNITS/KG/HR 10.004 mls/ hr IV .Q24H [facility] Rx#: [id number] Oral 480 240 Output: Urine 225 400 300 Other: Voiding Method Bedside Commode Urinal # Voids 1 1 1 - Labs CBC & Chem 7: 10/07/20 10:07 10/06/20 03:11 Labs: Abnormal Lab Results - Last 24 Hours (Table) 10/06/20 10/06/20 10/07/20 Range/Units 16:37 20:33 03:45 WBC (3.8-10.6) k/uL RBC (4.30-5.90) m/uL Hgb (13.0-17.5) gm/dL Hct (39.0-53.0) % Neutrophils # (Manual) (1.3-7.7) k/uL Monocytes # (Manual) (0-1.0) k/uL APTT 50.0 H (22.0-30.0) sec POC Glucose (mg/dL) 194 H 146 H (75-99) mg/dL 10/07/20 10/07/20 10/07/20 Range/Units 06:16 10:07 11:49 WBC 65.5 H* (3.8-10.6) k/uL RBC 3.68 L (4.30-5.90) m/uL Hgb 12.2 L (13.0-17.5) gm/dL Hct 36.5 L (39.0-53.0) % Neutrophils # (Manual) 62.20 H (1.3-7.7) k/uL Monocytes # (Manual) 1.97 H (0-1.0) k/uL APTT (22.0-30.0) sec POC Glucose (mg/dL) 152 H 166 H (75-99) mg/dL Microbiology - Last 24 Hours (Table) 10/02/20 18:06 Blood Culture - Preliminary Blood No Growth after 96 hours
[2020-10-07 16:22] LABS: Glucose,Whole Blood 152 mg/dL (75-99)
--- NOTE | 2020-10-07 17:10 | P.PN ---
Subjective Progress Note Date: 10/07/20 Principal diagnosis: Elevated troponin. This is a 70-year-old white male familiar to my service. with history of multiple medical problems including coronary artery disease and previous CABG and stent placement. History of abdominal aortic aneurysm and previous stent placement, history of hypertension, mild asymptomatic COPD, remote smoking history quit smoking over 20 years ago. Patient normally sees me on a regular basis in the office, and I saw this patient basically about a month ago. Patient was recovering from Covid 19 infection which she had in June, and did not require any hospitalization. When I saw him about a month ago, follow- up chest x-ray was done in the office, and it was basically unremarkable. The chest x-ray was dated 09/03/2020, and it showed peripheral increased lung markings, chronic changes stable and it was compared to the chest x-ray that was done on 06/27/2020. On that specific chest x-ray, there was no suspicion of any findings to suggest malignancy. On 10/02/2020, patient was seen in the ER, and he had multiple constitutional symptoms including weakness, unable to ambulate, patient has been losing weight over the last month or so. A chest x-ray was done questioned some nodularity in the left lung, and after I reviewed the chest x-ray I recommended a CT angiogram of the chest. This came back quite abnormal showing extensive enlargement of lymph nodes throughout the mediastinum and right hilar region it also showed right apical and posterior right lower nodules. It also showed extensive multiple hypodense lesions within the liver compatible with metastasis. Patient had no previous history of malignancy. And over the years he declined having colonoscopy. Patient smoked until about 20 years ago, and he had family history of lung cancer./Father. Considering the findings on the CT of the chest and on the chest x-ray, I was asked to see this patient on consultation. Venous Doppler on this admission showed limited deep vein thromboses in the left lower extremity. CT of the abdomen and pelvis showed mostly numerous liver lesions suggestive of metastatic disease. Reevaluated today on 10/04/2020, patient continues to feel weakness. Denies any cough, no fever, no chills, no hemoptysis. Continues to have leukocytosis with WBC count of 48.2 hemoglobin is 12.1. Remains on heparin for his deep vein thrombosis, calcium is down to 11.2 from 12.6 yesterday. Ionized calcium yesterday was 6.7. Pro-calcitonin is 0.55, patient remains empirically on antibiotics in the form of Rocephin and Zithromax. Blood cultures and sputum cultures are negative so far since admission. Patient is supposedly scheduled to have CT guided liver biopsy or ultrasound guided liver biopsy tomorrow however he is on heparin and that has to be put on hold for 2 hours prior to the procedure. today is at bedside, and I discu ssed his condition with the at bedside. And explained to her that we are working him up for possible metastatic disease. Primary remains unknown, but I'm suspecting that we may be dealing with small cell lung cancer. Progress note dated 10/05/2020. This is a 70-year-old male, who sees my partner as a primary. He has a history of multiple medical problems including coronary artery disease, with previous bypass grafting, and stent placement, abdominal aortic aneurysm, with previous stent placement, hypertension, mild asymptomatic COPD, and a remote history of tobacco use. The patient did have COVID 19 infection in June. More recently, he is currently being evaluated for possible malignancy, may be lung cancer. The CT that was done showed extensive enlargement of lymph nodes throughout the mediastinum and right hilar region, and, it was discovered that he had metastatic deposits and multiple bony areas, and in the liver. Dr. Heck was concerned about small cell lung cancer. The only new labs today or a PT of 11.7, INR 1.1, PTT of 44.2. The patient had recently been on a factor X a inhibitor. The bone scan showed potential metastatic deposits in the left posterior 10th rib, inferior right scapula, and subtrochanteric right femur. In addition, there is an abnormal signal in the calvarium. Progress note dated 10/06/2020. 70-year-old gentleman, currently being evaluated for possible metastatic colon cancer. Currently, the patient's awaiting a liver biopsy. Currently, he has no major complaints. He denies any shortness of breath, chest pain or chest discomfort, fever, chills, cough, or phlegm production. The results of the computed tomography scan and bone scan were shared with the patient. I did mention to him that the determination of treatment options depend on the type of cancer that is proven. This can only be done with a biopsy. Interventional radiology is planning to biopsy one of the liver lesions. White count 58.5, hemoglobin 12.5, hematocrit 38.5, and platelet count 263,000. PTT is 47.7. Sodium 139, potassium 3.9, chlorides 110, CO2 20, BUN is 20, and creatinine is 0.68. Calcium is 10.7. Albumin 2.9. Progress note dated 10/07/2020. 70-year-old gentleman, currently being evaluated for possible metastatic lung cancer. The patient is awaiting a liver biopsy. The patient was previously on a factor X a inhibitor, and also aspirin. Apparently, interventional radiology does not want to do liver biopsy until October 12, which is this upcoming Monday. The patient doesn't really want to sit in the hospital until then, and I was wondering whether or not it would be okay to send him home on Lovenox subcu twice a day as a bridge, so that he could still get his liver biopsy on Monday. Apparently that will be explored by the primary service tomorrow. Currently he is on 3 L nasal cannula. White count of 65.5, hemoglobin 12.2, hematocrit 36.5, and platelet count is 284,000. Objective - Vital Signs Vital signs: Vital Signs Temp 97.8 F 10/07/20 12:00 Pulse 79 10/07/20 14:00 Resp 18 10/07/20 14:00 BP 143/81 10/07/20 12:00 Pulse Ox 97 10/07/20 12:00 Intake & Output 10/06/20 10/07/20 10/07/20 18:59 06:59 18:59 Intake Total 241.067 480 240 Output Total 225 400 300 Balance 16.067 80 -60 Weight 108.2 kg Intake: Intake, IV Titration 241.067 Amount Heparin Sod,Pork in 0.45% 241.067 NaCl 25,000 unit In 0.45 % NaCl 1 250ml.bag @ 9.19 UNITS/KG/HR 10.004 mls/ hr IV .Q24H [facility] Rx#: [id number] Oral 480 240 Output: Urine 225 400 300 Other: Voiding Method Bedside Commode Urinal # Voids 1 1 1 - Exam No acute distress, oriented 3. Saturations are 95% on 3 L nasal O2. HEENT examination is grossly unremarkable. Mucous membranes are moist. No oral lesions. Neck supple. Full range of motion. No adenopathy thyromegaly or neck vein distention. Cardiovascular examination reveals regular rhythm rate. S1-S2 normal. No S3 or S4. No discernible murmur noted. Heart rate 79 bpm. Lungs reveal clear breath sounds. Her sounds are equal bilaterally. No a dventitious lung sounds including wheezes rhonchi or crackles. Abdomen soft bowel sounds are heard. No masses or tenderness. Extremities are intact. No cyanosis clubbing or edema. Skin is without rash or lesion. Neurologic examination is brief but nonfocal. - Labs CBC & Chem 7: 10/07/20 10:07 10/06/20 03:11 Labs: Abnormal Lab Results - Last 24 Hours (Table) 10/06/20 10/07/20 10/07/20 Range/Units 20:33 03:45 06:16 WBC (3.8-10.6) k/uL RBC (4.30-5.90) m/uL Hgb (13.0-17.5) gm/dL Hct (39.0-53.0) % Neutrophils # (Manual) (1.3-7.7) k/uL Monocytes # (Manual) (0-1.0) k/uL APTT 50.0 H (22.0-30.0) sec POC Glucose (mg/dL) 146 H 152 H (75-99) mg/dL 10/07/20 10/07/20 10/07/20 Range/Units 10:07 11:49 16:20 WBC 65.5 H* (3.8-10.6) k/uL RBC 3.68 L (4.30-5.90) m/uL Hgb 12.2 L (13.0-17.5) gm/dL Hct 36.5 L (39.0-53.0) % Neutrophils # (Manual) 62.20 H (1.3-7.7) k/uL Monocytes # (Manual) 1.97 H (0-1.0) k/uL APTT (22.0-30.0) sec POC Glucose (mg/dL) 166 H 152 H (75-99) mg/dL Microbiology - Last 24 Hours (Table) 10/02/20 18:06 Blood Culture - Preliminary Blood No Growth after 96 hours Assessment and Plan Assessment: Diffuse thoracic/mediastinal adenopathy, 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 Multiple metastatic deposits noted in the liver and bony structures. Deep vein thrombosis, left lower extremity. Prior history of COVID 19 infection, June 2020. History of mild asymptomatic COPD. Prior history of tobacco use. History of CAD, with previous bypass grafting, and stent. Status post stenting of abdominal aortic aneurysm. Prior history of cardiac arrest in our office, requiring brief CPR. Hypercalcemia, thought to be related to underlying malignancy. Plan: Plan dated 10/05/2020. The patient will eventually need a liver biopsy to be performed by interventional radiology. If nondiagnostic, we might consider bronchoscopy and transbronchial needle aspiration of the thoracic nodes. The patient is being treated for his hypercalcemia. He understands the seriousness of the problem. Interventional radiology is waiting a couple days because the patient was on a factor X a inhibitor. We will continue to follow. Prognosis is guarded. Plan dated 10/06/2020. The patient's calcium is down to 10.7. The patient is to have a liver biopsy performed by interventional radiology. I believe is going to be done on . Additional recommendations and suggestions are forthcoming. Currently, the patient stable. Patient currently is on a heparin drip. Patient was previously on a factor X a inhibitor. Prognosis is guarded. All questions are answered. Plan dated 10/07/2020. Apparently physical therapy told the family, that the patient was stable enough to be discharged home because he can manage himself at home. The patient would like to go home rather than sit in the hospital over the next 5 days when he for the liver biopsy on October 12. He is currently on IV heparin. The patient could be transitioned to subcutaneous Lovenox twice a day, until his liver biopsy will be performed on October 12. His overall prognosis is poor given the extent of what appears to be significantly metastatic disease. We will continue to follow. I did alert the logistics planner/case coordinator. Time with Patient: Less than 30
--- NOTE | 2020-10-07 19:46 | PN ---
PROGRESS NOTE DATE OF SERVICE: 10/07/2020 INTERVAL HISTORY: This is a 70-year-old gentleman who was admitted with shortness of breath and weakness, possibly had multiple lung METS and multiple other medical issues also. The cultures for his Kayla albicans grown from the sputum. Patient is on antifungals. Multiple consultants are following the patient closely. biopsy. PAST MEDICAL HISTORY: Reviewed. REVIEW OF SYSTEMS: CARDIOVASCULAR: No angina. RESPIRATORY: As mentioned earlier. GI: As mentioned earlier. : No dysuria. NERVOUS SYSTEM: No numbness or weakness. CURRENT MEDICATIONS: Tylenol, Leroy, DuoNeb, Xanax, Lipitor, Zithromax ,Rocephin, fluconazole, heparin, Lactinex. PHYSICAL EXAM: GENERAL: Patient is alert and oriented times two. VITAL SIGNS: Pulse 79, blood pressure 143/81, respirations 18, temperature 97.8, pulse ox 97% on 3 liters. HEENT: Conjunctivae normal. NECK: No jugular venous distention. No carotid bruits. No lymph node enlargement. RESPIRATORY: Breath sounds diminished at the bases. A few scattered rhonchi. HEART: S1 and S2, muffled. ABDOMEN: Soft, no tenderness. EXTREMITIES: No edema, no swelling. NERVOUS: No focal deficits. LABS: WBC 65.2, hemoglobin 12.2. ASSESSMENT: 1. Shortness of breath, weakness, possibly secondary to multiple lung metastasis and pulmonary malignancy. 2. Right apical posterior and right lower lobe masses with extensive enlargement of the mediastinal lymph nodes and right hilar area, possibly non-small cell carcinoma with metastasis per Dr. Ty. 3. Kayla albicans from the sputum. 4. Possible pneumonia, possibly gram-negative with sepsis, present on admission. 5. Mild hyperdensity in the periphery of the liver, for liver biopsy next week. 6. Leukemoid reaction. 7. Limited deep venous thrombosis of the left lower leg. 8. Recent COVID-19 infection. 9. Gait dysfunction. 10.Troponin 0.10, rule out acute vcr-BW-pxdrqni-elevation myocardial infarction. 11.Increased WBC. 12.Elevated D-dimer without any evidence of pulmonary embolism. 13.Hypertension. 14.Hypercalcemia. 15.Increased alkaline phosphatase. 16.Tachycardia and premature ventricular contractions. 17.History of asthma, chronic obstructive pulmonary disease. 18.Hyperlipidemia. 19.History of myocardial infarction. 20.History of abdominal aortic aneurysm. 21.History of CAD, CABG stent. 22.History of nicotine dependence. 23.Obesity with body mass index of 31.7. RECOMMENDATIONS AND DISCUSSION: Recommend to continue current management and continue symptomatic treatment. Otherwise, continue with antifungals, antibiotics. Continue with steroids. Otherwise, await evaluation by multiple consultants. PT OT evaluation. Guarded prognosis because of multiple complex medical issues. Further recommendations to follow. MMODL / IJN: [id number] / TABATHA
[2020-10-07 19:57] LABS: Glucose,Whole Blood 213 mg/dL (75-99)
[2020-10-07] MEDS: ATORVASTATIN 10 MG TAB PO SCH (21:16)
[2020-10-07] MEDS: HYDROmorphone 0.5 MG/0.5 ML SYRINGE IVP PRN (21:16)
[2020-10-07] MEDS: TEMAZEPAM 15 MG CAP PO PRN (21:34)
[2020-10-08] MEDS: NON FORMULARY DRUG (Acetaminophen/Diphenhydramine [Tylenol Pm 500-25mg] 1 EACH Tablet) PO SCH ×2 (00:04→21:28)
[2020-10-08] MEDS: HEPARIN SOD,PORK IN 0.45% NACL 25,000 UNIT in 0.45% NACL 1 250ML.BAG IV SCH ×2 (00:06→20:36)
[2020-10-08] MEDS: methylPREDNISolone SOD SUCCI 40 MG/ML 1 ML VIAL IV SCH ×3 (00:06→16:16)
[2020-10-08] MEDS: HYDROmorphone 0.5 MG/0.5 ML SYRINGE IVP PRN ×2 (03:10→14:52)
[2020-10-08] MEDS: ALPRAZolam 0.25 MG TAB PO PRN (03:10)
[2020-10-08] MEDS: SODIUM CHLORIDE 0.9% 1,000 ML IV SCH ×2 (04:14→12:19)
[2020-10-08 06:06] LABS: Glucose,Whole Blood 143 mg/dL (75-99)
[2020-10-08] MEDS: INSULIN ASPART (NovoLOG) 100 UNIT/ML VIAL SQ SCH ×4 (06:55→21:27)
[2020-10-08 07:13] LABS: Basophils # (A) 1.9 k/uL (0-0.2); Basophils % (A) 3 %; Eosinophils # (A) 0.4 k/uL (0-0.7); Eosinophils % (A) 1 %; Lymphocytes % (A) 0 %; MCH 32.2 pg (25.0-35.0); MCHC 32.3 g/dL (31.0-37.0); MCV 99.8 fL (80.0-100.0); Monocytes # (A) 1.1 k/uL (0-1.0); Monocytes % (A) 2 %; Neutrophils # (A) 70.5 k/uL (1.3-7.7); Neutrophils % (A) 96 %; Platelet Count 293 k/uL (150-450); RBC 3.71 m/uL (4.30-5.90)
[2020-10-08 07:18] LABS: WBC 73.8 k/uL (3.8-10.6)
[2020-10-08] MEDS: NON FORMULARY DRUG (Vitamin B Complex [Vitamin B Complex] 1 EACH Capsule) PO SCH (09:01)
[2020-10-08] MEDS: IPRATROPIUM-ALBUTEROL 3 ML NEB INHALATION SCH ×3 (09:40→19:15)
[2020-10-08] MEDS: METOPROLOL TARTRATE 50 MG TAB PO SCH ×2 (10:44→21:26)
[2020-10-08] MEDS: LACTOBACILLUS ACIDOPH & BULGAR 1 EACH PACKET PO SCH ×2 (10:44→11:14)
[2020-10-08] MEDS: NYSTATIN 100,000 UNIT/ML SUSP 500,000 UNIT/5 ML CUP PO SCH ×4 (10:44→23:03)
[2020-10-08] MEDS: SENNOSIDES 8.6 MG TAB PO SCH ×2 (10:44→21:26)
[2020-10-08] MEDS: ERGOCALCIFEROL 1,250 MCG (50,000 IU) CAPSULE PO SCH (10:44)
[2020-10-08] MEDS: AZITHROMYCIN 500 MG TAB PO SCH (10:45)
[2020-10-08] MEDS: PANTOPRAZOLE 40 MG/10 ML VIAL IVP SCH (10:54)
[2020-10-08 12:02] LABS: Glucose,Whole Blood 127 mg/dL (75-99)
[2020-10-08] MEDS: THIAMINE 100 MG TAB PO SCH (12:18)
[2020-10-08] MEDS: FOLIC ACID 1 MG TAB PO SCH (12:18)
[2020-10-08] MEDS: FLUCONAZOLE IN NACL,ISO-OSM 100 MG in SALINE 1 50ML.BAG IVPB SCH (12:18)
[2020-10-08] MEDS: MULTIVITAMINS, THERA 1 EACH TAB PO SCH (12:18)
--- NOTE | 2020-10-08 14:13 | P.PN ---
Subjective HISTORY OF PRESENT ILLNESS: 10/03/2020 This is a 70-year-old male with a past medical history significant for COPD, hypertension, hyperlipidemia, AAA, coronary artery disease with previous CABG and stenting, and former nicotine dependence. Patient follows in the office with Dr. Esteves. We have been asked to see the patient in consultation for elevated troponins. Patient examined at the bedside. Patient presented to the hospital secondary to increasing fatigue. Patient states him and his both had Covid in June 2020. He reports that she improved and got better but he states he has not. He reports extreme weakness and states his has been helping to take care of him at home. The patient currently denies any chest pain or pressure. He does report shortness of breath with exertion. He states he used to smoke 2 packs per day and quit in 2014. EKG reveals sinus mechanism with no signs of acute ischemia. Chest xray patchy changes continuing the periphery of the right upper to mid lung and may be part and chronic. Subtle infiltrate difficult excluded. Underlying COPD. Chest CTA: Negative for pulmonary emboli sm. A right apical and posterior right lower lung mass. Abdomen CT and pelvis: Numerous liver lesions suggestive of metastatic disease. Laboratory data: WBC 44.4. Hemoglobin 13.6. Platelet count 262. Sodium 135. Potassium 4.4. BUN 17. Creatinine 0.76. Troponin 0.109. 0.115. 0.122. Current home cardiac medications include simvastatin 20 mg daily, metoprolol tartrate 25 mg twice a day, aspirin 81 mg daily, Eliquis 5 mg twice a day Most recent echocardiogram obtained reveals ejection fraction 50-55%. Basal inferior LV wall hypokinesis Venous Dopplers- 10/02/20: Limited DVT in the left lower leg 10/06/2020 Patient examined this morning at the bedside. Patient denies chest pain or pres sure. He reports shortness of breath and palpitations. He continues to feel weak, but feels more weak today. He does feel down due to his current health state. Blood pressure 137/78, HR 81, afebrile, on 2L nasal cannula. Currently being maintained on IV heparin, atorvastatin 10 mg daily, metoprolol tartrate 25 mg twice a day. Laboratory data reviewed, WBC increasing 58.5, hemoglobin stable at 12.5, platelets 263, sodium 139, potassium 3.9, serum creatinine 0.68, AST 44, ALT 41, alk phos 273, TSH 0.7. Telemetry reviewed patient was in sinus mechanism yesterday, but today is now back in atrial fibrillation with RVR HR 120s-130s. Patient also complaining of constipation, no bowel movement for 5 days. 10/08/20; Patient seen and examined this morning. Sitting up and touch no acute distress, states he feels much better shortness of breath has improved. Blood pressure 126/72, heart rate 70s, maintaining oxygen saturations on 4 L nasal cannula, afebrile. Telemetry reviewed patient in atrial fibrillation HR 80s-90s, low 100s occasionally. PHYSICAL EXAM: VITAL SIGNS: Reviewed. GENERAL: No acute distress, appears fatigued. HEENT: No JVD or thyromegaly LUNGS: Respirations even and unlabored. Lungs diminished bilaterally. HEART: Irregulaar rate and rhythm. S1 and S2 heard. Soft systolic murmur noted. ABDOMEN: Soft. Nondistended. Nontender. EXTREMITIES: Normal range of motion. No clubbing or cyanosis. Peripheral pulses intact. No lower extremity edema NEUROLOGIC: Awake and alert. Oriented x 2 ASSESSMENT: Generalized weakness DVT Left lower leg Right apical and posterior right lower lobe lung mass, per CTA Numerous liver lesions, suggestive of metastatic disease per CT History of CovJune 2020 Abnormal troponins, not indicative of myocardial injury Coronary artery disease with previous stenting and CABG 2011 Paroxysmal atrial fibrillation, on anticoagulation with Eliquis - currently on hold and patient on heparin drip for DVT History of AAA, status post endovascular repair Hypertension Hyperlipidemia History of nicotine dependence, patient smoked 2 packs per day and quit in 2014 PLAN: Continue metoprolol tartrate 50mg BID Patient on heparin drip for DVT Oncology following Pulmonary Following No further cardiac recommendations or workup at this time. Nurse practitioner note has been reviewed by physician. Signing provider agrees with the documented findings, assessment, and plan of care. Objective - Vital Signs Vital signs: Vital Signs Temp 97.4 F L 10/08/20 12:55 Pulse 73 10/08/20 13:33 Resp 20 10/08/20 13:33 BP 126/72 10/08/20 12:55 Pulse Ox 90 L 10/08/20 12:55 Intake & Output 10/07/20 10/08/20 10/08/20 18:59 06:59 18:59 Intake Total 240 1450 0 Output Total 300 300 Balance -60 1150 0 Weight 108 kg Intake: Intake, IV Titration 1250 Amount Heparin Sod,Pork in 0.45% 250 NaCl 25,000 unit In 0.45 % NaCl 1 250ml.bag @ 9.19 UNITS/KG/HR 10.004 mls/ hr IV .Q24H [facility] Rx#: [id number] Sodium Chloride 0.9% 1, 1000 000 ml @ 150 mls/hr IV . [id number] [facility] Rx#:[id number] Oral 240 200 0 Output: Urine 300 300 Other: Voiding Method Bedside Commode Bedside Commode Urinal # Voids 1 2 - Labs CBC & Chem 7: 10/08/20 06:29 10/06/20 03:11 Labs: Abnormal Lab Results - Last 24 Hours (Table) 10/07/20 10/07/20 10/08/20 Range/Units 16:20 19:55 05:56 WBC (3.8-10.6) k/uL RBC (4.30-5.90) m/uL Hgb (13.0-17.5) gm/dL Hct (39.0-53.0) % Neutrophils # (1.3-7.7) k/uL Lymphocytes # (1.0-4.8) k/uL Monocytes # (0-1.0) k/uL Basophils # (0-0.2) k/uL APTT (22.0-30.0) sec POC Glucose (mg/dL) 152 H 213 H 143 H (75-99) mg/dL 10/08/20 10/08/20 10/08/20 Range/Units 06:29 06:29 12:00 WBC 73.8 H* (3.8-10.6) k/uL RBC 3.71 L (4.30-5.90) m/uL Hgb 12.0 L (13.0-17.5) gm/dL Hct 37.0 L (39.0-53.0) % Neutrophils # 70.5 H (1.3-7.7) k/uL Lymphocytes # 0.0 L (1.0-4.8) k/uL Monocytes # 1.1 H (0-1.0) k/uL Basophils # 1.9 H (0-0.2) k/uL APTT 64.9 H (22.0-30.0) sec POC Glucose (mg/dL) 127 H (75-99) mg/dL Microbiology - Last 24 Hours (Table) 10/02/20 18:06 Blood Culture - Preliminary Blood No Growth after 120 hours
--- NOTE | 2020-10-08 14:52 | P.PN ---
Subjective Progress Note Date: 10/08/20 Principal diagnosis: Elevated troponin. This is a 70-year-old white male familiar to my service. with history of multiple medical problems including coronary artery disease and previous CABG and stent placement. History of abdominal aortic aneurysm and previous stent placement, history of hypertension, mild asymptomatic COPD, remote smoking history quit smoking over 20 years ago. Patient normally sees me on a regular basis in the office, and I saw this patient basically about a month ago. Patient was recovering from Covid 19 infection which she had in June, and did not require any hospitalization. When I saw him about a month ago, follow- up chest x-ray was done in the office, and it was basically unremarkable. The chest x-ray was dated 09/03/2020, and it showed peripheral increased lung markings, chronic changes stable and it was compared to the chest x-ray that was done on 06/27/2020. On that specific chest x-ray, there was no suspicion of any findings to suggest malignancy. On 10/02/2020, patient was seen in the ER, and he had multiple constitutional symptoms including weakness, unable to ambulate, patient has been losing weight over the last month or so. A chest x-ray was done questioned some nodularity in the left lung, and after I reviewed the chest x-ray I recommended a CT angiogram of the chest. This came back quite abnormal showing extensive enlargement of lymph nodes throughout the mediastinum and right hilar region it also showed right apical and posterior right lower nodules. It also showed extensive multiple hypodense lesions within the liver compatible with metastasis. Patient had no previous history of malignancy. And over the years he declined having colonoscopy. Patient smoked until about 20 years ago, and he had family history of lung cancer./Father. Considering the findings on the CT of the chest and on the chest x-ray, I was asked to see this patient on consultation. Venous Doppler on this admission showed limited deep vein thromboses in the left lower extremity. CT of the abdomen and pelvis showed mostly numerous liver lesions suggestive of metastatic disease. Reevaluated today on 10/04/2020, patient continues to feel weakness. Denies any cough, no fever, no chills, no hemoptysis. Continues to have leukocytosis with WBC count of 48.2 hemoglobin is 12.1. Remains on heparin for his deep vein thrombosis, calcium is down to 11.2 from 12.6 yesterday. Ionized calcium yesterday was 6.7. Pro-calcitonin is 0.55, patient remains empirically on antibiotics in the form of Rocephin and Zithromax. Blood cultures and sputum cultures are negative so far since admission. Patient is supposedly scheduled to have CT guided liver biopsy or ultrasound guided liver biopsy tomorrow however he is on heparin and that has to be put on hold for 2 hours prior to the procedure. today is at bedside, and I discu ssed his condition with the at bedside. And explained to her that we are working him up for possible metastatic disease. Primary remains unknown, but I'm suspecting that we may be dealing with small cell lung cancer. Progress note dated 10/05/2020. This is a 70-year-old male, who sees my partner as a primary. He has a history of multiple medical problems including coronary artery disease, with previous bypass grafting, and stent placement, abdominal aortic aneurysm, with previous stent placement, hypertension, mild asymptomatic COPD, and a remote history of tobacco use. The patient did have COVID 19 infection in June. More recently, he is currently being evaluated for possible malignancy, may be lung cancer. The CT that was done showed extensive enlargement of lymph nodes throughout the mediastinum and right hilar region, and, it was discovered that he had metastatic deposits and multiple bony areas, and in the liver. Dr. Heck was concerned about small cell lung cancer. The only new labs today or a PT of 11.7, INR 1.1, PTT of 44.2. The patient had recently been on a factor X a inhibitor. The bone scan showed potential metastatic deposits in the left posterior 10th rib, inferior right scapula, and subtrochanteric right femur. In addition, there is an abnormal signal in the calvarium. Progress note dated 10/06/2020. 70-year-old gentleman, currently being evaluated for possible metastatic colon cancer. Currently, the patient's awaiting a liver biopsy. Currently, he has no major complaints. He denies any shortness of breath, chest pain or chest discomfort, fever, chills, cough, or phlegm production. The results of the computed tomography scan and bone scan were shared with the patient. I did mention to him that the determination of treatment options depend on the type of cancer that is proven. This can only be done with a biopsy. Interventional radiology is planning to biopsy one of the liver lesions. White count 58.5, hemoglobin 12.5, hematocrit 38.5, and platelet count 263,000. PTT is 47.7. Sodium 139, potassium 3.9, chlorides 110, CO2 20, BUN is 20, and creatinine is 0.68. Calcium is 10.7. Albumin 2.9. Progress note dated 10/07/2020. 70-year-old gentleman, currently being evaluated for possible metastatic lung cancer. The patient is awaiting a liver biopsy. The patient was previously on a factor X a inhibitor, and also aspirin. Apparently, interventional radiology does not want to do liver biopsy until October 12, which is this upcoming Monday. The patient doesn't really want to sit in the hospital until then, and I was wondering whether or not it would be okay to send him home on Lovenox subcu twice a day as a bridge, so that he could still get his liver biopsy on Monday. Apparently that will be explored by the primary service tomorrow. Currently he is on 3 L nasal cannula. White count of 65.5, hemoglobin 12.2, hematocrit 36.5, and platelet count is 284,000. Progress note dated 10/08/2020. 70-year-old gentleman probably be evaluated for possible metastatic lung cancer. The patient is awaiting a liver biopsy. The patient was previously on a factor X a inhibitor and also aspirin. Interventional radiology did not wanted to the liver biopsy before October 12. The patient himself does not want to sit in the hospital till then. I mention yesterday to the nurses, the patient could be discharged on low molecular weight heparin, given subcutaneously, twice a day, as a bridge until he has a liver biopsy. The primary service was going to check into that today. Today's white count is 73.8, hemoglobin 12, hematocrit 37, and platelet count 293,000. PTT is 64.9. Objective - Vital Signs Vital signs: Vital Signs Temp 97.4 F L 10/08/20 12:55 Pulse 73 10/08/20 13:33 Resp 20 10/08/20 14:00 BP 126/72 10/08/20 12:55 Pulse Ox 90 L 10/08/20 12:55 Intake & Output 10/07/20 10/08/20 10/08/20 18:59 06:59 18:59 Intake Total 240 1450 0 Output Total 300 300 200 Balance -60 1150 -200 Weight 108 kg Intake: Intake, IV Titration 1250 Amount Heparin Sod,Pork in 0.45% 250 NaCl 25,000 unit In 0.45 % NaCl 1 250ml.bag @ 9.19 UNITS/KG/HR 10.004 mls/ hr IV .Q24H [facility] Rx#: [id number] Sodium Chloride 0.9% 1, 1000 000 ml @ 150 mls/hr IV . Q6H40M [facility] Rx#:[id number] Oral 240 200 0 Output: Urine 300 300 200 Other: Voiding Method Bedside Commode Bedside Commode Urinal # Voids 1 2 - Exam No acute distress, oriented 3. Saturations are 95% on 3 L nasal O2. HEENT examination is grossly unremarkable. Mucous membranes are moist. No oral lesions. Neck supple. Full range of motion. No adenopathy thyromegaly or neck vein distention. Cardiovascular examination reveals regular rhythm rate. S1-S2 normal. No S3 or S4. No discernible murmur noted. Heart rate 69 bpm. Lungs reveal clear breath sounds. Her sounds are equal bilaterally. No adventitious lung sounds including wheezes rhonchi or crackles. Abdomen soft bowel sounds are heard. No masses or tenderness. Extremities are intact. No cyanosis clubbing or edema. Skin is without rash or lesion. Neurologic examination is brief but nonfocal. - Labs CBC & Chem 7: 10/08/20 06:29 10/06/20 03:11 Labs: Abnormal Lab Results - Last 24 Hours (Table) 10/07/20 10/07/20 10/08/20 Range/Units 16:20 19:55 05:56 WBC (3.8-10.6) k/uL RBC (4.30-5.90) m/uL Hgb (13.0-17.5) gm/dL Hct (39.0-53.0) % Neutrophils # (1.3-7.7) k/uL Lymphocytes # (1.0-4.8) k/uL Monocytes # (0-1.0) k/uL Basophils # (0-0.2) k/uL APTT (22.0-30.0) sec POC Glucose (mg/dL) 152 H 213 H 143 H (75-99) mg/dL 10/08/20 10/08/20 10/08/20 Range/Units 06:29 06:29 12:00 WBC 73.8 H* (3.8-10.6) k/uL RBC 3.71 L (4.30-5.90) m/uL Hgb 12.0 L (13.0-17.5) gm/dL Hct 37.0 L (39.0-53.0) % Neutrophils # 70.5 H (1.3-7.7) k/uL Lymphocytes # 0.0 L (1.0-4.8) k/uL Monocytes # 1.1 H (0-1.0) k/uL Basophils # 1.9 H (0-0.2) k/uL APTT 64.9 H (22.0-30.0) sec POC Glucose (mg/dL) 127 H (75-99) mg/dL Microbiology - Last 24 Hours (Table) 10/02/20 18:06 Blood Culture - Preliminary Blood No Growth after 120 hours Assessment and Plan Assessment: Diffuse thoracic/mediastinal adenopathy, 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 Multiple metastatic deposits noted in the liver and bony structures. Deep vein thrombosis, left lower extremity. Prior history of COVID 19 infection, June 2020. History of mild asymptomatic COPD. Prior history of tobacco use. History of CAD, with previous bypass grafting, and stent. Status post stenting of abdominal aortic aneurysm. Prior history of cardiac arrest in our office, requiring brief CPR. Hypercalcemia, thought to be related to underlying malignancy. Plan: Plan dated 10/05/2020. The patient will eventually need a liver biopsy to be performed by interventional radiology. If nondiagnostic, we might consider bronchoscopy and transbronchial needle aspiration of the thoracic nodes. The patient is being treated for his hypercalcemia. He understands the seriousness of the problem. Interventional radiology is waiting a couple days because the patient was on a factor X a inhibitor. We will continue to follow. Prognosis is guarded. Plan dated 10/06/2020. The patient's calcium is down to 10.7. The patient is to have a liver biopsy performed by interventional radiology. I believe is going to be done on . Additional recommendations and suggestions are forthcoming. Currently, the patient stable. Patient currently is on a heparin drip. Patient was previously on a factor X a inhibitor. Prognosis is guarded. All questions are answered. Plan dated 10/07/2020. Apparently physical therapy told the family, that the patient was stable enough to be discharged home because he can manage himself at home. The patient would like to go home rather than sit in the hospital over the next 5 days when he for the liver biopsy on October 12. He is currently on IV heparin. The patient could be transitioned to subcutaneous Lovenox twice a day, until his liver biopsy will be performed on October 12. His overall prognosis is poor given the extent of what appears to be significantly metastatic disease. We will continue to follow. I did alert the kit planner/welfare case worker. Plan dated 10/08/2020. The patient wasn't scheduled for a liver biopsy until October 12. The patient is getting restless because he does not want to be here in the hospital. I suggested the possibility of him going on Lovenox, twice a day, until his liver biopsy could be done. The primary service would check into this. Additional recommendations and suggestions are forthcoming. We'll continue to follow. Time with Patient: Less than 30
[2020-10-08 15:03] VITALS: BMI 31.4
--- NOTE | 2020-10-08 15:04 | P.PN ---
Subjective Progress Note Date: 10/08/20 Principal diagnosis: Lung and liver lesions, hilar and mediastinal lymphadenopathy, bone lesions In follow-up today patient's is at the bedside. No acute complaints, remains moderately confused. Persistent, generalized weakness. Cont to work with PT/OT. No fevers, appetite is fair, no vomiting, difficulty in breathing at rest, he does get short of breath with exertion, no acute changes in bowel or bladder habits. Objective - Vital Signs Vital signs: Vital Signs Temp 97.4 F L 10/08/20 12:55 Pulse 73 10/08/20 13:33 Resp 20 10/08/20 14:00 BP 126/72 10/08/20 12:55 Pulse Ox 90 L 10/08/20 12:55 Intake & Output 10/07/20 10/08/20 10/08/20 18:59 06:59 18:59 Intake Total 240 1450 0 Output Total 300 300 200 Balance -60 1150 -200 Weight 108 kg Intake: Intake, IV Titration 1250 Amount Heparin Sod,Pork in 0.45% 250 NaCl 25,000 unit In 0.45 % NaCl 1 250ml.bag @ 9.19 UNITS/KG/HR 10.004 mls/ hr IV .Q24H [facility] Rx#: [id number] Sodium Chloride 0.9% 1, 1000 000 ml @ 150 mls/hr IV . Q6H40M [facility] Rx#:[id number] Oral 240 200 0 Output: Urine 300 300 200 Other: Voiding Method Bedside Commode Bedside Commode Urinal # Voids 1 2 - Constitutional General appearance: Present: cooperative, morbidly obese - EENT Eyes: Present: anicteric sclerae, EOMI ENT: Present: hearing grossly normal - Respiratory Respiratory: bilateral: CTA, diminished - Cardiovascular Heart sounds: normal: S1, S2 - Peripheral edema leg Peripheral Edema: bilateral: Trace - Gastrointestinal General gastrointestinal: Present: soft - Neurologic Neurologic: Present: CNII-XII intact - Musculoskeletal Musculoskeletal: Present: generalized weakness, strength equal bilaterally - Psychiatric Psychiatric Comment(s): A&O x 2 Psychiatric: Present: appropriate affect - Labs CBC & Chem 7: 10/08/20 06:29 10/06/20 03:11 Labs: Abnormal Lab Results - Last 24 Hours (Table) 10/07/20 10/07/20 10/08/20 Range/Units 16:20 19:55 05:56 WBC (3.8-10.6) k/uL RBC (4.30-5.90) m/uL Hgb (13.0-17.5) gm/dL Hct (39.0-53.0) % Neutrophils # (1.3-7.7) k/uL Lymphocytes # (1.0-4.8) k/uL Monocytes # (0-1.0) k/uL Basophils # (0-0.2) k/uL APTT (22.0-30.0) sec POC Glucose (mg/dL) 152 H 213 H 143 H (75-99) mg/dL 10/08/20 10/08/20 10/08/20 Range/Units 06:29 06:29 12:00 WBC 73.8 H* (3.8-10.6) k/uL RBC 3.71 L (4.30-5.90) m/uL Hgb 12.0 L (13.0-17.5) gm/dL Hct 37.0 L (39.0-53.0) % Neutrophils # 70.5 H (1.3-7.7) k/uL Lymphocytes # 0.0 L (1.0-4.8) k/uL Monocytes # 1.1 H (0-1.0) k/uL Basophils # 1.9 H (0-0.2) k/uL APTT 64.9 H (22.0-30.0) sec POC Glucose (mg/dL) 127 H (75-99) mg/dL Microbiology - Last 24 Hours (Table) 10/02/20 18:06 Blood Culture - Preliminary Blood No Growth after 120 hours Assessment and Plan (1) Hypercalcemia Narrative/Plan: Aredia 2 doses given. Calcium 10.2 yeaterday Highly suspicious for hypercalcemia secondary to malignancy. Check again in AM to ensure Ca++ levels are staying WNL Current Visit: Yes Status: Acute Priority: High Code(s): E83.52 - HYPERCALCEMIA SNOMED Code(s): 60322196 (2) Liver lesion Current Visit: Yes Status: Acute Priority: High Code(s): K76.9 - LIVER DISEASE, UNSPECIFIED SNOMED Code(s): 886299911 (3) Pulmonary nodule Current Visit: Yes Status: Acute Priority: High Code(s): R91.1 - SOLITARY PULMONARY NODULE SNOMED Code(s): 507864893 (4) Thrush Current Visit: Yes Status: Resolved Priority: Medium Code(s): B37.0 - CANDIDAL STOMATITIS SNOMED Code(s): 29452677 (5) Left leg DVT Current Visit: Yes Status: Acute Priority: High Code(s): I82.402 - ACUTE EMBOLISM AND THOMBOS UNSP DEEP VEINS OF L LOW EXTREM SNOMED Code(s): 721278868 Plan: Patient received aspirin 10/03. This is on hold. Plan is for liver biopsy, Monday10/12/20. Follow-up with Oncology would be 5-7 days after biopsy for diagnosis based on pathology results. Also, Oncologist would be able to offer prognosis and treatment options. Reviewed the case with the Attending. Plan is at this time to keep the patient inpatient for the procedure on Monday. Unfortunately, pt cannot affoed Lovenox expense, concerns for the patient and his to manage Lovenox therapy and patient is also a very high fall risk. Agree with keeping patient on a heparin drip for left lower extremity DVT for now (wrong leg documented yesterday). Patient's told me that she had seen Dr. Donis in the outpatient setting. Collaborated with vascular Dr. Donis on the phone who reviewed the patient's case. When he reviewed the Doppler done in his office his recommendation was to continue eliquis at 5mg BID and have a repeat ultrasound in his ofc in the next 1-2 weeks to evaluate if the clot has propagated or remained the same.
--- NOTE | 2020-10-08 16:14 | CDI ---
Documentation Clarification Form Date: 10/08/2020 03:42:47 PM From: Nichelle Mckeon RN CCDS Admit Date: 10/02/2020 01:15:00 PM Patient Name: Nakul Guan Visit Number: [id number] Discharge Date: ATTENTION: The Clinical Documentation Specialists (CDI) and [facility] Coding Staff appreciate your assistance in clarifying documentation. Please respond to the clarification below the line at the bottom and electronically sign. The CDI & [facility] Coding staff will review the response and follow-up if needed. Please note: Queries are made part of the Legal Health Record. If you have any questions, please contact the author of this message via ITS. Dr. Dane Brannon There is documentation of rule out acute dqz-VM-peebkbb-elevation myocardial infarction in the H/P on 10/02 and subsequent progress notes. Additional clarification is requested if it was ruled in or out. 10/03- 10/04 Cardiology consul and progress notes: Abnormal troponins, not indicative of myocardial injury. History/Risk Factors: Coronary artery disease, Hypertension, Myocardial Infarction, Former smoker Clinical Indicators: 70-year-old male present to ED on 10/02 with complaints of generalized weakness. 10/02 EKG: sinus tachycardia with occasional PVC at a rate of 118 beats a minute 10/02 Labs: WBC 39.2, Troponin 0.109, 0.115, 0.122 10/03 ECHO: Resting tachycardia (HR.100 bpm) mort recent echocardiogram EF 50-55 % (per cardiology consult 10/03) Treatment: Telemetry monitoring Lipitor 10MG PO HS Lopressor 50 MG PO BID Can you please clarify if wcz-QN-qxvecgo-elevation-myocardial infarction is? [ ] Ruled out [ ] Other, please specify [ ] Unableo determine (Template Last Revised: August 2020) Unableo determine MTDD
[2020-10-08] MEDS: ACETAMINOPHEN TAB 325 MG TAB PO PRN (16:35)
[2020-10-08 17:25] LABS: Glucose,Whole Blood 137 mg/dL (75-99)
[2020-10-08 21:18] LABS: Glucose,Whole Blood 204 mg/dL (75-99)
[2020-10-08] MEDS: ATORVASTATIN 10 MG TAB PO SCH (21:27)
[2020-10-08] MEDS: NITROGLYCERIN SL TABS 0.4 MG TAB SUBLINGUAL PRN (21:48)
[2020-10-09] MEDS: methylPREDNISolone SOD SUCCI 40 MG/ML 1 ML VIAL IV SCH ×2 (01:01→09:09)
[2020-10-09] MEDS: ALPRAZolam 0.25 MG TAB PO PRN ×3 (01:42→13:35)
[2020-10-09] MEDS ORDERED: FUROSEMIDE 10 MG/ML 4 ML VIAL IV STA (03:34)
[2020-10-09] MEDS ORDERED: ALPRAZolam 0.25 MG TAB PO STA (03:35)
[2020-10-09 06:52] LABS: African American GFR (CKD) >90 (>60 ml/min/1.73 sqM); Anion Gap 10 mmol/L; Blood Urea Nitrogen 22 mg/dL (9-20); Calcium 9.5 mg/dL (8.4-10.2); Carbon Dioxide 21 mmol/L (22-30); Chloride 109 mmol/L (98-107); Glucose 156 mg/dL (74-99); Non-African American GFR(CKD) 89 (>60 ml/min/1.73 sqM); Potassium 3.8 mmol/L (3.5-5.1); Sodium 140 mmol/L (137-145)
[2020-10-09 07:03] LABS: HCT 40.1 % (39.0-53.0); HGB 12.4 gm/dL (13.0-17.5); MCH 30.7 pg (25.0-35.0); MCV 99.1 fL (80.0-100.0); Mean Platelet Volume 8.9; Platelet Count 287 k/uL (150-450); RBC 4.05 m/uL (4.30-5.90); RDW 14.6 % (11.5-15.5)
--- NOTE | 2020-10-09 07:06 | P.PN ---
Subjective This is a pleasant 70 years old male with past medical history of asthma/COPD, hypertension, hyperlipidemia. To presents with shortness of breath. 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 No other significant comorbidity including chronic atrial fibrillation was on Eliquis at home and currently he is on heparin drip, also patient with left DVT. Also he has evidence of right lower lobe pulmonary infiltrate suspicious for pneumonia and he is currently covered with Zithromax and ceftriaxone. Also he is on Solu- Medrol for his possible COPD exacerbation. He is currently today was sitting in chair, feeling generally weak, some dyspnea and little coughing. Also he was complaining from constipation and mild back pain. He is planned to get a liver biopsy to decide the treatment with chemotherapy, and patient biopsy could be done this Monday however benefits going to be done as an outpatient is going to be next Monday on 10/16, at the same time patient refused rehab and he wants to go home with a wheelchair and comorbid however is hard for his family to take care of him given his size and comorbidities. He is hemodynamically stable. Labs showed leukocytosis of 70 3.8K, hemoglobin 12. Platelets are normal. Glucose controlled Objective - Vital Signs Vital signs: Vital Signs Temp 98.1 F 10/08/20 11:40 Pulse 76 10/08/20 11:40 Resp 16 10/08/20 11:40 BP 134/89 10/08/20 11:40 Pulse Ox 97 10/08/20 11:40 Intake & Output 10/07/20 10/08/20 10/08/20 18:59 06:59 18:59 Intake Total 240 1450 Output Total 300 300 Balance -60 1150 Weight 108 kg Intake: Intake, IV Titration 1250 Amount Heparin Sod,Pork in 0.45% 250 NaCl 25,000 unit In 0.45 % NaCl 1 250ml.bag @ 9.19 UNITS/KG/HR 10.004 mls/ hr IV .Q24H [facility] Rx#: [id number] Sodium Chloride 0.9% 1, 1000 000 ml @ 150 mls/hr IV . Q6H40M [facility] Rx#:[id number] Oral 240 200 Output: Urine 300 300 Other: Voiding Method Bedside Commode Bedside Commode Urinal Urinal # Voids 1 2 - Exam -GENERAL: The patient is alert and oriented x3, not in any acute distress. Generally weak HEENT: Pupils are round and equally reacting to light. EOMI. No scleral icterus. No conjunctival pallor. Normocephalic, atraumatic. No pharyngeal erythema. No thyromegaly. CARDIOVASCULAR: S1 and S2 present. No murmurs, rubs, or gallops. PULMONARY: Chest is clear to auscultation, no wheezing or crackles. ABDOMEN: Soft, nontender, nondistended, normoactive bowel sounds. No palpable organomegaly. MUSCULOSKELETAL: No joint swelling or deformity. EXTREMITIES: No cyanosis, clubbing, or pedal edema. NEUROLOGICAL: Gross neurological examination did not reveal any focal deficits. SKIN: No rashes. no petechiae. - Labs CBC & Chem 7: 10/08/20 06:29 10/06/20 03:11 Labs: Abnormal Lab Results - Last 24 Hours (Table) 10/07/20 10/07/20 10/08/20 Range/Units 16:20 19:55 05:56 WBC (3.8-10.6) k/uL RBC (4.30-5.90) m/uL Hgb (13.0-17.5) gm/dL Hct (39.0-53.0) % Neutrophils # (1.3-7.7) k/uL Lymphocytes # (1.0-4.8) k/uL Monocytes # (0-1.0) k/uL Basophils # (0-0.2) k/uL APTT (22.0-30.0) sec POC Glucose (mg/dL) 152 H 213 H 143 H (75-99) mg/dL 10/08/20 10/08/20 10/08/20 Range/Units 06:29 06:29 12:00 WBC 73.8 H* (3.8-10.6) k/uL RBC 3.71 L (4.30-5.90) m/uL Hgb 12.0 L (13.0-17.5) gm/dL Hct 37.0 L (39.0-53.0) % Neutrophils # 70.5 H (1.3-7.7) k/uL Lymphocytes # 0.0 L (1.0-4.8) k/uL Monocytes # 1.1 H (0-1.0) k/uL Basophils # 1.9 H (0-0.2) k/uL APTT 64.9 H (22.0-30.0) sec POC Glucose (mg/dL) 127 H (75-99) mg/dL Microbiology - Last 24 Hours (Table) 10/02/20 18:06 Blood Culture - Preliminary Blood No Growth after 120 hours Assessment and Plan Assessment: 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 Rate is controlled Hyperlipidemia Hypertension Coronary artery disease with History of bypass and stent placement Plan: This is a pleasant 70 years old male with multiple metastatic disease involving the lung lymph node, liver and bone. The patient is scheduled for an outpatient liver biopsy on this coming , or outpatient next Monday 10/16, were going to discuss with rehabilitation caseworker for possible discharge as outpatient on Eliquis the pulmonary team recommendation. Patient is adamant about going to rehab and he wants to go home, he wants [facility] wheelchair to be provided Labs and medication were reviewed.. Continue same treatment. Continue with symptomatic treatment. Resume home medication. Monitor lytes and vitals. DVT and GI prophylaxis. Further recommendations as per clinical course of the patient DVT prophylaxis: heparin GI Prophylaxis: Ppi PT/OT: Patient refused rehab. He wants to go home Prognosis is guarded
[2020-10-09 07:09] LABS: WBC 70.4 k/uL (3.8-10.6)
[2020-10-09 07:16] LABS: Glucose,Whole Blood 156 mg/dL (75-99)
[2020-10-09] MEDS: IPRATROPIUM-ALBUTEROL 3 ML NEB INHALATION SCH ×3 (07:25→21:33)
--- NOTE | 2020-10-09 07:54 | CT ---
EXAMINATION TYPE: CT brain wo con DATE OF EXAM: 10/09/2020 COMPARISON: 10/02/2020 HISTORY: 70 year-old male stroke symptoms, confusion, altered mental status, slow reaction right pupi l. TECHNIQUE: Examination was done in axial plane without intravenous contrast. Coronal and sagittal r econstructions performed. CT DLP: 1269 mGycm Automated exposure control for dose reduction was used. FINDINGS: There is no evidence of acute intracranial hemorrhage, acute ischemic changes, mass, mass-effect, or extra-axial fluid collection. There is no effacement of cerebral sulci or basal subarachnoid cister ns. Mild to moderate hydrocephalus is unchanged with Schrader ratio calculated at 0.39, unchanged. There is no midline shift. Benavides-white matter distinction is preserved. Metastatic calcifications within the carotid siphons and proximal V4 segment left vertebral artery. Paranasal sinuses are pneumatized. Orbits and globes are intact. Rightward nasal septal deviation. IMPRESSION: 1. Unchanged mild to moderate hydrocephalus (Schrader ratio 0.39) probably due to a component of central cerebral atrophy. Correlate to exclude NPH. 2. No acute intracranial abnormality seen. If symptoms persist, follow-up CT or MRI.
--- NOTE | 2020-10-09 08:37 | CT ---
EXAMINATION TYPE: CODE STROKE: CTA head neck DATE OF EXAM: 10/09/2020 HISTORY: Altered mental status. slow reaction Rt pupil COMPARISON: CT DLP: 461 mGycm. Automated Exposure Control for Dose Reduction was Utilized. TECHNIQUE: CTA scan of the neck is performed with IV Contrast, patient injected with 65 mL of Isovue 370, axial images are obtained, coronal and sagittal reformatted images are reviewed. Three-D recons tructed images are created on an independent workstation and reviewed. Source images are reviewed. FINDINGS: Carotid/Vascular Structures: There is a three-vessel arch. There is a stent present on the right. Rolando quing is present on the left carotid bifurcation. Left vertebral artery is dominant. No significant f low-limiting stenosis. Cervical of Franco: Vertebral basilar system appears normal. Posterior cerebral vasculature is unrema rkable. Internal carotid arteries bifurcate normally into A1 and M1 segments. A2 segments are normal. The anterior communicating artery is patent. Posterior communicating arteries are absent. Other: Portion of the thyroid visualizes normal. Right apical pleural fluid is present. Large mediast inal lymph nodes are within the [id number]. IMPRESSION: 1. No flow-limiting stenosis bilateral carotid bifurcations. 2. Normal tunica-biloxi of Franco. 3. Enlarged mediastinal lymph nodes
[2020-10-09] MEDS: METOPROLOL TARTRATE 50 MG TAB PO SCH ×2 (09:08→21:35)
[2020-10-09] MEDS: SENNOSIDES 8.6 MG TAB PO SCH ×2 (09:08→21:35)
[2020-10-09] MEDS: PANTOPRAZOLE 40 MG TABLET PO SCH (09:08)
[2020-10-09] MEDS: SODIUM CHLORIDE 0.9% 1,000 ML IV SCH ×5 (09:09→23:29)
[2020-10-09] MEDS: INSULIN ASPART (NovoLOG) 100 UNIT/ML VIAL SQ SCH ×4 (09:09→21:36)
[2020-10-09] MEDS: NITROGLYCERIN SL TABS 0.4 MG TAB SUBLINGUAL PRN (09:10)
[2020-10-09] MEDS: NYSTATIN 100,000 UNIT/ML SUSP 500,000 UNIT/5 ML CUP PO SCH ×4 (09:10→23:28)
[2020-10-09] MEDS: ERGOCALCIFEROL 1,250 MCG (50,000 IU) CAPSULE PO SCH (09:10)
[2020-10-09] MEDS: AZITHROMYCIN 500 MG TAB PO SCH (09:10)
[2020-10-09] MEDS ORDERED: ASPIRIN 325 MG TAB PO SCH (10:00)
[2020-10-09] MEDS: NON FORMULARY DRUG (Vitamin B Complex [Vitamin B Complex] 1 EACH Capsule) PO SCH (10:07)
[2020-10-09] MEDS: LACTOBACILLUS ACIDOPH & BULGAR 1 EACH PACKET PO SCH (10:33)
[2020-10-09] MEDS: FLUCONAZOLE IN NACL,ISO-OSM 100 MG in SALINE 1 50ML.BAG IVPB SCH (10:33)
[2020-10-09] MEDS: ACETAMINOPHEN TAB 325 MG TAB PO PRN (11:06)
--- NOTE | 2020-10-09 11:20 | P.PN ---
Subjective Progress Note Date: 10/09/20 Principal diagnosis: Suspect metastatic disease This is a 70-year-old white male familiar to my service. with history of multiple medical problems including coronary artery disease and previous CABG and stent placement. History of abdominal aortic aneurysm and previous stent p lacement, history of hypertension, mild asymptomatic COPD, remote smoking history quit smoking over 20 years ago. Patient normally sees me on a regular basis in the office, and I saw this patient basically about a month ago. Patient was recovering from Covid 19 infection which she had in June, and did not require any hospitalization. When I saw him about a month ago, follow- up chest x-ray was done in the office, and it was basically unremarkable. The chest x-ray was dated 09/03/2020, and it showed peripheral increased lung markings, chronic changes stable and it was compared to the chest x-ray that was done on 06/27/2020. On that specific chest x-ray, there was no suspicion of any findings to suggest malignancy. On 10/02/2020, patient was seen in the ER, and he had multiple constitutional symptoms including weakness, unable to ambulate, patient has been losing weight over the last month or so. A chest x-ray was done questioned some nodularity in the left lung, and after I reviewed the chest x-ray I recommended a CT angiogram of the chest. This came back quite abnormal showing extensive enlargement of lymph nodes throughout the mediastinum and right hilar region it also showed right apical and posterior right lower nodules. It also showed extensive multiple hypodense lesions within the liver compatible with metastasis. Patient had no previous history of malignancy. And over the years he declined having colonoscopy. Patient smoked until about 20 years ago, and he had family history of lung cancer./Father. Considering the findings on the CT of the chest and on the chest x-ray, I was asked to see this patient on consultation. Venous Doppler on this admission showed limited deep vein thromboses in the left lower extremity. CT of the abdomen and pelvis showed mostly numerous liver lesions suggestive of metastatic disease. Reevaluated today on 10/04/2020, patient continues to feel weakness. Denies any cough, no fever, no chills, no hemoptysis. Continues to have leukocytosis with WBC count of 48.2 hemoglobin is 12.1. Remains on heparin for his deep vein t hrombosis, calcium is down to 11.2 from 12.6 yesterday. Ionized calcium yesterday was 6.7. Pro-calcitonin is 0.55, patient remains empirically on antibiotics in the form of Rocephin and Zithromax. Blood cultures and sputum cultures are negative so far since admission. Patient is supposedly scheduled to have CT guided liver biopsy or ultrasound guided liver biopsy tomorrow however he is on heparin and that has to be put on hold for 2 hours prior to the procedure. today is at bedside, and I discussed his condition with the at bedside. And explained to her that we are working him up for possible metastatic disease. Primary remains unknown, but I'm suspecting that we may be dealing with small cell lung cancer. Progress note dated 10/05/2020. This is a 70-year-old male, who sees my partner as a primary. He has a history of multiple medical problems including coronary artery disease, with previous bypass grafting, and stent placement, abdominal aortic aneurysm, with previous stent placement, hypertension, mild asymptomatic COPD, and a remote history of tobacco use. The patient did have COVID 19 infection in June. More recently, he is currently being evaluated for possible malignancy, may be lung cancer. The CT that was done showed extensive enlargement of lymph nodes throughout the mediastinum and right hilar region, and, it was discovered that he had metastatic deposits and multiple bony areas, and in the liver. Dr. Heck was concerned about small cell lung cancer. The only new labs today or a PT of 11.7, INR 1.1, PTT of 44.2. The patient had recently been on a factor X a inhibitor. The bone scan showed potential metastatic deposits in the left posterior 10th rib, inferior right scapula, and subtrochanteric right femur. In addition, there is an abnormal signal in the calvarium. Progress note dated 10/06/2020. 70-year-old gentleman, currently being evaluated for possible metastatic colon cancer. Currently, the patient's awaiting a liver biopsy. Currently, he has no major complaints. He denies any shortness of breath, chest pain or chest discomfort, fever, chills, cough, or phlegm production. The results of the computed tomography scan and bone scan were shared with the patient. I did mention to him that the determination of treatment options depend on the type of cancer that is proven. This can only be done with a biopsy. Interventional radiology is planning to biopsy one of the liver lesions. White count 58.5, hemoglobin 12.5, hematocrit 38.5, and platelet count 263,000. PTT is 47.7. Sodium 139, potassium 3.9, chlorides 110, CO2 20, BUN is 20, and creatinine is 0.68. Calcium is 10.7. Albumin 2.9. Progress note dated 10/07/2020. 70-year-old gentleman, currently being evaluated for possible metastatic lung cancer. The patient is awaiting a liver biopsy. The patient was previously on a factor X a inhibitor, and also aspirin. Apparently, interventional radiology does not want to do liver biopsy until October 12, which is this upcoming Monday. The patient doesn't really want to sit in the hospital until then, and I was wondering whether or not it would be okay to send him home on [employer] subcu twic e a day as a bridge, so that he could still get his liver biopsy on Monday. Apparently that will be explored by the primary service tomorrow. Currently he is on 3 L nasal cannula. White count of 65.5, hemoglobin 12.2, hematocrit 36.5, and platelet count is 284,000. Progress note dated 10/08/2020. 70-year-old gentleman probably be evaluated for possible metastatic lung cancer. The patient is awaiting a liver biopsy. The patient was previously on a factor X a inhibitor and also aspirin. Interventional radiology did not wanted to the liver biopsy before October 12. The patient himself does not want to sit in the hospital till then. I mention yesterday to the nurses, the patient could be discharged on low molecular weight heparin, given subcutaneously, twice a day, as a bridge until he has a liver biopsy. The primary service was going to check into that today. Today's white count is 73.8, hemoglobin 12, hematocrit 37, and platelet count 293,000. PTT is 64.9. Patient was reevaluated today on 10/09/2020, patient has not had his liver biopsy yet. I believe is scheduled not to have it done next Monday. In the meantime the patient is having intermittent episodes of confusion, being addressed by neurology on the case. Workup so far seems to be negative. Patient is resting, he is on 4 L nasal cannula, O2 sats is 96%. Patient is having a leukemoid reaction with WBC count of 70.4. Elective lites are normal, his calcium is down to 9.5. Patient did receive treatment for his hypercalcemia. Considering the calcium is better now, I will go ahead and discontinue his Solu-Medrol as it may be contributing to his mental status change Objective - Vital Signs Vital signs: Vital Signs Temp 97.3 F L 10/09/20 09:05 Pulse 80 10/09/20 11:04 Resp 16 10/09/20 09:08 BP 166/92 10/09/20 09:05 Pulse Ox 96 10/09/20 09:05 Intake & Output 10/08/20 10/09/20 10/09/20 18:59 06:59 18:59 Intake Total 250 Output Total 200 400 Balance 50 -400 Weight 108 kg Intake: Intake, IV Titration 250 Amount Heparin Sod,Pork in 0.45% 250 NaCl 25,000 unit In 0.45 % NaCl 1 250ml.bag @ 9.19 UNITS/KG/HR 10.004 mls/ hr IV .Q24H [facility] Rx#: [id number] Oral 0 Output: Urine 200 400 Post Void Residual 0 Other: Voiding Method Bedside Commode Urinal - Exam Physical Exam: Revealed 70-year-old white male, pleasant, in no distress. On 4 L nasal cannula. Head: Atraumatic, normocephalic. HEENT:[Neck is supple.] [No neck masses.] [No thyromegaly.] [No JVD.] Chest: [Clear throughout, no crackles, no rhonchi, no wheezes.] Cardiac Exam: [Normal S1 and S2, no S3 gallop, no murmur.] Abdomen: [Soft, nontender, no megaly, no rebound, no guarding, normal bowel sounds.] Extremities: [No clubbing, no edema, no cyanosis.] Neurological Exam: [No focal neurologic deficit.] Alert and oriented 3. Psychiatric: Normal mood affect and normal mental status examination. Skin: No rashes. - Labs CBC & Chem 7: 10/09/20 06:11 10/09/20 06:11 Labs: Abnormal Lab Results - Last 24 Hours (Table) 10/08/20 10/08/20 10/08/20 Range/Units 12:00 17:23 21:16 WBC (3.8-10.6) k/uL RBC (4.30-5.90) m/uL Hgb (13.0-17.5) gm/dL APTT (22.0-30.0) sec Chloride (98-107) mmol/L Carbon Dioxide (22-30) mmol/L BUN (9-20) mg/dL Glucose (74-99) mg/dL POC Glucose (mg/dL) 127 H 137 H 204 H (75-99) mg/dL 10/09/20 10/09/20 10/09/20 Range/Units 06:11 06:11 06:11 WBC 70.4 H* (3.8-10.6) k/uL RBC 4.05 L (4.30-5.90) m/uL Hgb 12.4 L (13.0-17.5) gm/dL APTT 41.1 H (22.0-30.0) sec Chloride 109 H (98-107) mmol/L Carbon Dioxide 21 L (22-30) mmol/L BUN 22 H (9-20) mg/dL Glucose 156 H (74-99) mg/dL POC Glucose (mg/dL) (75-99) mg/dL 10/09/20 Range/Units 07:12 WBC (3.8-10.6) k/uL RBC (4.30-5.90) m/uL Hgb (13.0-17.5) gm/dL APTT (22.0-30.0) sec Chloride (98-107) mmol/L Carbon Dioxide (22-30) mmol/L BUN (9-20) mg/dL Glucose (74-99) mg/dL POC Glucose (mg/dL) 156 H (75-99) mg/dL Microbiology - Last 24 Hours (Table) 10/02/20 18:06 Blood Culture - Final Blood No Growth after 144 hours Assessment and Plan Assessment: Impression: Multiple constitutional symptoms mostly likely secondary to metastatic disease, 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 Multiple metastatic lesions in the liver and significant mediastinal adenopathy, Limited vein thromboses in the left lower extremity. History of covid 19 infection in June. History of COPD. Ex-smoker. History of coronary artery disease and previous CABG and stent. History of abdominal aortic aneurysm. History of cardiac arrest in my office requiring brief CPR. Elevated sed rate most likely secondary to malignancy. Hypercalcemia most likely secondary to underlying malignancy. History of abdominal aortic aneurysm and stenting. Recommendation: Continue empiric antibiotics, cultures remain negative so far. Continue to monitor calcium. Continue present supportive care measures. ultrasound or CT-guided needle biopsy of the liver lesions , this scheduled to be done on Monday. Continue anticoagulation therapy Discontinue methylprednisolone. Prognosis is definitely guarded. Time with Patient: Less than 30
[2020-10-09 11:40] LABS: Glucose,Whole Blood 163 mg/dL (75-99)
[2020-10-09] MEDS: HYDROcodone/APAP 5-325MG 1 EACH TAB PO PRN ×2 (13:35→22:38)
[2020-10-09] MEDS: FOLIC ACID 1 MG TAB PO SCH (14:36)
[2020-10-09] MEDS: MULTIVITAMINS, THERA 1 EACH TAB PO SCH (14:36)
[2020-10-09] MEDS: THIAMINE 100 MG TAB PO SCH (14:36)
--- NOTE | 2020-10-09 14:51 | P.PN ---
Subjective Progress Note Date: 10/09/20 Principal diagnosis: concern for metastatic malignancy Comfortable awaiting biopsy Objective - Vital Signs Vital signs: Vital Signs Temp 98.4 F 10/09/20 12:16 Pulse 79 10/09/20 12:16 Resp 16 10/09/20 12:16 BP 116/73 10/09/20 12:16 Pulse Ox 97 10/09/20 12:16 Intake & Output 10/08/20 10/09/20 10/09/20 18:59 06:59 18:59 Intake Total 250 Output Total 200 400 Balance 50 -400 Weight 108 kg 108 kg Intake: Intake, IV Titration 250 Amount Heparin Sod,Pork in 0.45% 250 NaCl 25,000 unit In 0.45 % NaCl 1 250ml.bag @ 9.19 UNITS/KG/HR 10.004 mls/ hr IV .Q24H [facility] Rx#: [id number] Oral 0 Output: Urine 200 400 Post Void Residual 0 Other: Voiding Method Bedside Commode Urinal Urinal # Voids 1 - Exam - Constitutional General appearance: Present: cooperative, morbidly obese - EENT Eyes: Present: anicteric sclerae, EOMI ENT: Present: hearing grossly normal - Respiratory Respiratory: bilateral: CTA, diminished - Cardiovascular Heart sounds: normal: S1, S2 - Peripheral edema leg Peripheral Edema: bilateral: Trace - Gastrointestinal General gastrointestinal: Present: soft - Neurologic Neurologic: Present: CNII-XII intact - Musculoskeletal Musculoskeletal: Present: generalized weakness, strength equal bilaterally - Psychiatric Psychiatric Comment(s): A&O x 2 Psychiatric: Present: appropriate affect - Labs CBC & Chem 7: 10/09/20 06:11 10/09/20 06:11 Labs: Abnormal Lab Results - Last 24 Hours (Table) 10/08/20 10/08/20 10/09/20 Range/Units 17:23 21:16 06:11 WBC (3.8-10.6) k/uL RBC (4.30-5.90) m/uL Hgb (13.0-17.5) gm/dL APTT (22.0-30.0) sec Chloride 109 H (98-107) mmol/L Carbon Dioxide 21 L (22-30) mmol/L BUN 22 H (9-20) mg/dL Glucose 156 H (74-99) mg/dL POC Glucose (mg/dL) 137 H 204 H (75-99) mg/dL 10/09/20 10/09/20 10/09/20 Range/Units 06:11 06:11 07:12 WBC 70.4 H* (3.8-10.6) k/uL RBC 4.05 L (4.30-5.90) m/uL Hgb 12.4 L (13.0-17.5) gm/dL APTT 41.1 H (22.0-30.0) sec Chloride (98-107) mmol/L Carbon Dioxide (22-30) mmol/L BUN (9-20) mg/dL Glucose (74-99) mg/dL POC Glucose (mg/dL) 156 H (75-99) mg/dL 10/09/20 Range/Units 11:35 WBC (3.8-10.6) k/uL RBC (4.30-5.90) m/uL Hgb (13.0-17.5) gm/dL APTT (22.0-30.0) sec Chloride (98-107) mmol/L Carbon Dioxide (22-30) mmol/L BUN (9-20) mg/dL Glucose (74-99) mg/dL POC Glucose (mg/dL) 163 H (75-99) mg/dL Microbiology - Last 24 Hours (Table) 10/02/20 18:06 Blood Culture - Final Blood No Growth after 144 hours Assessment and Plan Plan: Assessment and Recommendations: Leukocytosis: - Reactive Hypercalcemia: - Secondary to underlying maligancy: Evidence of osseous mets on Bone scan - POssibly related to tumor burden versus further disease Liver Masses: - Biopsy IR ordered - Curently on Heparin bridge while awaiting biopsy - Await path Pulmonary Nodules: RLL - Extensive adenopathy Hilar and Mediastinal Physician Attest: I have completed the full history and physical and agree with the above dictation, dictated as a scribe
[2020-10-09] MEDS ORDERED: MORPHINE SULFATE 2 MG/ML SYRINGE IVP STA (16:02)
[2020-10-09 17:16] LABS: Glucose,Whole Blood 137 mg/dL (75-99)
--- NOTE | 2020-10-09 18:53 | MR ---
EXAMINATION TYPE: MR brain wo con DATE OF EXAM: 10/09/2020 COMPARISON: 10/09/2020 CT brain HISTORY: Altered mental status, possible stroke CONTRAST: Performed utilizing 0 mL intravenous Gadavist gadolinium contrast. TECHNIQUE: Multiplanar, multiecho imaging on a 3.0 Mary Ann magnet is performed through the brain. Stud y is performed within 24 hours of arrival to the hospital. The craniovertebral junction is normal. The pituitary is normal. Diffusion-weighted imaging is performed. There are punctate hyperintensities on diffusion weighted i maging suggesting acute ischemic areas. This would include left centrum semiovale, left frontal lobe subcortical white matter, 2 locations and parietal subcortical white matter one location. Series 401 image 192. Some frontal parietal uptake within the white matter on the left may be present as well. T here is a punctate area of subcortical white matter in the right occipital lobe. 2 foci may be within the posterior cerebellum left and right lobes. There are some additional periventricular white matter changes likely compatible with chronic white m atter ischemic changes. Ventricles and sulci are prominent for the patient age. IMPRESSIONS: 1. Scattered bilateral punctate hyperintensities compatible some acute microvascular ischemic change. This follows multiple vascular distributions. 2. Chronic appearing microvascular ischemic change.
[2020-10-09 21:08] LABS: Glucose,Whole Blood 147 mg/dL (75-99)
[2020-10-09] MEDS: NON FORMULARY DRUG (Acetaminophen/Diphenhydramine [Tylenol Pm 500-25mg] 1 EACH Tablet) PO SCH (21:32)
[2020-10-09] MEDS: ATORVASTATIN 10 MG TAB PO SCH (21:35)
--- NOTE | 2020-10-09 21:55 | P.PN ---
Subjective This is a pleasant 70 years old male with past medical history of asthma/COPD, hypertension, hyperlipidemia. To presents with shortness of breath. 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 No other significant comorbidity including chronic atrial fibrillation was on Eliquis at home and currently he is on heparin drip, also patient with left DVT. Also he has evidence of right lower lobe pulmonary infiltrate suspicious for pneumonia and he is currently covered with Zithromax and ceftriaxone. Also he is on Solu- Medrol for his possible COPD exacerbation. He is currently today was sitting in chair, feeling generally weak, some dyspnea and little coughing. Also he was complaining from constipation and mild back pain. He is planned to get a liver biopsy to decide the treatment with chemotherapy, and patient biopsy could be done this Monday however benefits going to be done as an outpatient is going to be next Monday on 10/16, at the same time patient refused rehab and he wants to go home with a wheelchair and comorbid however is hard for his family to take care of him given his size and comorbidities. He is hemodynamically stable. Labs showed leukocytosis of 70 3.8K, hemoglobin 12. Platelets are normal. Glucose controlled 10/09/2020 Patient developed tachycardia thought to be A. fib, also he has some chest pain and EKG was obtained and showed some ST T changes thought is to do digitalis effect. Repeat troponin was done and was negative. Better on the morning he was more confused and disoriented, he was pulling IV line and the tubes, his heart rate jumped 120-160 Because of his period of confusion code stroke was called, however patient shortly thereafter returned to his full consciousness, and workup was negative including CT of the brain, CT of the brain and MRI of the brain, cerebrospinal more details showing still extensive high white cell count at 70 K. However his oxygen requirement came down to 2 L/m from 4 L yesterday Patient remains on Zithromax, fluconazole, ceftriaxone and normal saline at 100 mL/h Heparin was discontinued transiently and with negative MRI it can be resumed Review of systems CONSTITUTIONAL: No fever, no malaise, no fatigue. HEENT: No recent visual problems or hearing problems. Denied any sore throat. CARDIOVASCULAR: No orthopnea, PND, no palpitations, no syncope. PULMONARY: No shortness of breath, no cough, no hemoptysis. GASTROINTESTINAL: No diarrhea, no nausea, no vomiting, no abdominal pain. Normoactive bowel sounds. NEUROLOGICAL: No headaches, no weakness, no numbness. Active Medications Generic Name Dose Route Start Last Admin Trade Name Freq PRN Reason Stop Dose Admin Acetaminophen 650 mg 10/02/20 17:08 10/09/20 11:06 Acetaminophen Tab 325 Mg Tab PO 650 mg Q4H PRN Administration Pain or Fever > 100.5 Hydrocodone Bitart/Acetaminophen 1 each 10/02/20 17:13 10/09/20 13:35 Hydrocodone/Apap 5-325mg 1 Each Tab PO 1 each Q6HR PRN Administration Pain Albuterol/Ipratropium 3 ml 10/02/20 20:00 10/09/20 21:33 Ipratropium-Albuterol 3 Ml Neb INHALATION Not Given RT-TID [facility] Albuterol/Ipratropium 3 ml 10/02/20 17:12 10/09/20 03:48 Ipratropium-Albuterol 3 Ml Neb INHALATION 3 ml RT-TID PRN Administration Shortness Of Breath Or Wheezing Alprazolam 0.25 mg 10/02/20 17:13 10/09/20 13:35 Alprazolam 0.25 Mg Tab PO 0.25 mg TID PRN Administration Anxiety Atorvastatin Calcium 10 mg 10/02/20 21:00 10/09/20 21:35 Atorvastatin 10 Mg Tab PO 10 mg HS [facility] Administration Azithromycin 500 mg 10/06/20 09:00 10/09/20 09:10 Azithromycin 500 Mg Tab PO 500 mg DAILY [facility] Administration Ergocalciferol 1,250 mcg 10/03/20 09:00 10/09/20 09:10 Ergocalciferol 1,250 Mcg (50,000 Iu) Capsule PO 1,250 mcg DAILY [facility] Administration Folic Acid 1 mg 10/06/20 12:00 10/09/20 14:36 Folic Acid 1 Mg Tab PO Not Given DAILY@1200 [facility] Hydromorphone HCl 0.5 mg 10/02/20 17:13 10/08/20 14:52 Hydromorphone 0.5 Mg/0.5 Ml Syringe IVP 0.5 mg Q6HR PRN Administration Severe Pain Ceftriaxone Sodium 1 gm/ 50 mls @ 100 mls/hr 10/03/20 09:00 10/09/20 09:09 Sodium Chloride IVPB 100 mls/hr Q24HR [facility] Administration Sodium Chloride 1,000 mls @ 100 mls/hr 10/03/20 15:45 10/09/20 14:36 Saline 0.9% IV Not Given .Q10H [facility] Fluconazole/Sodium Chloride 50 mls @ 50 mls/hr 10/05/20 19:00 10/09/20 10:33 100 mg/ IV Solution IVPB 50 mls/hr DAILY [facility] Administration Insulin Aspart 0 unit 10/05/20 21:00 10/09/20 21:36 Insulin Aspart (Novolog) 100 Unit/Ml Vial SQ 1 unit ACHS [facility] Administration Protocol Lactobacillus Acidoph/Bulgaricus 1 each 10/03/20 09:00 10/09/20 10:33 Lactobacillus Acidoph & Bulgar 1 Each Packet PO 1 each DAILY [facility] Administration Magnesium Hydroxide 2,400 mg 10/07/20 12:20 Magnesium Hydroxide 2,400 Mg/10 Ml Cup PO BID PRN Constipation Metoprolol Tartrate 50 mg 10/06/20 21:00 10/09/20 21:35 Metoprolol Tartrate 50 Mg Tab PO 50 mg BID [facility] Administration Multivitamins 1 each 10/06/20 12:00 10/09/20 14:36 Multivitamins, Thera 1 Each Tab PO Not Given DAILY@1200 [facility] Nitroglycerin 0.4 mg 10/02/20 13:14 10/09/20 09:10 Nitroglycerin Sl Tabs 0.4 Mg Tab SUBLINGUAL 0.4 mg Q5M PRN Administration Chest Pain Non-Formulary Medication 1 cap 10/03/20 09:00 10/09/20 10:07 Vitamin B Complex [Vitamin B Complex] PO Not Given DAILY [facility] Non-Formulary Medication 1 tab 10/02/20 21:00 10/09/20 21:32 Acetaminophen/Diphenhydramine [Tylenol Pm 500-25mg] PO Not Given [facility] Nystatin 500,000 unit 10/05/20 14:15 10/09/20 17:50 Nystatin 100,000 Unit/Ml Susp 500,000 Unit/5 Ml Cup PO Not Given QID [facility] Pantoprazole Sodium 40 mg 10/09/20 07:30 10/09/20 09:08 Pantoprazole 40 Mg Tablet PO 40 mg AC-[id number] [facility] Administration Senna 8.6 mg 10/06/20 13:45 10/09/20 21:35 Sennosides 8.6 Mg Tab PO 8.6 mg BID [facility] Administration Temazepam 15 mg 10/02/20 17:13 10/07/20 21:34 Temazepam 15 Mg Cap PO 15 mg HS PRN Administration Insomnia Thiamine HCl 100 mg 10/06/20 12:00 10/09/20 14:36 Thiamine 100 Mg Tab PO Not Given DAILY@1200 [facility] Objective - Vital Signs Vital signs: Vital Signs Temp 98.4 F 10/09/20 12:16 Pulse 79 10/09/20 14:00 Resp 16 10/09/20 14:00 BP 116/73 10/09/20 12:16 Pulse Ox 97 10/09/20 12:16 Intake & Output 10/08/20 10/09/20 10/09/20 18:59 06:59 18:59 Intake Total 250 Output Total 200 400 Balance 50 -400 Weight 108 kg 107 kg 108 kg Intake: Intake, IV Titration 250 Amount Heparin Sod,Pork in 0.45% 250 NaCl 25,000 unit In 0.45 % NaCl 1 250ml.bag @ 9.19 UNITS/KG/HR 10.004 mls/ hr IV .Q24H [facility] Rx#: [id number] Oral 0 Output: Urine 200 400 Post Void Residual 0 Other: Voiding Method Bedside Commode Urinal Urinal # Voids 1 - Exam -GENERAL: The patient is alert and oriented x3, not in any acute distress. Generally weak HEENT: Pupils are round and equally reacting to light. EOMI. No scleral icterus. No conjunctival pallor. Normocephalic, atraumatic. No pharyngeal erythema. No thyromegaly. CARDIOVASCULAR: S1 and S2 present. No murmurs, rubs, or gallops. PULMONARY: Chest is clear to auscultation, no wheezing or crackles. ABDOMEN: Soft, nontender, nondistended, normoactive bowel sounds. No palpable organomegaly. MUSCULOSKELETAL: No joint swelling or deformity. EXTREMITIES: No cyanosis, clubbing, or pedal edema. NEUROLOGICAL: Gross neurological examination did not reveal any focal deficits. SKIN: No rashes. no petechiae. - Labs CBC & Chem 7: 10/09/20 06:11 10/09/20 06:11 Labs: Abnormal Lab Results - Last 24 Hours (Table) 10/08/20 10/08/20 10/09/20 Range/Units 17:23 21:16 06:11 WBC (3.8-10.6) k/uL RBC (4.30-5.90) m/uL Hgb (13.0-17.5) gm/dL APTT (22.0-30.0) sec Chloride 109 H (98-107) mmol/L Carbon Dioxide 21 L (22-30) mmol/L BUN 22 H (9-20) mg/dL Glucose 156 H (74-99) mg/dL POC Glucose (mg/dL) 137 H 204 H (75-99) mg/dL 10/09/20 10/09/20 10/09/20 Range/Units 06:11 06:11 07:12 WBC 70.4 H* (3.8-10.6) k/uL RBC 4.05 L (4.30-5.90) m/uL Hgb 12.4 L (13.0-17.5) gm/dL APTT 41.1 H (22.0-30.0) sec Chloride (98-107) mmol/L Carbon Dioxide (22-30) mmol/L BUN (9-20) mg/dL Glucose (74-99) mg/dL POC Glucose (mg/dL) 156 H (75-99) mg/dL 10/09/20 Range/Units 11:35 WBC (3.8-10.6) k/uL RBC (4.30-5.90) m/uL Hgb (13.0-17.5) gm/dL APTT (22.0-30.0) sec Chloride (98-107) mmol/L Carbon Dioxide (22-30) mmol/L BUN (9-20) mg/dL Glucose (74-99) mg/dL POC Glucose (mg/dL) 163 H (75-99) mg/dL Microbiology - Last 24 Hours (Table) 10/02/20 18:06 Blood Culture - Final Blood No Growth after 144 hours Assessment and Plan Assessment: 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 Rate is controlled Hyperlipidemia Hypertension Coronary artery disease with History of bypass and stent placement Plan: This is a pleasant 70 years old male with multiple metastatic disease involving the lung lymph node, liver and bone. The patient is scheduled for an outpatient liver biopsy on this coming , Patient is adamant about going to rehab and he wants to go home, he wants commode and wheelchair to be provided Labs and medication were reviewed.. Continue same treatment. Continue with symptomatic treatment. Resume home medication. Monitor lytes and vitals. DVT and GI prophylaxis. Further recommendations as per clinical course of the patient DVT prophylaxis: heparin GI Prophylaxis: Ppi PT/OT: Patient refused rehab. He wants to go home Prognosis is guarded
[2020-10-09] MEDS ORDERED: QUEtiapine 25 MG TAB PO PRN (22:02)
[2020-10-09] MEDS ORDERED: HEPARIN SODIUM 1,000 UN/ML (10ML VL) IV PRN (23:09)
[2020-10-09] MEDS ORDERED: HEPARIN SODIUM 1,000 UN/ML (10ML VL) IV ONE (23:09)
[2020-10-09] MEDS: HEPARIN SOD,PORK IN 0.45% NACL 25,000 UNIT in 0.45% NACL 1 250ML.BAG IV SCH (23:33)
[2020-10-10] MEDS: HYDROcodone/APAP 5-325MG 1 EACH TAB PO PRN (05:57)
[2020-10-10 07:20] LABS: Glucose,Whole Blood 143 mg/dL (75-99)
[2020-10-10 07:32] LABS: HCT 38.9 % (39.0-53.0); HGB 12.7 gm/dL (13.0-17.5); MCH 32.2 pg (25.0-35.0); MCHC 32.5 g/dL (31.0-37.0); MCV 98.9 fL (80.0-100.0); Mean Platelet Volume 8.2; Platelet Count 216 k/uL (150-450); RBC 3.94 m/uL (4.30-5.90); RDW 14.5 % (11.5-15.5)
[2020-10-10 07:44] LABS: ALT 189 U/L (4-49); AST 83 U/L (17-59); African American GFR (CKD) >90 (>60 ml/min/1.73 sqM); Albumin 2.7 g/dL (3.5-5.0); Albumin/Globulin Ratio 0.9; Alkaline Phosphatase 309 U/L (38-126); Anion Gap 7 mmol/L; Blood Urea Nitrogen 26 mg/dL (9-20); Calcium 9.1 mg/dL (8.4-10.2); Carbon Dioxide 24 mmol/L (22-30); Chloride 111 mmol/L (98-107); Globulin 2.9 g/dL; Glucose 142 mg/dL (74-99); Non-African American GFR(CKD) 84 (>60 ml/min/1.73 sqM); Potassium 3.8 mmol/L (3.5-5.1); Sodium 142 mmol/L (137-145); Total Bilirubin 1.3 mg/dL (0.2-1.3); Total Protein 5.6 g/dL (6.3-8.2)
[2020-10-10 07:48] LABS: INR 1.3 (<1.2); Partial Thromboplastin Time 44.6 sec (22.0-30.0); Prothrombin Time 13.6 sec (9.0-12.0)
[2020-10-10 07:53] LABS: WBC 79.7 k/uL (3.8-10.6)
[2020-10-10] MEDS: INSULIN ASPART (NovoLOG) 100 UNIT/ML VIAL SQ SCH ×4 (08:45→20:45)
[2020-10-10] MEDS: LACTOBACILLUS ACIDOPH & BULGAR 1 EACH PACKET PO SCH (08:46)
[2020-10-10] MEDS: METOPROLOL TARTRATE 50 MG TAB PO SCH ×2 (08:47→20:44)
[2020-10-10] MEDS: AZITHROMYCIN 500 MG TAB PO SCH (08:47)
[2020-10-10] MEDS: ERGOCALCIFEROL 1,250 MCG (50,000 IU) CAPSULE PO SCH (08:47)
[2020-10-10] MEDS: NYSTATIN 100,000 UNIT/ML SUSP 500,000 UNIT/5 ML CUP PO SCH ×4 (08:47→20:46)
[2020-10-10] MEDS: PANTOPRAZOLE 40 MG TABLET PO SCH (08:47)
[2020-10-10] MEDS: THIAMINE 100 MG TAB PO SCH (08:48)
[2020-10-10] MEDS: SENNOSIDES 8.6 MG TAB PO SCH ×2 (08:48→20:44)
[2020-10-10] MEDS: NON FORMULARY DRUG (Vitamin B Complex [Vitamin B Complex] 1 EACH Capsule) PO SCH (08:48)
[2020-10-10] MEDS: FOLIC ACID 1 MG TAB PO SCH (08:48)
[2020-10-10] MEDS: MULTIVITAMINS, THERA 1 EACH TAB PO SCH (08:48)
[2020-10-10] MEDS: FLUCONAZOLE IN NACL,ISO-OSM 100 MG in SALINE 1 50ML.BAG IVPB SCH (10:11)
[2020-10-10] MEDS: SODIUM CHLORIDE 0.9% 1,000 ML IV SCH (10:12)
[2020-10-10] MEDS: IPRATROPIUM-ALBUTEROL 3 ML NEB INHALATION SCH ×3 (10:58→19:54)
[2020-10-10] MEDS: ALPRAZolam 0.25 MG TAB PO PRN (11:04)
--- NOTE | 2020-10-10 11:15 | P.PN ---
Subjective Progress Note Date: 10/10/20 Principal diagnosis: Suspect metastatic disease This is a 70-year-old white male familiar to my service. with history of multiple medical problems including coronary artery disease and previous CABG and stent placement. History of abdominal aortic aneurysm and previous stent p lacement, history of hypertension, mild asymptomatic COPD, remote smoking history quit smoking over 20 years ago. Patient normally sees me on a regular basis in the office, and I saw this patient basically about a month ago. Patient was recovering from Covid 19 infection which she had in June, and did not require any hospitalization. When I saw him about a month ago, follow- up chest x-ray was done in the office, and it was basically unremarkable. The chest x-ray was dated 09/03/2020, and it showed peripheral increased lung markings, chronic changes stable and it was compared to the chest x-ray that was done on 06/27/2020. On that specific chest x-ray, there was no suspicion of any findings to suggest malignancy. On 10/02/2020, patient was seen in the ER, and he had multiple constitutional symptoms including weakness, unable to ambulate, patient has been losing weight over the last month or so. A chest x-ray was done questioned some nodularity in the left lung, and after I reviewed the chest x-ray I recommended a CT angiogram of the chest. This came back quite abnormal showing extensive enlargement of lymph nodes throughout the mediastinum and right hilar region it also showed right apical and posterior right lower nodules. It also showed extensive multiple hypodense lesions within the liver compatible with metastasis. Patient had no previous history of malignancy. And over the years he declined having colonoscopy. Patient smoked until about 20 years ago, and he had family history of lung cancer./Father. Considering the findings on the CT of the chest and on the chest x-ray, I was asked to see this patient on consultation. Venous Doppler on this admission showed limited deep vein thromboses in the left lower extremity. CT of the abdomen and pelvis showed mostly numerous liver lesions suggestive of metastatic disease. Reevaluated today on 10/04/2020, patient continues to feel weakness. Denies any cough, no fever, no chills, no hemoptysis. Continues to have leukocytosis with WBC count of 48.2 hemoglobin is 12.1. Remains on heparin for his deep vein t hrombosis, calcium is down to 11.2 from 12.6 yesterday. Ionized calcium yesterday was 6.7. Pro-calcitonin is 0.55, patient remains empirically on antibiotics in the form of Rocephin and Zithromax. Blood cultures and sputum cultures are negative so far since admission. Patient is supposedly scheduled to have CT guided liver biopsy or ultrasound guided liver biopsy tomorrow however he is on heparin and that has to be put on hold for 2 hours prior to the procedure. today is at bedside, and I discussed his condition with the at bedside. And explained to her that we are working him up for possible metastatic disease. Primary remains unknown, but I'm suspecting that we may be dealing with small cell lung cancer. Progress note dated 10/05/2020. This is a 70-year-old male, who sees my partner as a primary. He has a history of multiple medical problems including coronary artery disease, with previous bypass grafting, and stent placement, abdominal aortic aneurysm, with previous stent placement, hypertension, mild asymptomatic COPD, and a remote history of tobacco use. The patient did have COVID 19 infection in June. More recently, he is currently being evaluated for possible malignancy, may be lung cancer. The CT that was done showed extensive enlargement of lymph nodes throughout the mediastinum and right hilar region, and, it was discovered that he had metastatic deposits and multiple bony areas, and in the liver. Dr. Heck was concerned about small cell lung cancer. The only new labs today or a PT of 11.7, INR 1.1, PTT of 44.2. The patient had recently been on a factor X a inhibitor. The bone scan showed potential metastatic deposits in the left posterior 10th rib, inferior right scapula, and subtrochanteric right femur. In addition, there is an abnormal signal in the calvarium. Progress note dated 10/06/2020. 70-year-old gentleman, currently being evaluated for possible metastatic colon cancer. Currently, the patient's awaiting a liver biopsy. Currently, he has no major complaints. He denies any shortness of breath, chest pain or chest discomfort, fever, chills, cough, or phlegm production. The results of the computed tomography scan and bone scan were shared with the patient. I did mention to him that the determination of treatment options depend on the type of cancer that is proven. This can only be done with a biopsy. Interventional radiology is planning to biopsy one of the liver lesions. White count 58.5, hemoglobin 12.5, hematocrit 38.5, and platelet count 263,000. PTT is 47.7. Sodium 139, potassium 3.9, chlorides 110, CO2 20, BUN is 20, and creatinine is 0.68. Calcium is 10.7. Albumin 2.9. Progress note dated 10/07/2020. 70-year-old gentleman, currently being evaluated for possible metastatic lung cancer. The patient is awaiting a liver biopsy. The patient was previously on a factor X a inhibitor, and also aspirin. Apparently, interventional radiology does not want to do liver biopsy until October 12, which is this upcoming Monday. The patient doesn't really want to sit in the hospital until then, and I was wondering whether or not it would be okay to send him home on [employer] subcu twic e a day as a bridge, so that he could still get his liver biopsy on Monday. Apparently that will be explored by the primary service tomorrow. Currently he is on 3 L nasal cannula. White count of 65.5, hemoglobin 12.2, hematocrit 36.5, and platelet count is 284,000. Progress note dated 10/08/2020. 70-year-old gentleman probably be evaluated for possible metastatic lung cancer. The patient is awaiting a liver biopsy. The patient was previously on a factor X a inhibitor and also aspirin. Interventional radiology did not wanted to the liver biopsy before October 12. The patient himself does not want to sit in the hospital till then. I mention yesterday to the nurses, the patient could be discharged on low molecular weight heparin, given subcutaneously, twice a day, as a bridge until he has a liver biopsy. The primary service was going to check into that today. Today's white count is 73.8, hemoglobin 12, hematocrit 37, and platelet count 293,000. PTT is 64.9. Patient was reevaluated today on 10/09/2020, patient has not had his liver biopsy yet. I believe is scheduled not to have it done next Monday. In the meantime the patient is having intermittent episodes of confusion, being addressed by neurology on the case. Workup so far seems to be negative. Patient is resting, he is on 4 L nasal cannula, O2 sats is 96%. Patient is having a leukemoid reaction with WBC count of 70.4. Elective lites are normal, his calcium is down to 9.5. Patient did receive treatment for his hypercalcemia. Considering the calcium is better now, I will go ahead and discontinue his Solu-Medrol as it may be contributing to his mental status change Patient was reevaluated today on 10/10/2020, basically about the same, remained generally weak, patient is resting, he is on few liters nasal cannula. Does not seem to be in distress, but he has intermittent episodes of confusion. WBC coun t continues to rise in the 79.7 today, hemoglobin is 12.7. PTT is 44.6. Elective lites are normal renal profile is normal liver enzymes are rising with AST of 83 ALT of 189 alkaline phosphatase of 309 Objective - Vital Signs Vital signs: Vital Signs Temp 98.6 F 10/10/20 05:40 Pulse 85 10/10/20 05:40 Resp 28 H 10/10/20 05:40 BP 150/80 10/10/20 05:40 Pulse Ox 90 L 10/10/20 05:40 Intake & Output 10/09/20 10/10/20 10/10/20 18:59 06:59 18:59 Intake Total 660 101.5 Output Total 400 Balance -400 660 101.5 Weight 108 kg Intake: Intake, IV Titration 220 101.5 Amount Heparin Sod,Pork in 0.45% 100 101.5 NaCl 25,000 unit In 0.45 % NaCl 1 250ml.bag @ 9. 2593 UNITS/KG/HR 10 mls/ hr IV .Q24H [facility] Rx#: [id number] Sodium Chloride 0.9% 1, 120 000 ml @ 100 mls/hr IV . Q10H [facility] Rx#:[id number] Oral 440 Output: Urine 400 Post Void Residual 0 Other: Voiding Method Urinal Urinal Incontinent # Voids 1 2 - Exam Physical Exam: Revealed 70-year-old white male, On 4 L nasal cannula. Head: Atraumatic, normocephalic. HEENT:[Neck is supple.] [No neck masses.] [No thyromegaly.] [No JVD.] Chest: [Clear throughout, no crackles, no rhonchi, no wheezes.] Cardiac Exam: [Normal S1 and S2, no S3 gallop, no murmur.] Abdomen: [Soft, nontender, no megaly, no rebound, no guarding, normal bowel sounds.] Extremities: [No clubbing, no edema, no cyanosis.] Neurological Exam: [No focal neurologic deficit.] Alert and oriented 3. Intermittently confused Psychiatric: Normal mood affect and normal mental status examination. Skin: No rashes. - Labs CBC & Chem 7: 10/10/20 06:53 10/10/20 06:53 Labs: Abnormal Lab Results - Last 24 Hours (Table) 10/09/20 10/09/20 10/09/20 Range/Units 11:35 17:11 20:53 WBC (3.8-10.6) k/uL RBC (4.30-5.90) m/uL Hgb (13.0-17.5) gm/dL Hct (39.0-53.0) % PT (9.0-12.0) sec INR (<1.2) APTT (22.0-30.0) sec Chloride (98-107) mmol/L BUN (9-20) mg/dL Glucose (74-99) mg/dL POC Glucose (mg/dL) 163 H 137 H 147 H (75-99) mg/dL AST (17-59) U/L ALT (4-49) U/L Alkaline Phosphatase (38-126) U/L Total Protein (6.3-8.2) g/dL Albumin (3.5-5.0) g/dL 10/10/20 10/10/20 10/10/20 Range/Units 06:53 06:53 06:53 WBC 79.7 H* (3.8-10.6) k/uL RBC 3.94 L (4.30-5.90) m/uL Hgb 12.7 L (13.0-17.5) gm/dL Hct 38.9 L (39.0-53.0) % PT 13.6 H (9.0-12.0) sec INR 1.3 H (<1.2) APTT 44.6 H (22.0-30.0) sec Chloride 111 H (98-107) mmol/L BUN 26 H (9-20) mg/dL Glucose 142 H (74-99) mg/dL POC Glucose (mg/dL) (75-99) mg/dL AST 83 H (17-59) U/L ALT 189 H (4-49) U/L Alkaline Phosphatase 309 H (38-126) U/L Total Protein 5.6 L (6.3-8.2) g/dL Albumin 2.7 L (3.5-5.0) g/dL 10/10/20 Range/Units 07:13 WBC (3.8-10.6) k/uL RBC (4.30-5.90) m/uL Hgb (13.0-17.5) gm/dL Hct (39.0-53.0) % PT (9.0-12.0) sec INR (<1.2) APTT (22.0-30.0) sec Chloride (98-107) mmol/L BUN (9-20) mg/dL Glucose (74-99) mg/dL POC Glucose (mg/dL) 143 H (75-99) mg/dL AST (17-59) U/L ALT (4-49) U/L Alkaline Phosphatase (38-126) U/L Total Protein (6.3-8.2) g/dL Albumin (3.5-5.0) g/dL Assessment and Plan Assessment: Impression: Multiple constitutional symptoms mostly likely secondary to metastatic disease, 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 Multiple metastatic lesions in the liver and significant mediastinal adenopathy, Limited vein thromboses in the left lower extremity. History of covid 19 infection in June. History of COPD. Ex-smoker. History of coronary artery disease and previous CABG and stent. History of abdominal aortic aneurysm. History of cardiac arrest in my office requiring brief CPR. Elevated sed rate most likely secondary to malignancy. Hypercalcemia most likely secondary to underlying malignancy. History of abdominal aortic aneurysm and stenting. Recommendation: Continue to monitor calcium. Continue present supportive care measures. ultrasound or CT-guided needle biopsy of the liver lesions , this scheduled to be done on Monday. Continue anticoagulation therapy Past methylprednisolone. Prognosis is extremely poor and guarded Time with Patient: Less than 30
[2020-10-10 12:27] LABS: Glucose,Whole Blood 163 mg/dL (75-99)
[2020-10-10 12:33] LABS: Band Neutrophils % 4 %; Lymphocytes # (M) 2.39 k/uL (1.0-4.8); Monocytes # (M) 2.39 k/uL (0-1.0); Myelocytes % 1 %; Neutrophils % (M) 90 %; Nucleated Red Blood Cells 0 /100 WBC (0-0); Total Cells Counted 200
--- NOTE | 2020-10-10 13:52 | XR ---
EXAMINATION TYPE: XR chest 1V portable DATE OF EXAM: 10/10/2020 COMPARISON: 10-21 INDICATION: Short of breath TECHNIQUE: Single frontal view of the chest is obtained. FINDINGS: The heart size is enlarged. The pulmonary vasculature is normal. Mid and lower lung field infiltrates are present. Some right upper lobe peripheral infiltrate is pres ent. Findings have worsened over the interval. IMPRESSION: 1. Worsening bilateral lung infiltrates. Correlate for atypical pneumonia
--- NOTE | 2020-10-10 14:20 | PN ---
PROGRESS NOTE DATE OF SERVICE: 10/10/2020 CHIEF COMPLAINT: Very weak. INTERVAL HISTORY: Nakul was seen today as a followup. He is very weak and lethargic. His is at bedside. He also has not been responding to her as well. CURRENT MEDICATION: Include Tylenol as needed, Delmita 5/325 every 6 hours as needed, DuoNeb nebulizer, Xanax 0.25 t.i.d. as needed, Lipitor 10 mg q.h.s. He is on Zithromax 500 mg daily, vitamin D2, Diflucan 50 mg IV piggyback daily, folic acid 1 mg daily. He is on IV heparin drip. Dilaudid 0.5 mg every 6 hours as needed, NovoLog sliding scale, lactobacillus acidophilus one daily, Milk of Magnesia b.i.d. as needed for constipation, Lopressor 50 mg b.i.d., Nitrostat as needed, Tylenol as needed, B complex daily, Protonix 40 mg once a day, Seroquel 25 mg at bedtime, Senokot b.i.d., Restoril 15 mg q.h.s. as needed for insomnia, B1 100 mg daily. PHYSICAL EXAMINATION: He appears to be very lethargic. He is not answering questions appropriately. His vital signs show temperature 98.7, blood pressure 150/80, respiration 28. HEENT: Normocephalic, atraumatic. NECK: Supple. Lungs reveal crackles at the bases. ABDOMEN: Soft. No obvious tenderness. Extremities reveal 1+ edema. RADIOGRAPHIC DATA: Brain MRI done yesterday revealed evidence of microvascular disease but no evidence of metastatic disease. LABORATORY DATA: Sodium 142, potassium 3.8, chloride 111, BUN 26, creatinine 0.91, total bilirubin is 1.3, AST 83, ALT 189, alkaline phosphatase is 309. His calcium today is 9.1. IMPRESSION: 1. Clinical and radiographic picture highly suggestive of metastatic malignancy. 2. Altered mental status. There is no reported evidence of metastatic disease on his recent brain MRI and this could be related to underlying malignancy and hypercalcemia and also related to medication. 3. Hypercalcemia. This has improved. 4. Leukocytosis, this is likely reactive to underlying malignancy. He is covered with antibiotics at this point in time. 5. Deep venous thrombosis, on IV heparin. RECOMMENDATION: 1. Continue IV heparin. 2. Awaiting ultrasound-guided liver biopsy scheduled for Monday. 3. Continue to monitor for hypercalcemia. 4. Consider adjusting his current medication. Hopefully, he may have some improvement in his mental status. May use Delmita as needed for pain now and would discontinue Dilaudid and also will consider holding off the Seroquel for now. 5. Overall prognosis appears to be very guarded. I did have a long discussion with the patient and who was at bedside and the decision was made for NO CODE. Thank you very much. MMNIRALIL / BARBARAN: [id number] /
[2020-10-10] MEDS ORDERED: FUROSEMIDE 10 MG/ML 4 ML VIAL IV STA (15:41)
[2020-10-10] MEDS ORDERED: QUEtiapine 25 MG TAB PO PRN (15:47)
--- NOTE | 2020-10-10 15:58 | P.PN ---
Subjective This is a pleasant 70 years old male with past medical history of asthma/COPD, hypertension, hyperlipidemia. To presents with shortness of breath. 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 No other significant comorbidity including chronic atrial fibrillation was on Eliquis at home and currently he is on heparin drip, also patient with left DVT. Also he has evidence of right lower lobe pulmonary infiltrate suspicious for pneumonia and he is currently covered with Zithromax and ceftriaxone. Also he is on Solu- Medrol for his possible COPD exacerbation. He is currently today was sitting in chair, feeling generally weak, some dyspnea and little coughing. Also he was complaining from constipation and mild back pain. He is planned to get a liver biopsy to decide the treatment with chemotherapy, and patient biopsy could be done this Monday however benefits going to be done as an outpatient is going to be next Monday on 10/16, at the same time patient refused rehab and he wants to go home with a wheelchair and comorbid however is hard for his family to take care of him given his size and comorbidities. He is hemodynamically stable. Labs showed leukocytosis of 70 3.8K, hemoglobin 12. Platelets are normal. Glucose controlled 10/09/2020 Patient developed tachycardia thought to be A. fib, also he has some chest pain and EKG was obtained and showed some ST T changes thought is to do digitalis effect. Repeat troponin was done and was negative. Better on the morning he was more confused and disoriented, he was pulling IV line and the tubes, his heart rate jumped 120-160 Because of his period of confusion code stroke was called, however patient shortly thereafter returned to his full consciousness, and workup was negative including CT of the brain, CT of the brain and MRI of the brain, cerebrospinal more details showing still extensive high white cell count at 70 K. However his oxygen requirement came down to 2 L/m from 4 L yesterday Patient remains on Zithromax, fluconazole, ceftriaxone and normal saline at 100 mL/h Heparin was discontinued transiently and with negative MRI it can be resumed 10/10/2020 Patient was agitated overnight and this morning, he was given Seroquel last night and Xanax this morning, this morning he is a sleepy, otherwise very briefly on verbal stimuli some go back to sleep right away. Patient was noticed to be decreasing with some tachypnea. Repeat chest x-ray today showing pulmonary congestion suspected as bilateral infiltrate, normal saline at 100 mL per hour was stopped, 1 dose of Lasix given last night and this morning. He is saturating 94% on 4 L oxygen via nasal cannula. He has persistent leukocytosis and 79K,. He continue on fluconazole and Zithromax. Ceftriaxone course was finished. He is currently on heparin drip. Patient is expected to have a liver biopsy on Monday wanted the patient to be DO NOT RESUSCITATE Discussed with staff Review of systems: Patient is confused today and could not provide information Active Medications Generic Name Dose Route Start Last Admin Trade Name Freq PRN Reason Stop Dose Admin Acetaminophen 650 mg 10/02/20 17:08 10/09/20 11:06 Acetaminophen Tab 325 Mg Tab PO 650 mg Q4H PRN Administration Pain or Fever > 100.5 Hydrocodone Bitart/Acetaminophen 1 each 10/02/20 17:13 10/10/20 05:57 Hydrocodone/Apap 5-325mg 1 Each Tab PO 1 each Q6HR PRN Administration Pain Albuterol/Ipratropium 3 ml 10/02/20 20:00 10/10/20 10:59 Ipratropium-Albuterol 3 Ml Neb INHALATION Not Given RT-TID ARMANDO Albuterol/Ipratropium 3 ml 10/02/20 17:12 10/09/20 03:48 Ipratropium-Albuterol 3 Ml Neb INHALATION 3 ml RT-TID PRN Administration Shortness Of Breath Or Wheezing Atorvastatin Calcium 10 mg 10/02/20 21:00 10/09/20 21:35 Atorvastatin 10 Mg Tab PO 10 mg HS ARMANDO Administration Azithromycin 500 mg 10/06/20 09:00 10/10/20 08:47 Azithromycin 500 Mg Tab PO 500 mg DAILY ARMANDO Administration Ergocalciferol 1,250 mcg 10/03/20 09:00 10/10/20 08:47 Ergocalciferol 1,250 Mcg (50,000 Iu) Capsule PO 1,250 mcg DAILY ARMANDO Administration Folic Acid 1 mg 10/06/20 12:00 10/10/20 08:48 Folic Acid 1 Mg Tab PO 1 mg DAILY@1200 ARMANDO Administration Heparin Sodium (Porcine) 0 unit 10/09/20 23:09 Heparin Sodium 1,000 Un/Ml (10ml Vl) IV PER PROTOCOL PRN Low PTT Protocol Fluconazole/Sodium Chloride 50 mls @ 50 mls/hr 10/05/20 19:00 10/10/20 10:11 100 mg/ IV Solution IVPB 50 mls/hr DAILY ARMANDO Administration Heparin Sodium/Sodium Chloride 250 mls @ 10 mls/hr 10/09/20 23:15 10/10/20 09:42 25,000 unit/ Sodium Chloride IV 9.26 units/kg/hr .Q24H ARMANDO 10 mls/hr Titration Protocol 9.2593 UNITS/KG/HR Insulin Aspart 0 unit 10/05/20 21:00 10/10/20 13:38 Insulin Aspart (Novolog) 100 Unit/Ml Vial SQ Not Given ACHS ARMANDO Protocol Lactobacillus Acidoph/Bulgaricus 1 each 10/03/20 09:00 10/10/20 08:46 Lactobacillus Acidoph & Bulgar 1 Each Packet PO Not Given DAILY ARMANDO Lorazepam 0.5 mg 10/10/20 15:49 Lorazepam 0.5 Mg Tab PO HS PRN Agitation Magnesium Hydroxide 2,400 mg 10/07/20 12:20 Magnesium Hydroxide 2,400 Mg/10 Ml Cup PO BID PRN Constipation Metoprolol Tartrate 50 mg 10/06/20 21:00 10/10/20 08:47 Metoprolol Tartrate 50 Mg Tab PO 50 mg BID ARMANDO Administration Multivitamins 1 each 10/06/20 12:00 10/10/20 08:48 Multivitamins, Thera 1 Each Tab PO 1 each DAILY@1200 ARMANDO Administration Nitroglycerin 0.4 mg 10/02/20 13:14 10/09/20 09:10 Nitroglycerin Sl Tabs 0.4 Mg Tab SUBLINGUAL 0.4 mg Q5M PRN Administration Chest Pain Non-Formulary Medication 1 cap 10/03/20 09:00 10/10/20 08:48 Vitamin B Complex [Vitamin B Complex] PO Not Given DAILY ARMANDO Non-Formulary Medication 1 tab 10/02/20 21:00 10/09/20 21:32 Acetaminophen/Diphenhydramine [Tylenol Pm 500-25mg] PO Not Given HS ARMANDO Nystatin 500,000 unit 10/05/20 14:15 10/10/20 13:38 Nystatin 100,000 Unit/Ml Susp 500,000 Unit/5 Ml Cup PO Not Given QID ARMANDO Pantoprazole Sodium 40 mg 10/09/20 07:30 10/10/20 08:47 Pantoprazole 40 Mg Tablet PO 40 mg AC-[id number] [facility] Administration Senna 8.6 mg 10/06/20 13:45 10/10/20 08:48 Sennosides 8.6 Mg Tab PO 8.6 mg BID ARMANDO Administration Thiamine HCl 100 mg 10/06/20 12:00 10/10/20 08:48 Thiamine 100 Mg Tab PO 100 mg DAILY@1200 ARMANDO Administration Objective - Vital Signs Vital signs: Vital Signs Temp 98.3 F 10/10/20 11:21 Pulse 76 10/10/20 11:21 Resp 32 H 10/10/20 11:21 BP 163/79 10/10/20 11:21 Pulse Ox 94 L 10/10/20 11:21 Intake & Output 10/09/20 10/10/20 10/10/20 18:59 06:59 18:59 Intake Total 660 101.5 Output Total 400 Balance -400 660 101.5 Weight 108 kg Intake: Intake, IV Titration 220 101.5 Amount Heparin Sod,Pork in 0.45% 100 101.5 NaCl 25,000 unit In 0.45 % NaCl 1 250ml.bag @ 9. 2593 UNITS/KG/HR 10 mls/ hr IV .Q24H [facility] Rx#: [id number] Sodium Chloride 0.9% 1, 120 000 ml @ 100 mls/hr IV . Q10H [facility] Rx#:[id number] Oral 440 Output: Urine 400 Post Void Residual 0 Other: Voiding Method Urinal Urinal Urinal Incontinent Incontinent # Voids 1 2 - Exam -GENERAL: The patient is confused and lethargic, not in any acute distress. Generally weak HEENT: Pupils are round and equally reacting to light. EOMI. No scleral icterus. No conjunctival pallor. Normocephalic, atraumatic. No pharyngeal erythema. No thyromegaly. CARDIOVASCULAR: S1 and S2 present. No murmurs, rubs, or gallops. -PULMONARY: Chest is clear to auscultation, no wheezing or crackles. Bilateral crepitation ABDOMEN: Soft, nontender, nondistended, normoactive bowel sounds. No palpable organomegaly. MUSCULOSKELETAL: No joint swelling or deformity. EXTREMITIES: No cyanosis, clubbing, or pedal edema. NEUROLOGICAL: Gross neurological examination did not reveal any focal deficits. SKIN: No rashes. no petechiae. - Labs CBC & Chem 7: 10/10/20 06:53 10/10/20 06:53 Labs: Abnormal Lab Results - Last 24 Hours (Table) 10/09/20 10/09/20 10/10/20 Range/Units 17:11 20:53 06:53 WBC 79.7 H* (3.8-10.6) k/uL RBC 3.94 L (4.30-5.90) m/uL Hgb 12.7 L (13.0-17.5) gm/dL Hct 38.9 L (39.0-53.0) % Neutrophils # (Manual) 74.90 H (1.3-7.7) k/uL Monocytes # (Manual) 2.39 H (0-1.0) k/uL Eosinophils # (Manual) 0.80 H (0-0.7) k/uL Myelocytes # (Manual) 0.80 H (0) k/uL PT (9.0-12.0) sec INR (<1.2) APTT (22.0-30.0) sec Chloride (98-107) mmol/L BUN (9-20) mg/dL Glucose (74-99) mg/dL POC Glucose (mg/dL) 137 H 147 H (75-99) mg/dL AST (17-59) U/L ALT (4-49) U/L Alkaline Phosphatase (38-126) U/L Total Protein (6.3-8.2) g/dL Albumin (3.5-5.0) g/dL 10/10/20 10/10/20 10/10/20 Range/Units 06:53 06:53 07:13 WBC (3.8-10.6) k/uL RBC (4.30-5.90) m/uL Hgb (13.0-17.5) gm/dL Hct (39.0-53.0) % Neutrophils # (Manual) (1.3-7.7) k/uL Monocytes # (Manual) (0-1.0) k/uL Eosinophils # (Manual) (0-0.7) k/uL Myelocytes # (Manual) (0) k/uL PT 13.6 H (9.0-12.0) sec INR 1.3 H (<1.2) APTT 44.6 H (22.0-30.0) sec Chloride 111 H (98-107) mmol/L BUN 26 H (9-20) mg/dL Glucose 142 H (74-99) mg/dL POC Glucose (mg/dL) 143 H (75-99) mg/dL AST 83 H (17-59) U/L ALT 189 H (4-49) U/L Alkaline Phosphatase 309 H (38-126) U/L Total Protein 5.6 L (6.3-8.2) g/dL Albumin 2.7 L (3.5-5.0) g/dL 10/10/20 Range/Units 12:23 WBC (3.8-10.6) k/uL RBC (4.30-5.90) m/uL Hgb (13.0-17.5) gm/dL Hct (39.0-53.0) % Neutrophils # (Manual) (1.3-7.7) k/uL Monocytes # (Manual) (0-1.0) k/uL Eosinophils # (Manual) (0-0.7) k/uL Myelocytes # (Manual) (0) k/uL PT (9.0-12.0) sec INR (<1.2) APTT (22.0-30.0) sec Chloride (98-107) mmol/L BUN (9-20) mg/dL Glucose (74-99) mg/dL POC Glucose (mg/dL) 163 H (75-99) mg/dL AST (17-59) U/L ALT (4-49) U/L Alkaline Phosphatase (38-126) U/L Total Protein (6.3-8.2) g/dL Albumin (3.5-5.0) g/dL Assessment and Plan Assessment: 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 Rate is controlled Hyperlipidemia Hypertension Coronary artery disease with History of bypass and stent placement Plan: This is a pleasant 70 years old male with multiple metastatic disease involving the lung lymph node, liver and bone. The patient is scheduled for an inpatient liver biopsy on this coming , continue with heparin drip until then Discontinue IV fluids and give 1 dose of Lasix. Continue with antibiotics. Pulmonary consult on the case as well as hematology/oncology team Labs and medication. Monitor lytes and vitals. DVT and GI prophylaxis. Further recommendations as per clinical course of the patient DVT prophylaxis: heparin GI Prophylaxis: Ppi PT/OT: Patient refused rehab. He wants to go home Prognosis is guarded DO NOT RESUSCITATE per request
[2020-10-10 17:03] LABS: Glucose,Whole Blood 173 mg/dL (75-99)
[2020-10-10 19:56] LABS: Glucose,Whole Blood 177 mg/dL (75-99)
[2020-10-10] MEDS: LORazepam 0.5 MG TAB PO PRN (20:44)
[2020-10-10] MEDS: ATORVASTATIN 10 MG TAB PO SCH (20:44)
[2020-10-10] MEDS: NON FORMULARY DRUG (Acetaminophen/Diphenhydramine [Tylenol Pm 500-25mg] 1 EACH Tablet) PO SCH (20:46)
[2020-10-10] MEDS: HEPARIN SOD,PORK IN 0.45% NACL 25,000 UNIT in 0.45% NACL 1 250ML.BAG IV SCH (23:24)
[2020-10-11 07:34] LABS: Glucose,Whole Blood 138 mg/dL (75-99)
[2020-10-11 09:03] LABS: ALT 128 U/L (4-49); AST 54 U/L (17-59); African American GFR (CKD) >90 (>60 ml/min/1.73 sqM); Albumin 2.5 g/dL (3.5-5.0); Albumin/Globulin Ratio 0.9; Alkaline Phosphatase 287 U/L (38-126); Anion Gap 6 mmol/L; Blood Urea Nitrogen 24 mg/dL (9-20); Calcium 8.8 mg/dL (8.4-10.2); Carbon Dioxide 31 mmol/L (22-30); Chloride 110 mmol/L (98-107); Globulin 2.8 g/dL; Glucose 140 mg/dL (74-99); Non-African American GFR(CKD) 88 (>60 ml/min/1.73 sqM); Potassium 4.3 mmol/L (3.5-5.1); Sodium 147 mmol/L (137-145); Total Bilirubin 1.3 mg/dL (0.2-1.3); Total Protein 5.3 g/dL (6.3-8.2)
[2020-10-11] MEDS: INSULIN ASPART (NovoLOG) 100 UNIT/ML VIAL SQ SCH ×4 (09:09→21:27)
[2020-10-11] MEDS: PANTOPRAZOLE 40 MG TABLET PO SCH (09:17)
[2020-10-11] MEDS: ERGOCALCIFEROL 1,250 MCG (50,000 IU) CAPSULE PO SCH (09:17)
[2020-10-11] MEDS: METOPROLOL TARTRATE 50 MG TAB PO SCH ×2 (09:17→21:23)
[2020-10-11] MEDS: MULTIVITAMINS, THERA 1 EACH TAB PO SCH (09:17)
[2020-10-11] MEDS: LACTOBACILLUS ACIDOPH & BULGAR 1 EACH PACKET PO SCH (09:17)
[2020-10-11] MEDS: AZITHROMYCIN 500 MG TAB PO SCH (09:17)
[2020-10-11] MEDS: SENNOSIDES 8.6 MG TAB PO SCH ×2 (09:18→21:34)
[2020-10-11] MEDS: NYSTATIN 100,000 UNIT/ML SUSP 500,000 UNIT/5 ML CUP PO SCH ×4 (09:18→23:23)
[2020-10-11] MEDS: NON FORMULARY DRUG (Vitamin B Complex [Vitamin B Complex] 1 EACH Capsule) PO SCH (09:18)
[2020-10-11] MEDS: IPRATROPIUM-ALBUTEROL 3 ML NEB INHALATION SCH ×3 (09:25→21:37)
[2020-10-11] MEDS: FLUCONAZOLE IN NACL,ISO-OSM 100 MG in SALINE 1 50ML.BAG IVPB SCH (09:58)
[2020-10-11] MEDS ORDERED: FUROSEMIDE 10 MG/ML 4 ML VIAL IV STA (10:29)
--- NOTE | 2020-10-11 10:55 | XR ---
EXAMINATION TYPE: XR chest 1V DATE OF EXAM: 10/11/2020 COMPARISON: 10/10/2020 INDICATION: Follow-up previous abnormal TECHNIQUE: Single frontal view of the chest is obtained. FINDINGS: The heart size is mild the prominent. The pulmonary vasculature is normal. Infiltrate is present bilaterally greatest at the right lung base. Findings are improved from compari son. IMPRESSION: 1. Improving bilateral lung infiltrates
[2020-10-11] MEDS: FOLIC ACID 1 MG TAB PO SCH (10:56)
[2020-10-11] MEDS: THIAMINE 100 MG TAB PO SCH (10:56)
[2020-10-11 12:59] LABS: Glucose,Whole Blood 140 mg/dL (75-99)
--- NOTE | 2020-10-11 16:32 | P.PN ---
Subjective Progress Note Date: 10/11/20 Principal diagnosis: Elevated troponin. This is a 70-year-old white male familiar to my service. with history of multiple medical problems including coronary artery disease and previous CABG and stent placement. History of abdominal aortic aneurysm and previous stent placement, history of hypertension, mild asymptomatic COPD, remote smoking history quit smoking over 20 years ago. Patient normally sees me on a regular basis in the office, and I saw this patient basically about a month ago. Patient was recovering from Covid 19 infection which she had in June, and did not require any hospitalization. When I saw him about a month ago, follow- up chest x-ray was done in the office, and it was basically unremarkable. The chest x-ray was dated 09/03/2020, and it showed peripheral increased lung markings, chronic changes stable and it was compared to the chest x-ray that was done on 06/27/2020. On that specific chest x-ray, there was no suspicion of any findings to suggest malignancy. On 10/02/2020, patient was seen in the ER, and he had multiple constitutional symptoms including weakness, unable to ambulate, patient has been losing weight over the last month or so. A chest x-ray was done questioned some nodularity in the left lung, and after I reviewed the chest x-ray I recommended a CT angiogram of the chest. This came back quite abnormal showing extensive enlargement of lymph nodes throughout the mediastinum and right hilar region it also showed right apical and posterior right lower nodules. It also showed extensive multiple hypodense lesions within the liver compatible with metastasis. Patient had no previous history of malignancy. And over the years he declined having colonoscopy. Patient smoked until about 20 years ago, and he had family history of lung cancer./Father. Considering the findings on the CT of the chest and on the chest x-ray, I was asked to see this patient on consultation. Venous Doppler on this admission showed limited deep vein thromboses in the left lower extremity. CT of the abdomen and pelvis showed mostly numerous liver lesions suggestive of metastatic disease. Reevaluated today on 10/04/2020, patient continues to feel weakness. Denies any cough, no fever, no chills, no hemoptysis. Continues to have leukocytosis with WBC count of 48.2 hemoglobin is 12.1. Remains on heparin for his deep vein thrombosis, calcium is down to 11.2 from 12.6 yesterday. Ionized calcium yesterday was 6.7. Pro-calcitonin is 0.55, patient remains empirically on antibiotics in the form of Rocephin and Zithromax. Blood cultures and sputum cultures are negative so far since admission. Patient is supposedly scheduled to have CT guided liver biopsy or ultrasound guided liver biopsy tomorrow however he is on heparin and that has to be put on hold for 2 hours prior to the procedure. today is at bedside, and I discu ssed his condition with the at bedside. And explained to her that we are working him up for possible metastatic disease. Primary remains unknown, but I'm suspecting that we may be dealing with small cell lung cancer. Progress note dated 10/05/2020. This is a 70-year-old male, who sees my partner as a primary. He has a history of multiple medical problems including coronary artery disease, with previous bypass grafting, and stent placement, abdominal aortic aneurysm, with previous stent placement, hypertension, mild asymptomatic COPD, and a remote history of tobacco use. The patient did have COVID 19 infection in June. More recently, he is currently being evaluated for possible malignancy, may be lung cancer. The CT that was done showed extensive enlargement of lymph nodes throughout the mediastinum and right hilar region, and, it was discovered that he had metastatic deposits and multiple bony areas, and in the liver. Dr. Heck was concerned about small cell lung cancer. The only new labs today or a PT of 11.7, INR 1.1, PTT of 44.2. The patient had recently been on a factor X a inhibitor. The bone scan showed potential metastatic deposits in the left posterior 10th rib, inferior right scapula, and subtrochanteric right femur. In addition, there is an abnormal signal in the calvarium. Progress note dated 10/06/2020. 70-year-old gentleman, currently being evaluated for possible metastatic colon cancer. Currently, the patient's awaiting a liver biopsy. Currently, he has no major complaints. He denies any shortness of breath, chest pain or chest discomfort, fever, chills, cough, or phlegm production. The results of the computed tomography scan and bone scan were shared with the patient. I did mention to him that the determination of treatment options depend on the type of cancer that is proven. This can only be done with a biopsy. Interventional radiology is planning to biopsy one of the liver lesions. White count 58.5, hemoglobin 12.5, hematocrit 38.5, and platelet count 263,000. PTT is 47.7. Sodium 139, potassium 3.9, chlorides 110, CO2 20, BUN is 20, and creatinine is 0.68. Calcium is 10.7. Albumin 2.9. Progress note dated 10/07/2020. 70-year-old gentleman, currently being evaluated for possible metastatic lung cancer. The patient is awaiting a liver biopsy. The patient was previously on a factor X a inhibitor, and also aspirin. Apparently, interventional radiology does not want to do liver biopsy until October 12, which is this upcoming Monday. The patient doesn't really want to sit in the hospital until then, and I was wondering whether or not it would be okay to send him home on Lovenox subcu twice a day as a bridge, so that he could still get his liver biopsy on Monday. Apparently that will be explored by the primary service tomorrow. Currently he is on 3 L nasal cannula. White count of 65.5, hemoglobin 12.2, hematocrit 36.5, and platelet count is 284,000. Progress note dated 10/08/2020. 70-year-old gentleman probably be evaluated for possible metastatic lung cancer. The patient is awaiting a liver biopsy. The patient was previously on a factor X a inhibitor and also aspirin. Interventional radiology did not wanted to the liver biopsy before October 12. The patient himself does not want to sit in the hospital till then. I mention yesterday to the nurses, the patient could be discharged on low molecular weight heparin, given subcutaneously, twice a day, as a bridge until he has a liver biopsy. The primary service was going to check into that today. Today's white count is 73.8, hemoglobin 12, hematocrit 37, and platelet count 293,000. PTT is 64.9. Progress note dated 10/11/2020. 70-year-old male, who is currently being evaluated for possible metastatic lung cancer. The patient was to have a liver biopsy tomorrow. I had a long conversation with the , who states that the patient not agree to any treatment whatsoever, even if the biopsy shows cancer. I didn't question whether or not he should even have the biopsy. In addition, over the last 36 hours, his condition has worsened. He's become much more lethargic and agitated. He is on 3 L nasal cannula. He is getting saline at 10 mL an hour. He is also getting IV heparin. Actually, his would like to take him home, and the patient would like to go home. He is currently now a DO NOT RESUSCITATE. The patient would like to go home on home hospice according to his . Hence, I told the nurse, Bernadine, they canceled the biopsy, and work on getting the patient seemed by hospice, and discharged home. Even if the patient does have a diagnosis of metastatic lung cancer, his condition is poor, and he would not do well with any treatment whatsoever. Current labs included PTT of 47.9, sodium 147, potassium 4.3, chlorides 110, CO2 31, anion gap 6, BUN 24, and creatinine 0.82. AST was 54, ALT 128. Chest x-ray shows bilateral lung infiltrates. Objective - Vital Signs Vital signs: Vital Signs Temp 98.5 F 10/11/20 12:57 Pulse 67 10/11/20 12:57 Resp 26 H 10/11/20 12:57 BP 128/72 10/11/20 12:57 Pulse Ox 94 L 10/11/20 12:57 Intake & Output 10/10/20 10/11/20 10/11/20 18:59 06:59 18:59 Intake Total 161.5 257 107.5 Output Total 800 800 Balance -638.5 257 -692.5 Intake: Intake, IV Titration 101.5 137 107.5 Amount Heparin Sod,Pork in 0.45% 101.5 137 107.5 NaCl 25,000 unit In 0.45 % NaCl 1 250ml.bag @ 9. 2593 UNITS/KG/HR 10 mls/ hr IV .Q24H [facility] Rx#: [id number] Oral 60 120 Output: Urine 800 800 Other: Voiding Method Urinal Urinal Urinal Incontinent Incontinent Incontinent # Voids 3 3 - Exam No acute distress, confused, and somewhat lethargic. Saturations are 90% on 3 L nasal O2. HEENT examination is grossly unremarkable. Neck supple. Full range of motion. No adenopathy thyromegaly or neck vein distention. Cardiovascular examination reveals an irregular rhythm and rate. S1-S2 normal. No S3 or S4. No discernible murmur noted. Heart rate 121 bpm. Lungs reveal coarse bilateral breath sounds. There is diffuse rhonchi throughout. Scattered crackles are noted as well. No wheezes. Breath sounds are diminished. He does not take deep breaths. Abdomen soft bowel sounds are heard. No masses or tenderness. Extremities are intact. No cyanosis clubbing or edema. Skin is without rash or lesion. Neurologic examination is lethargic/somnolent, and very fidgety. - Labs CBC & Chem 7: 10/10/20 06:53 10/11/20 08:12 Labs: Abnormal Lab Results - Last 24 Hours (Table) 10/10/20 10/10/20 10/11/20 Range/Units 17:01 19:54 07:32 APTT (22.0-30.0) sec Sodium (137-145) mmol/L Chloride (98-107) mmol/L Carbon Dioxide (22-30) mmol/L BUN (9-20) mg/dL Glucose (74-99) mg/dL POC Glucose (mg/dL) 173 H 177 H 138 H (75-99) mg/dL ALT (4-49) U/L Alkaline Phosphatase (38-126) U/L Total Protein (6.3-8.2) g/dL Albumin (3.5-5.0) g/dL 10/11/20 10/11/20 10/11/20 Range/Units 08:12 08:12 12:55 APTT 47.9 H (22.0-30.0) sec Sodium 147 H (137-145) mmol/L Chloride 110 H (98-107) mmol/L Carbon Dioxide 31 H (22-30) mmol/L BUN 24 H (9-20) mg/dL Glucose 140 H (74-99) mg/dL POC Glucose (mg/dL) 140 H (75-99) mg/dL ALT 128 H (4-49) U/L Alkaline Phosphatase 287 H (38-126) U/L Total Protein 5.3 L (6.3-8.2) g/dL Albumin 2.5 L (3.5-5.0) g/dL Assessment and Plan Assessment: Diffuse thoracic/mediastinal adenopathy, 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 Multiple metastatic deposits noted in the liver and bony structures. Deep vein thrombosis, left lower extremity. Prior history of COVID 19 infection, June 2020. History of mild asymptomatic COPD. Prior history of tobacco use. History of CAD, with previous bypass grafting, and stent. Status post stenting of abdominal aortic aneurysm. Prior history of cardiac arrest in our office, requiring brief CPR. Hypercalcemia, thought to be related to underlying malignancy. Plan: Plan dated 10/05/2020. The patient will eventually need a liver biopsy to be performed by interventional radiology. If nondiagnostic, we might consider bronchoscopy and transbronchial needle aspiration of the thoracic nodes. The patient is being treated for his hypercalcemia. He understands the seriousness of the problem. Interventional radiology is waiting a couple days because the patient was on a factor X a inhibitor. We will continue to follow. Prognosis is guarded. Plan dated 10/06/2020. The patient's calcium is down to 10.7. The patient is to have a liver biopsy performed by interventional radiology. I believe is going to be done on . Additional recommendations and suggestions are forthcoming. Currently, the patient stable. Patient currently is on a heparin drip. Patient was previously on a factor X a inhibitor. Prognosis is guarded. All questions are answered. Plan dated 10/07/2020. Apparently physical therapy told the family, that the patient was stable enough to be discharged home because he can manage himself at home. The patient would like to go home rather than sit in the hospital over the next 5 days when he for the liver biopsy on October 12. He is currently on IV heparin. The patient could be transitioned to subcutaneous Lovenox twice a day, until his liver biopsy will be performed on October 12. His overall prognosis is poor given the extent of what appears to be significantly metastatic disease. We will continue to follow. I did alert the event planner/top case assembler. Plan dated 10/08/2020. The patient wasn't scheduled for a liver biopsy until October 12. The patient is getting restless because he does not want to be here in the hospital. I suggested the possibility of him going on Lovenox, twice a day, until his liver biopsy could be done. The primary service would check into this. Additional recommendations and suggestions are forthcoming. We'll continue to follow. Plan dated 10/11/2020. I had a long conversation with the today. She states that the patient would not want any treatment whatsoever even with a diagnosis of cancer is made. Also, the patient my opinion is in no condition to receive any treatment at this time. Over the last day and a half, his condition has worsened. He is much more confused and restless. He somewhat lethargic today. His x-ray had worsened, and he received some Lasix which seemed to make things a bit better, but his saturations today are only in the high 80s low 90s on 3 L. She would like a hospice consultation, and she would like to get him home if possible. Given his overall clinical condition, I do not think that's unreasonable. Time with Patient: Less than 30
[2020-10-11 17:34] LABS: Glucose,Whole Blood 141 mg/dL (75-99)
[2020-10-11] MEDS: HYDROcodone/APAP 5-325MG 1 EACH TAB PO PRN (18:48)
[2020-10-11 20:12] LABS: Glucose,Whole Blood 140 mg/dL (75-99)
--- NOTE | 2020-10-11 20:42 | P.PN ---
Subjective This is a pleasant 70 years old male with past medical history of asthma/COPD, hypertension, hyperlipidemia. To presents with shortness of breath. 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 No other significant comorbidity including chronic atrial fibrillation was on Eliquis at home and currently he is on heparin drip, also patient with left DVT. Also he has evidence of right lower lobe pulmonary infiltrate suspicious for pneumonia and he is currently covered with Zithromax and ceftriaxone. Also he is on Solu- Medrol for his possible COPD exacerbation. He is currently today was sitting in chair, feeling generally weak, some dyspnea and little coughing. Also he was complaining from constipation and mild back pain. He is planned to get a liver biopsy to decide the treatment with chemotherapy, and patient biopsy could be done this Monday however benefits going to be done as an outpatient is going to be next Monday on 10/16, at the same time patient refused rehab and he wants to go home with a wheelchair and comorbid however is hard for his family to take care of him given his size and comorbidities. He is hemodynamically stable. Labs showed leukocytosis of 70 3.8K, hemoglobin 12. Platelets are normal. Glucose controlled 10/09/2020 Patient developed tachycardia thought to be A. fib, also he has some chest pain and EKG was obtained and showed some ST T changes thought is to do digitalis effect. Repeat troponin was done and was negative. Better on the morning he was more confused and disoriented, he was pulling IV line and the tubes, his heart rate jumped 120-160 Because of his period of confusion code stroke was called, however patient shortly thereafter returned to his full consciousness, and workup was negative including CT of the brain, CT of the brain and MRI of the brain, cerebrospinal more details showing still extensive high white cell count at 70 K. However his oxygen requirement came down to 2 L/m from 4 L yesterday Patient remains on Zithromax, fluconazole, ceftriaxone and normal saline at 100 mL/h Heparin was discontinued transiently and with negative MRI it can be resumed 10/10/2020 Patient was agitated overnight and this morning, he was given Seroquel last night and Xanax this morning, this morning he is a sleepy, otherwise very briefly on verbal stimuli some go back to sleep right away. Patient was noticed to be decreasing with some tachypnea. Repeat chest x-ray today showing pulmonary congestion suspected as bilateral infiltrate, normal saline at 100 mL per hour was stopped, 1 dose of Lasix given last night and this morning. He is saturating 94% on 4 L oxygen via nasal cannula. He has persistent leukocytosis and 79K,. He continue on fluconazole and Zithromax. Ceftriaxone course was finished. He is currently on heparin drip. Patient is expected to have a liver biopsy on Monday wanted the patient to be DO NOT RESUSCITATE Discussed with staff 10/11/2020 Patient is confused today is awake and he can tell me his name however is still somewhat disoriented to the surrounding is tachypneic but better than yesterday and his breathing at a rate of 24 reds per minute and he is saturating 94% and is ready to oxygen via nasal cannula. His sodium slightly up today at 147, he has leukemoid reaction with WBC of 70 9K. Pulmonary team have the chance to meet with the who verbalized concerns for his management plan and mentioned that she preferred hospice. It looks like pulmonary team see that reasonable. And given his poor functional status he might not tolerate extensive chemoradiotherapy given his metastatic disease and multiple comorbidity. Because of that we will hold further workup and labs tomorrow morning. We discussed with the about her wishes and her wishes [facility] to resume treatment [facility] with hospice Currently patient has DO NOT RESUSCITATE order. He is currently on heparin drip, Zithromax and fluconazole. Ceftriaxone course has finished. Objective - Vital Signs Vital signs: Vital Signs Temp 98.5 F 10/11/20 12:57 Pulse 67 10/11/20 12:57 Resp 26 H 10/11/20 12:57 BP 128/72 10/11/20 12:57 Pulse Ox 94 L 10/11/20 12:57 Intake & Output 10/11/20 10/11/20 10/12/20 06:59 18:59 06:59 Intake Total 257 107.5 Output Total 800 Balance 257 -692.5 Intake: Intake, IV Titration 137 107.5 Amount Heparin Sod,Pork in 0.45% 137 107.5 NaCl 25,000 unit In 0.45 % NaCl 1 250ml.bag @ 9. 2593 UNITS/KG/HR 10 mls/ hr IV .Q24H [facility] Rx#: [id number] Oral 120 Output: Urine 800 Other: Voiding Method Urinal Urinal Incontinent Incontinent # Voids 3 3 - Exam -GENERAL: The patient is confused and lethargic, not in any acute distress. Generally weak HEENT: Pupils are round and equally reacting to light. EOMI. No scleral icterus. No conjunctival pallor. Normocephalic, atraumatic. No pharyngeal erythema. No thyromegaly. CARDIOVASCULAR: S1 and S2 present. No murmurs, rubs, or gallops. -PULMONARY: Chest is clear to auscultation, no wheezing or crackles. Bilateral crepitation ABDOMEN: Soft, nontender, nondistended, normoactive bowel sounds. No palpable organomegaly. MUSCULOSKELETAL: No joint swelling or deformity. EXTREMITIES: No cyanosis, clubbing, or pedal edema. NEUROLOGICAL: Gross neurological examination did not reveal any focal deficits. SKIN: No rashes. no petechiae. - Labs CBC & Chem 7: 10/10/20 06:53 10/11/20 08:12 Labs: Abnormal Lab Results - Last 24 Hours (Table) 10/11/20 10/11/20 10/11/20 Range/Units 07:32 08:12 08:12 APTT 47.9 H (22.0-30.0) sec Sodium 147 H (137-145) mmol/L Chloride 110 H (98-107) mmol/L Carbon Dioxide 31 H (22-30) mmol/L BUN 24 H (9-20) mg/dL Glucose 140 H (74-99) mg/dL POC Glucose (mg/dL) 138 H (75-99) mg/dL ALT 128 H (4-49) U/L Alkaline Phosphatase 287 H (38-126) U/L Total Protein 5.3 L (6.3-8.2) g/dL Albumin 2.5 L (3.5-5.0) g/dL 10/11/20 10/11/20 10/11/20 Range/Units 12:55 17:31 20:10 APTT (22.0-30.0) sec Sodium (137-145) mmol/L Chloride (98-107) mmol/L Carbon Dioxide (22-30) mmol/L BUN (9-20) mg/dL Glucose (74-99) mg/dL POC Glucose (mg/dL) 140 H 141 H 140 H (75-99) mg/dL ALT (4-49) U/L Alkaline Phosphatase (38-126) U/L Total Protein (6.3-8.2) g/dL Albumin (3.5-5.0) g/dL Assessment and Plan Assessment: Multiple lung metastases and pulmonary malignancies with small cell cancer, associated with diffuse thoracic and mediastinal lymphadenopathy Metastatic liver disease Osseous metastasis to the left 10th rib posteriorly, right scapula and right femur Significant deconditioning with generalized weakness and metabolic encephalopathy Fluid overload with pulmonary congestion Right lower lobe infiltrate suspicious for pneumonia Acute COPD exacerbation Left DVT acute on chronic versus chronic only Chronic atrial fibrillation, was on Eliquis at home. Rate is controlled Hyperlipidemia Hypertension Coronary artery disease with History of bypass and stent placement Plan: This is a pleasant 70 years old male with multiple metastatic disease involving the lung lymph node, liver and bone. The patient is scheduled for an inpatient liver biopsy on this coming which is tomorrow however might prefer hospice with home instead per her conversation with pulmonary team We will discuss with 5 tomorrow, continue with heparin drip until then IV fluids was discontinued yesterday and give 1 dose of Lasix today as well. Continue with antibiotics. Pulmonary consult on the case as well as hematology/oncology team Labs and medication. Monitor lytes and vitals. DVT and GI prophylaxis. Further recommendations as per clinical course of the patient DVT prophylaxis: heparin GI Prophylaxis: Ppi PT/OT: Patient refused rehab. He wants to go home Prognosis is guarded DO NOT RESUSCITATE per request
[2020-10-11] MEDS: LORazepam 0.5 MG TAB PO PRN (21:20)
[2020-10-11] MEDS: ATORVASTATIN 10 MG TAB PO SCH (21:34)
[2020-10-11] MEDS: HEPARIN SOD,PORK IN 0.45% NACL 25,000 UNIT in 0.45% NACL 1 250ML.BAG IV SCH (23:23)
[2020-10-11] MEDS: NON FORMULARY DRUG (Acetaminophen/Diphenhydramine [Tylenol Pm 500-25mg] 1 EACH Tablet) PO SCH (23:53)
[2020-10-12 07:19] LABS: Glucose,Whole Blood 143 mg/dL (75-99)
[2020-10-12] MEDS: IPRATROPIUM-ALBUTEROL 3 ML NEB INHALATION SCH ×2 (07:34→11:48)
[2020-10-12] MEDS: AZITHROMYCIN 500 MG TAB PO SCH (07:47)
[2020-10-12] MEDS: THIAMINE 100 MG TAB PO SCH (07:47)
[2020-10-12] MEDS: FOLIC ACID 1 MG TAB PO SCH (07:47)
[2020-10-12] MEDS: MULTIVITAMINS, THERA 1 EACH TAB PO SCH (07:47)
[2020-10-12] MEDS: PANTOPRAZOLE 40 MG TABLET PO SCH (07:47)
[2020-10-12] MEDS: SENNOSIDES 8.6 MG TAB PO SCH (07:47)
[2020-10-12] MEDS: ERGOCALCIFEROL 1,250 MCG (50,000 IU) CAPSULE PO SCH (07:47)
[2020-10-12] MEDS: METOPROLOL TARTRATE 50 MG TAB PO SCH (07:47)
[2020-10-12] MEDS: NYSTATIN 100,000 UNIT/ML SUSP 500,000 UNIT/5 ML CUP PO SCH ×3 (07:47→11:41)
[2020-10-12] MEDS: LACTOBACILLUS ACIDOPH & BULGAR 1 EACH PACKET PO SCH (07:47)
[2020-10-12] MEDS: INSULIN ASPART (NovoLOG) 100 UNIT/ML VIAL SQ SCH ×2 (07:48→11:40)
[2020-10-12] MEDS: NON FORMULARY DRUG (Vitamin B Complex [Vitamin B Complex] 1 EACH Capsule) PO SCH (07:50)
[2020-10-12] MEDS: FLUCONAZOLE IN NACL,ISO-OSM 100 MG in SALINE 1 50ML.BAG IVPB SCH (07:55)
[2020-10-12 11:41] LABS: Glucose,Whole Blood 132 mg/dL (75-99)
[2020-10-12] MEDS: HYDROcodone/APAP 5-325MG 1 EACH TAB PO PRN (11:53)
[2020-10-12] MEDS ORDERED: MORPHINE SULFATE 2 MG/ML SYRINGE IVP STA (12:05)
[2020-10-12 12:25] VITALS: BP 140/82; PULSE 46; RESP 21; TEMP 97.8
--- NOTE | 2020-10-12 13:43 | P.DS ---
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 Rate is controlled Hyperlipidemia Hypertension Coronary artery disease with History of bypass and stent placement Hospital course: This is a pleasant 70 years old male with past medical history of asthma/COPD, hypertension, hyperlipidemia. To presents with shortness of breath. He was recently diagnosed with copious pneumonia and had symptoms of generalized weakness and body aches and coughing, however coronal virus was not detected during this admission, and patient was found to have diffuse thoracic and mediastinal lymphadenopathy with lung metastasis is related to small cell cancer. 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 No other significant comorbidity including chronic atrial fibrillation was on Eliquis at home and currently he is on heparin drip, also patient with left DVT. Also he has evidence of right lower lobe pulmonary infiltrate suspicious for pneumonia and he is currently covered with Zithromax and ceftriaxone. Also he is on Solu- Medrol for his possible COPD exacerbation. Patient is supposed to get never biopsy on 10/12 and he kept over the weekend on heparin drip however patient was doing poorly he developed pulmonary congestion and a flap was stopped and received diuresis, he was confused combative. He was deconditioning, does not follow commands. Also he was constipated, at times lethargic and confused. Also patient is with poor appetite and poor oral intake. Because of his severe deconditioning, metabolic encephalopathy we were not sure patient can't tolerate any further chemoradiotherapy or going to make a difference in his quality of life and especially he has severe disease burden. already talked to pulmonary team yesterday and stated her wishes for hospice care, today her case worker talk to her several times and she confirms that she wants him to be on hospice. Patient has DO NOT RESUSCITATE order per . His prognosis is extremely poor and most likely he will not survive his illness anyway so that looks reasonable for him to go for hospice care/comfort care. Undergo to make patient comfortable in the last day of his life. Physical exam -Gen: patient is confused, most comfortable. Generally week. Obese CVS: S1-S2, RRR, no murmur -Lungs: B/L CTA, no wheezing. Patient tachypneic with scattered crepitation Abdomen: soft, no distention, no tenderness, positive bowel sounds Extremity: no leg edema or induration Time spent more than 35 minutes Plan - Discharge Summary Discharge Rx Participant: No New Discharge Prescriptions: New Folic Acid 1 mg PO DAILY@1200 #30 tab Metoprolol Tartrate [Lopressor] 50 mg PO BID #60 tab HYDROcodone/APAP 5-325MG [Cypress 5-325] 1 each PO Q6HR PRN #12 tab PRN Reason: Pain Sennosides [Senokot] 8.6 mg PO BID 15 Days #30 tab Albuterol Inhaler [Ventolin Hfa Inhaler] 2 puff INHALATION ONCE #1 inh Thiamine [Vitamin B-1] 100 mg PO DAILY@1200 #30 tab Magnesium Hydroxide [Milk of Magnesia Concentrate] 2,400 mg PO BID PRN #50 ml PRN Reason: Constipation Multivitamins, Thera [Multivitamin (formulary)] 1 each PO DAILY@1200 #30 tab predniSONE 10 mg PO DIRECTED #40 tab Pantoprazole [Protonix] 40 mg PO AC-BRKFST #30 tablet. Continue Acetaminophen [Tylenol] 650 mg PO Q4H PRN PRN Reason: Pain Or Fever > 100.5 Nitroglycerin Sl Tabs [Nitrostat] 0.4 mg SUBLINGUAL Q5M PRN PRN Reason: Chest Pain Simvastatin [Zocor] 20 mg PO HS Apixaban [Eliquis] 5 mg PO BID #0 Ergocalciferol (Vitamin D2) [Vitamin D2 (2000 Iu)] 50 mcg PO DAILY Aspirin EC [Ecotrin Low Dose] 81 mg PO W/SUPPER #0 Discontinued Acetaminophen/Diphenhydramine [Tylenol Pm] 1 tab PO HS Vitamin B Complex 1 cap PO DAILY Metoprolol Tartrate [Lopressor] 25 mg PO BID Otc Prostate Supplement 1 tab PO TID Magnesium Unknown Dose 2 tab PO W/SUPPER L.acidoph,Paracasei, B.lactis [Probiotic] 1 cap PO DAILY Discharge Medication List Acetaminophen [Tylenol] 650 mg PO Q4H PRN 02/19/14 [History] Nitroglycerin Sl Tabs [Nitrostat] 0.4 mg SUBLINGUAL Q5M PRN 02/19/14 [History] Simvastatin [Zocor] 20 mg PO HS 05/18/16 [History] Ergocalciferol (Vitamin D2) [Vitamin D2 (2000 Iu)] 50 mcg PO DAILY 10/02/20 [History] Albuterol Inhaler [Ventolin Hfa Inhaler] 2 puff INHALATION ONCE #1 inh 10/08/20 [Rx] Apixaban [Eliquis] 5 mg PO BID #0 10/08/20 [Rx] Aspirin EC [Ecotrin Low Dose] 81 mg PO W/SUPPER #0 10/08/20 [Rx] Folic Acid 1 mg PO DAILY@1200 #30 tab 10/08/20 [Rx] HYDROcodone/APAP 5-325MG [Cypress 5-325] 1 each PO Q6HR PRN #12 tab 10/08/20 [Rx] Magnesium Hydroxide [Milk of Magnesia Concentrate] 2,400 mg PO BID PRN #50 ml 10/08/20 [Rx] Metoprolol Tartrate [Lopressor] 50 mg PO BID #60 tab 10/08/20 [Rx] Multivitamins, Thera [Multivitamin (formulary)] 1 each PO DAILY@1200 #30 tab 10/08/20 [Rx] Pantoprazole [Protonix] 40 mg PO JF-RONKFSEmanuel #30 tablet. 10/08/20 [Rx] Sennosides [Senokot] 8.6 mg PO BID 15 Days #30 tab 10/08/20 [Rx] Thiamine [Vitamin B-1] 100 mg PO DAILY@1200 #30 tab 10/08/20 [Rx] predniSONE 10 mg PO DIRECTED #40 tab 10/08/20 [Rx] Follow up Appointment(s)/Referral(s): Alex Ty MD [Primary Care Provider] - 10/13/20 3:00 pm Richie Daily MD [STAFF PHYSICIAN] - 1 Week (the office will call you again. ) Aging,False Pass On [NON-STAFF] - Chandrakant Esteves MD [STAFF PHYSICIAN] - 2 Weeks [facility] [NON-STAFF] - 1 Week Activity/Diet/Wound Care/Special Instructions: Liver Biopsy - Monday10/12/20 Patient requires wheelchair at time of discharge to assist with completion of ADLs which cannot be done with a cane or walker secondary to medical debility from COVID. Patient cannot self propel, his will be at home to help him propel the chair. Patient requires a bedside commode at discharge secondary to being room confined from unsteady gait secondary to COVID
--- NOTE | 2020-10-12 14:56 | P.PN ---
Subjective Progress Note Date: 10/12/20 10/12/2020, the patient is still in poor condition. The plan is to discharge this patient home with hospice care. No new blood work is available. The patient is currently on 3 L of oxygen by nasal cannula. No other significant events overnight. Discharge papers have been already supplemented. Objective - Vital Signs Vital signs: Vital Signs Temp 97.8 F 10/12/20 12:25 Pulse 46 L 10/12/20 12:25 Resp 21 10/12/20 12:25 BP 140/82 10/12/20 12:25 Pulse Ox 95 10/12/20 12:25 Intake & Output 10/11/20 10/12/20 10/12/20 18:59 06:59 18:59 Intake Total 107.5 132.333 101.667 Output Total 800 Balance -692.5 132.333 101.667 Weight 108 kg Intake: Intake, IV Titration 107.5 132.333 101.667 Amount Heparin Sod,Pork in 0.45% 107.5 132.333 101.667 NaCl 25,000 unit In 0.45 % NaCl 1 250ml.bag @ 9. 2593 UNITS/KG/HR 10 mls/ hr IV .Q24H [facility] Rx#: [id number] Oral 0 Output: Urine 800 Other: Voiding Method Urinal Diaper Diaper Incontinent # Voids 3 2 - Exam No acute distress, confused, and somewhat lethargic. Saturations are 90% on 3 L nasal O2. HEENT examination is grossly unremarkable. Neck supple. Full range of motion. No adenopathy thyromegaly or neck vein distention. Cardiovascular examination reveals an irregular rhythm and rate. S1-S2 normal. No S3 or S4. No discernible murmur noted. Heart rate 121 bpm. Lungs reveal coarse bilateral breath sounds. There is diffuse rhonchi throughout. Scattered crackles are noted as well. No wheezes. Breath sounds are diminished. He does not take deep breaths. Abdomen soft bowel sounds are heard. No masses or tenderness. Extremities are intact. No cyanosis clubbing or edema. Skin is without rash or lesion. Neurologic examination is lethargic/somnolent, and very fidgety. - Labs CBC & Chem 7: 10/10/20 06:53 10/11/20 08:12 Labs: Abnormal Lab Results - Last 24 Hours (Table) 10/11/20 10/11/20 10/12/20 Range/Units 17:31 20:10 07:18 APTT (22.0-30.0) sec POC Glucose (mg/dL) 141 H 140 H 143 H (75-99) mg/dL 10/12/20 10/12/20 Range/Units 08:08 11:39 APTT 43.2 H (22.0-30.0) sec POC Glucose (mg/dL) 132 H (75-99) mg/dL Assessment and Plan Plan: Diffuse thoracic/mediastinal adenopathy, 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 Multiple metastatic deposits noted in the liver and bony structures. Deep vein thrombosis, left lower extremity. Prior history of COVID 19 infection, June 2020. History of mild asymptomatic COPD. Prior history of tobacco use. History of CAD, with previous bypass grafting, and stent. Status post stenting of abdominal aortic aneurysm. Prior history of cardiac arrest in our office, requiring brief CPR. Hypercalcemia, thought to be related to underlying malignancy. Plan: Proceed with hospice care. Pulmonary critical care services will sign off
--- NOTE | 2020-10-12 15:05 | P.PN ---
Subjective Progress Note Date: 10/12/20 Principal diagnosis: Lung and liver lesions, hilar and mediastinal lymphadenopathy, bone lesions In follow-up today patient's and son are at the bedside. Pt is mostly non-verbal, sleeping during our entire conversation, he opens his eyes slightly to voice and touch, he does not appear to be in any distress Objective - Vital Signs Vital signs: Vital Signs Temp 97.8 F 10/12/20 12:25 Pulse 46 L 10/12/20 12:25 Resp 21 10/12/20 12:25 BP 140/82 10/12/20 12:25 Pulse Ox 95 10/12/20 12:25 Intake & Output 10/11/20 10/12/20 10/12/20 18:59 06:59 18:59 Intake Total 107.5 132.333 101.667 Output Total 800 Balance -692.5 132.333 101.667 Weight 108 kg Intake: Intake, IV Titration 107.5 132.333 101.667 Amount Heparin Sod,Pork in 0.45% 107.5 132.333 101.667 NaCl 25,000 unit In 0.45 % NaCl 1 250ml.bag @ 9. 2593 UNITS/KG/HR 10 mls/ hr IV .Q24H [facility] Rx#: [id number] Oral 0 Output: Urine 800 Other: Voiding Method Urinal Diaper Diaper Incontinent # Voids 3 2 - Constitutional General appearance: Present: no acute distress, obese - EENT EENT Comment(s): very dry mucus membranes Eyes: Present: anicteric sclerae - Respiratory Details: shallow - Cardiovascular Details: skin cool to touch - Musculoskeletal Musculoskeletal: Present: generalized weakness - Psychiatric Psychiatric: Absent: A&O x's 3, appropriate affect, intact judgment & insight - Labs CBC & Chem 7: 10/10/20 06:53 10/11/20 08:12 Labs: Abnormal Lab Results - Last 24 Hours (Table) 10/11/20 10/11/20 10/12/20 Range/Units 17:31 20:10 07:18 APTT (22.0-30.0) sec POC Glucose (mg/dL) 141 H 140 H 143 H (75-99) mg/dL 10/12/20 10/12/20 Range/Units 08:08 11:39 APTT 43.2 H (22.0-30.0) sec POC Glucose (mg/dL) 132 H (75-99) mg/dL Assessment and Plan (1) Hypercalcemia Current Visit: Yes Status: Acute Priority: High Code(s): E83.52 - HYPERCALCEMIA SNOMED Code(s): 24516256 (2) Liver lesion Current Visit: Yes Status: Acute Priority: High Code(s): K76.9 - LIVER DISEASE, UNSPECIFIED SNOMED Code(s): 560153973 (3) Pulmonary nodule Current Visit: Yes Status: Acute Priority: High Code(s): R91.1 - SOLITARY PULMONARY NODULE SNOMED Code(s): 647323837 (4) Thrush Current Visit: Yes Status: Resolved Priority: Medium Code(s): B37.0 - CANDIDAL STOMATITIS SNOMED Code(s): 11792878 (5) Left leg DVT Current Visit: Yes Status: Acute Priority: High Code(s): I82.402 - ACUTE EMBOLISM AND THOMBOS UNSP DEEP VEINS OF L LOW EXTREM SNOMED Code(s): 910415661 Plan: Due to pt rather rapid clinical decline, poor PS at baseline only worsening pt family has opted for hospice care. I answered all of family's questions and concerns to the best of my ability and to their satisfaction. Reviewed case with CM Time with Patient: Greater than 30
== END 2020-10-12 16:05 | disposition hospice, home (50) | DRG 180 ==
LOC: EC 09:02 → 3SCARD 13:15 → 5NMEDONC 10-08 15:29
PROVIDERS: ADMIT Hospitalist; ATTEND Hospitalist
DX: C34.90 Malignant neoplasm of unspecified part of unspecified bronchus or lung (principal); J18.9 Pneumonia, unspecified organism; G93.41 Metabolic encephalopathy; E87.1 Hypo-osmolality and hyponatremia; C78.7 Secondary malignant neoplasm of liver and intrahepatic bile duct; B37.0 Candidal stomatitis; C79.51 Secondary malignant neoplasm of bone; J44.0 Chronic obstructive pulmonary disease with (acute) lower respiratory infection; I82.402 Acute embolism and thrombosis of unspecified deep veins of left lower extremity; Z51.5 Encounter for palliative care; Z66 Do not resuscitate; Z86.16 Personal history of COVID-19; Z95.1 Presence of aortocoronary bypass graft; Z79.01 Long term (current) use of anticoagulants; I25.2 Old myocardial infarction; E78.5 Hyperlipidemia, unspecified; Z87.891 Personal history of nicotine dependence; I50.9 Heart failure, unspecified; I11.0 Hypertensive heart disease with heart failure; Z87.01 Personal history of pneumonia (recurrent); E83.52 Hypercalcemia; I49.3 Ventricular premature depolarization; R00.0 Tachycardia, unspecified; R79.89 Other specified abnormal findings of blood chemistry; Z86.79 Personal history of other diseases of the circulatory system; I25.10 Atherosclerotic heart disease of native coronary artery without angina pectoris; Z95.5 Presence of coronary angioplasty implant and graft; Z68.31 Body mass index [BMI] 31.0-31.9, adult; E66.9 Obesity, unspecified; R26.9 Unspecified abnormalities of gait and mobility; R59.0 Localized enlarged lymph nodes; K59.00 Constipation, unspecified; Z20.822 Contact with and (suspected) exposure to COVID-19; Z79.82 Long term (current) use of aspirin; I48.0 Paroxysmal atrial fibrillation; Z86.74 Personal history of sudden cardiac arrest; G47.00 Insomnia, unspecified; K12.1 Other forms of stomatitis; D72.823 Leukemoid reaction; Z80.1 Family history of malignant neoplasm of trachea, bronchus and lung
CPT/HCPCS: 36415; 70450; 70496; 70498; 70551; 71045; 71046; 71275; 74176; 78306; 80048; 80053; 80061; 81003; 82306; 82310; 82330; 82728; 83605; 83615; 83735; 83880; 83970; 84100; 84145; 84443; 84484; 84550; 85025; 85027; 85379; 85610; 85652; 85730; 86140; 87040; 87070; 87205; 87635; 93005; 93306; 93970; 94640; 94760; 96360; 96361; 99285